=== PATIENT | female | born 1970 | race Caucasian/White ===

== ENCOUNTER 2018-04-20 03:39 | Inpatient (IN) | payer SELFPAY ==
[2018-04-20] VITALS (17 sets, daily range): BP systolic 119–168; BP diastolic 55–113; PULSE 92–114; RESP 24; TEMP 93–96.6; O2SAT 74–100
[~2018-04-20] VITALS: Ht 165.1 cm; Wt 86.0 kg
[2018-04-20] MEDS ORDERED: NITROGLYCERIN-D5W 50 MG/250 ML 250 ML IV PRN ×3 (03:45→11:30)
[2018-04-20] MEDS ORDERED: ASPIRIN 300 MG SUPP RECTAL ONE (03:45)
[2018-04-20] MEDS ORDERED: HEPARIN SODIUM - IV 10,000 UNITS/10 ML VIAL IV PUSH STA (03:45)
[2018-04-20] MEDS ORDERED: SODIUM CHLORIDE 0.9% FLUSH 10 ML FLUSH IVF PRN ×2 (03:45)
[2018-04-20] MEDS ORDERED: LORazepam 2 MG/ML VIAL IV PUSH ONE (03:45)
[2018-04-20] MEDS ORDERED: NITROGLYCERIN 0.4 MG SL 25 TABS/BTL SL STA (03:45)
[2018-04-20] MEDS ORDERED: SODIUM CHLOR 0.9% 1000 ML INJ 1,000 ML IV ONE (03:45)
[2018-04-20] MEDS ORDERED: PROPOFOL 500 MG/50 ML INJ 50 ML ONE ×2 (03:54→05:43)
[2018-04-20] MEDS ORDERED: LORazepam 2 MG/ML VIAL ONE (03:54)
--- NOTE | 2018-04-20 04:09 | PD ---
HPI Chief Complaint: STEMI Alert Time Seen by Provider: 03:45 Travel History International Travel<30 days: No Contact w/Intl Traveler<30days: No History of Present Illness HPI The patient is a 46 year old female who presents to the [facility] emergency department with a history of arriving post cardiac arrest with return of spontaneous circulation by ambulance services. According to them, they were called by the family out to the patient's house related to shortness of breath. The patient had a witnessed arrest. The patient was noted to be in ventricular fibrillation upon their arrival. ACLS protocol was started and the patient was defibrillated twice, and also received 2 separate doses of epinephrine. The patient had return of spontaneous circulation, however she then coded again. Her rhythm was ventricular fibrillation. The patient received 4 separate defibrillatory shocks and an additional 4 mg of epinephrine. The patient received amiodarone 300 mg IV, 1 amp of bicarb, and again had return of spontaneous circulation. As the patient began to block the tube and seemed to be coming more responsive the patient was given 20 mg of etomidate IV. Initially during the resuscitative effort the patient was also given Narcan and 1 amp of bicarb. The patient's blood sugar was reportedly 296. The patient during the resuscitative effort was intubated with a 7-1/2 endotracheal tube that is 23 cm deep at the teeth. The patient had an OG tube placed prior to arrival. The patient had an intraosseous access placed in the right robbins. The patient also had a left 18-gauge Angiocath placed prior to arrival. The patient had an EKG done when she had return of spontaneous circulation that revealed ST segment elevation in 1, aVL, V4, V5, V6. The patient's daughter arrived at the bedside and reports a recent history of the patient being evaluated in the emergency department on April 15. The record was reviewed. The patient had been experiencing chest pain and vomiting patient had a workup done including CBC, CMP, cardiac enzymes. The patient had a EKG done that showed no acute abnormality according to the ER physician. The patient was given Pepcid IV, along with a GI cocktail and reportedly had relief of symptoms. The patient had a chest x-ray that showed perihilar infiltrates. The patient was discharged home with a prescription for omeprazole, Pepcid, ipratropium inhaler, azithromycin, and ciprofloxacin. The patient's only prior history from discussion with the patient's daughter is a history of depression, reportedly on citalopram. The patient's name is Florina Castillo. The patient' s daughter reports that she has had persistent chest pain since being discharged. The patient was apparently up in the night with chest pain when the patient's daughter went to check on her. She reported having shortness of breath associated with the pain. She then reported that she felt like she was going to pass out and then collapsed to the ground. She slowly fell to the ground. According to her daughter she did not appear to injure herself or hit her head. [facility] Past Medical History Narrative Medical The patient's past medical history is significant for depression. Past Surgical History Narrative Surgical The patient's past surgical history is significant for according to the electronic medical record a history of hysterectomy, excision of a mass of the left foot. Social History Alcohol Use: Yes Tobacco Use: Yes (1-1/2-2 packs per day) Substance Use: Yes (THC) Allergies-Medications (Allergen,Severity, Reaction): Coded Allergies: No Allergy Information Available (Unverified , 04/20/18) Reported Meds & Prescriptions Reported Meds & Active Scripts Active Reported Azithromycin 250 Mg Tab 250 Mg PO DIRECTED Take 2 tabs (500 mg) on day 1 then 1 tab daily x 4 days. Citalopram (Citalopram Hydrobromide) 20 Mg Tab 20 Mg PO DAILY Ciprofloxacin (Ciprofloxacin HCl) 500 Mg Tab 500 Mg PO BID Omeprazole 40 Mg Cap 40 Mg DAILY Review of Systems ROS Limitations: Intubated Cardiovascular: Positive: Chest Pain or Discomfort, Diaphoresis, Dyspnea on exertion Respiratory: Positive: Shortness of Breath Physical Exam Narrative General: The patient is a well-developed well-nourished female, diaphoretic on arrival, intubated, noted to be blinking. Head and Neck exam: Head is normocephalic atraumatic. Eyes: Patient is uncooperative with extraocular motion testing. The patient is noted to be blinking on arrival. The patient has pupils that are equal round and reactive to light at 4 mm Nose: Midline septum with pink mucous membranes Mouth: Dentition unremarkable. Moist mucus membranes. Posterior oropharynx is unable to be fully visualized as the patient has a 7-1/[address] Neck: No palpable lymphadenopathy. No nuchal rigidity. No thyromegaly. Cardiovascular: Regular rate and rhythm without murmurs, gallops, or rubs. No pulse deficit to the extremities on simultaneous auscultation and palpation of her radial artery. Lungs: Clear to auscultation bilaterally. No wheezes, rhonchi, or rales. Abdomen: Soft, nondistended, no apparent tenderness on palpation of all 4 quadrants of the abdomen. No guarding, rebound, or rigidity. Normal bowel sounds are audible. No erythema or ecchymosis. Extremities: No clubbing, cyanosis, or edema. 2+ pulses in all 4 extremities. No calf tenderness on palpation. Back: No spinous process tenderness to palpation. No costovertebral angle tenderness to palpation. Neurologic Exam: The patient is post cardiac arrest, with pupils that are equal round and reactive to light. The patient is blinking on examination. The patient has no evidence of facial asymmetry. The patient is breathing above the vent at a rate of 22. The patient is moving her right upper extremity with purposeful movements. The patient is blinking in a regular fashion. The patient when asked to squeeze my hand purposefully flexes her right arm. The patient is responsive to painful stimulation in all extremities. Skin Exam: No rash noted. Intact skin that is cool and diaphoretic. Data Data Last Documented VS Vital Signs Date Time Temp Pulse Resp B/P (MAP) Pulse Ox O2 Delivery O2 Flow Rate FiO2 04/20/18 04:14 99 Ventilator 100 04/20/18 03:40 15.00 Orders Orders Propofol 500 Mg/50 Ml Inj (Diprivan 500 (04/20/18 03:54) Lorazepam Inj (Ativan Inj) (04/20/18 03:54) Troponin I (04/20/18 03:45) Ckmb (Isoenzyme) Profile (04/20/18 03:45) Complete Blood Count With Diff (04/20/18 03:45) I-Stat Profile (04/20/18 03:45) I-Stat Creatinine (04/20/18 03:45) Calcium (04/20/18 03:45) Magnesium (Mg) (04/20/18 03:45) Prothrombin Time / Inr (Pt) (04/20/18 03:45) Act Partial Throm Time (Ptt) (04/20/18 03:45) B-Type Natriuretic Peptide (04/20/18 03:45) Chest, Single Ap (04/20/18 03:45) Electrocardiogram (04/20/18 03:45) Oxygen Administration (04/20/18 03:45) Iv Access Insert/Monitor (04/20/18 03:45) Oximetry (04/20/18 03:45) Sodium Chlor 0.9% 1000 Ml Inj (Ns 1000 M (04/20/18 03:45) Sodium Chloride 0.9% Flush (Ns Flush) (04/20/18 03:45) Nitroglycerin Sl (Nitrostat Sl) (04/20/18 03:45) Nitroglycerin-D5w 50 Mg/250 Ml (Nitrogly (04/20/18 03:45) Heparin Inj (Heparin Inj) (04/20/18 03:45) Aspirin Supp (Aspirin Supp) (04/20/18 03:45) Rose-Gastric Tube Insert/Mon (04/20/18 03:45) Urinary Catheter Insert/Apply (04/20/18 03:45) Sodium Chloride 0.9% Flush (Ns Flush) (04/20/18 03:45) Lorazepam Inj (Ativan Inj) (04/20/18 03:45) Misc Information (Misc Information) (04/20/18 05:00) Propofol 1000 Mg/100 Ml Inj (Diprivan 10 (04/20/18 04:15) ^ Infusion (04/20/18 04:12) Admit Order (Ed Use Only) (04/20/18 04:16) Restraints Non-Violent SABA.Q3H (04/20/18 04:16) CKMB (04/20/18 03:45) CKMB% (04/20/18 03:45) Labs Laboratory Tests Test 04/20/18 03:45 04/20/18 04:11 White Blood Count 17.9 TH/MM3 Red Blood Count 4.78 MIL/MM3 Hemoglobin 14.1 GM/DL Bedside Hemoglobin 14.3 G/DL Hematocrit 43.1 % Bedside Hematocrit 42.0 % Mean Corpuscular Volume 90.1 FL Mean Corpuscular Hemoglobin 29.6 PG Mean Corpuscular Hemoglobin Concent 32.8 % Red Cell Distribution Width 13.8 % Platelet Count 270 TH/MM3 Mean Platelet Volume 8.5 FL Neutrophils (%) (Auto) 61.4 % Lymphocytes (%) (Auto) 33.4 % Monocytes (%) (Auto) 4.2 % Eosinophils (%) (Auto) 0.6 % Basophils (%) (Auto) 0.4 % Neutrophils # (Auto) 11.0 TH/MM3 Lymphocytes # (Auto) 6.0 TH/MM3 Monocytes # (Auto) 0.7 TH/MM3 Eosinophils # (Auto) 0.1 TH/MM3 Basophils # (Auto) 0.1 TH/MM3 CBC Comment AUTO DIFF Differential Total Cells Counted 100 Neutrophils % (Manual) 52 % Band Neutrophils % 6 % Lymphocytes % 30 % Monocytes % 8 % Neutrophils # (Manual) 11.1 TH/MM3 Metamyelocytes 3 % Myelocytes 1 % Differential Comment FINAL DIFF MANUAL Atypical Lymphocytes % Platelet Estimate NORMAL Platelet Morphology Comment NORMAL Red Cell Morphology Comment NORMAL Prothrombin Time 11.5 SEC Prothromb Time International Ratio 1.1 RATIO Activated Partial Thromboplast Time 28.7 SEC Bedside Sodium 141 MMOL/L Bedside Potassium 3.0 MMOL/L Bedside Chloride 105 MMOL/L Bedside Blood Urea Nitrogen 13 MG/DL Bedside Creatinine 0.8 MG/DL Bedside Glucose 336 MG/DL Calcium Level 7.7 MG/DL Phosphorus Level 8.8 MG/DL Magnesium Level 2.1 MG/DL Total Bilirubin 0.3 MG/DL Direct Bilirubin 0.1 MG/DL Indirect Bilirubin 0.2 MG/DL Aspartate Amino Transf (AST/SGOT) 113 U/L Alanine Aminotransferase (ALT/SGPT) 69 U/L Alkaline Phosphatase 99 U/L Total Creatine Kinase 155 U/L Creatine Kinase MB 2.9 NG/ML Troponin I 0.08 NG/ML B-Type Natriuretic Peptide 37 PG/ML Total Protein 6.7 GM/DL Albumin 3.3 GM/DL Lipase 188 U/L Ethyl Alcohol Level LESS THAN 3 MG/DL Blood Gas Puncture Site RT RADIAL Blood Gas Patient Temperature 98.6 Blood Gas HCO3 17 mmol/L Blood Gas Base Excess -9.3 mmol/L Blood Gas Oxygen Saturation 96 % Arterial Blood pH 7.23 Arterial Blood Partial Pressure CO2 42 mmHg Arterial Blood Partial Pressure O2 313 mmHG Arterial Blood Oxygen Content 19.0 Vol % Arterial Blood Carboxyhemoglobin 2.6 % Arterial Blood Methemoglobin 0.8 % Blood Gas Hemoglobin 13.6 G/DL Oxygen Delivery Device VENTILATOR Blood Gas Ventilator Setting PRVC / AC / Blood Gas Inspired Oxygen 100 % MDM Medical Decision Making Medical Screen Exam Complete: Yes Emergency Medical Condition: Yes Medical Record Reviewed: Yes Differential Diagnosis Cardiac arrhythmia leading to cardiac arrest, versus acute coronary syndrome, versus STEMI, versus respiratory failure and hypoxia leading to cardiac arrest, versus pulmonary embolism Narrative Course During the course of the patient's emergency department visit, the patient was placed on a desk monitor with oximetry and frequent blood pressure monitoring. The patient had IV access obtained and blood work sent for analysis. A STEMI alert was called upon the patient's arrival at 3:41 AM. I spoke to Dr. Lynn, the electronic warfare operator on-call, at 3:50 AM. A lengthy discussion ensued regarding the patient's recent history, examination findings, laboratory studies that are currently available for review, and EKG findings. He explained that as the patient's ST segment elevation has resolved on repeat EKG done on initial arrival in the emergency department, he did not think that a cardiac catheterization emergently was necessary. He recommended further stabilization in the intensive care unit and cardiac catheterization later today. The patient was initially provided aspirin 300 mg SC 1, heparin per STEMI protocol was administered IV. The patient was continued on amiodarone and started on an amiodarone drip. A Ordonez catheter was placed to gravity. An OG tube had been placed by the fire rescue team. A G-tube was placed to low intermittent gravity. A chest x-ray was ordered. An i-STAT with creatinine was ordered. The patient's laboratory studies were reviewed and remarkable for a white count of 17.9, hemoglobin 14.3, platelets 270 with 52 neutrophils, 6 bands, 30 lymphocytes, 8 monocytes, i-STAT with creatinine reveals a potassium of 3.0, glucose 336, calcium 7.7, CPK 155, troponin I 0.08, BNP 37, PT PTT within normal limits. ABG reveals a pH of 7.23, PCO2 42, PO2 312, bicarb 17. The patient's respiratory rate was increased to 20. Patient's LFTs revealed a AST of 113, ALT 69, magnesium 2.1, albumin 3.3, lipase 188. Urine drug screen is positive for cannabinoids, alcohol level is less than 3. Radiology studies were reviewed and remarkable for a chest x-ray that shows no acute cardiopulmonary disease. A call was placed out to the intensive care physician, Dr. Caldwell. He came urgently to the emergency department and evaluated the patient and assess the patient for consideration for cooling given her V. fib arrest. Prior to him arriving the patient had what appeared to be generalized tonic- clonic seizure activity. The patient was given Ativan 1 mg IV which aborted the activity. Propofol will be given for sedation on the ventilator, however this was held until initial assessment by the azure developer. The patient was admitted to the hospital in critical condition and sent to a bed under the care of the azure developer. Critical Care Narrative Aggregate critical care time was 37 minutes. Time to perform other separately billable procedures was not included in the critical care time. My time did not include minutes spent treating any other patients simultaneously or on activities that did not directly contribute to the patient's treatment. The services I provided to this patient were to treat and/or prevent clinically significant deterioration that could result in: Cardiovascular collapse from cardiac arrhythmia, versus respiratory failure I provided critical care services requiring my management, as noted below: Chart data review, documentation time, medication orders and management, vital sign assessments/reviewing monitor data, ordering and reviewing lab tests, ordering and interpreting/reviewing x-rays and diagnostic studies, care of the patient and discussion of the patient with the admitting physicians. Physician Communication Physician Communication The patient's case including history, pertinent physical examination findings, and laboratory studies were discussed with Dr. Lynn, the electronic warfare operator, Dr. Caldwell, the azure developer. It was agreed that the patient would be admitted to the azure developer service. Diagnosis Primary Impression: Cardiopulmonary arrest with successful resuscitation Admitting Information Admitting Physician Requests: Admit Jill Bello MD April 20, 2018 04:09
[2018-04-20] MEDS ORDERED: PROPOFOL 1000 MG/100 ML INJ 100 ML IV PRN ×2 (04:15→04:30)
[2018-04-20] MEDS ORDERED: CIPR500T2 PO (04:18)
[2018-04-20] MEDS ORDERED: OMEP40CA2 (04:18)
[2018-04-20] MEDS ORDERED: CITA20TA4 PO (04:18)
[2018-04-20] MEDS ORDERED: AZIT250T3 PO (04:18)
--- NOTE | 2018-04-20 04:19 | RADRPT ---
EXAM DATE: 04/20/2018 4:13 AM EDT AGE/SEX: 89 years / Female INDICATIONS: Stemi alert. CLINICAL DATA: This is the patient's initial encounter. Patient reports that signs and symptoms have been present for 1 day and indicates a pain score of Nonresponsive. MEDICAL/SURGICAL HISTORY: Non-responsive. Non-responsive. COMPARISON: No prior exams available for comparison. FINDINGS: The lungs are clear without infiltrate, nodule, or mass. There is no appreciable pleural effusion for technique. Heart and mediastinum are unremarkable. NG tube is present with tip in the stomach. ET tube is present with tip approximately 2 to 3 cm abov e the fela. CONCLUSION: No acute cardiopulmonary disease. Electronically signed by: Shahriar Lang MD 04/20/2018 4:17 AM EDT
[2018-04-20 04:23] LABS: BASOPHIL # 0.1 TH/MM3 (0-0.2); BASOPHIL % 0.4 % (0.0-2.0); EOSINOPHIL # 0.1 TH/MM3 (0-0.4); EOSINOPHIL % 0.6 % (0.0-4.0); HEMATOCRIT 43.1 % (35.0-46.0); HEMOGLOBIN 14.1 GM/DL (11.6-15.3); LYMPH % 33.4 % (9.0-44.0); MEAN CELL VOLUME 90.1 FL (80.0-100.0); MEAN CORPUSCULAR HEMOGLOBIN 29.6 PG (27.0-34.0); MEAN CORPUSCULAR HGB CONC 32.8 % (32.0-36.0); MEAN PLATELET VOLUME 8.5 FL (7.0-11.0); MONO % 4.2 % (0.0-8.0); MONOCYTE # 0.7 TH/MM3 (0-0.9); NEUT % 61.4 % (16.0-70.0); PLATELET COUNT 270 TH/MM3 (150-450); RED BLOOD COUNT 4.78 MIL/MM3 (4.00-5.30); RED CELL DISTRIBUTION WIDTH 13.8 % (11.6-17.2); WHITE BLOOD COUNT 17.9 TH/MM3 (4.0-11.0)
[2018-04-20 04:24] LABS: TROPONIN I 0.08 NG/ML (0.02-0.05)
[2018-04-20 04:25] LABS: CALCIUM 7.7 MG/DL (8.5-10.1); MAGNESIUM 2.2 MG/DL (1.5-2.5)
[2018-04-20] MEDS ORDERED: MEPERIDINE HCL 25 MG/ML VIAL IV PUSH PRN (04:30)
[2018-04-20] MEDS ORDERED: POTASSIUM PHOSPHATE MONOBASIC 500 MG TAB PO/TUBE PRN ×2 (04:30→07:00)
[2018-04-20] MEDS ORDERED: ARTIFICIAL TEARS OPTH OINT 3.5 APPLIC/3.5 GM TUBO EACH EYE PRN ×2 (04:30→07:00)
[2018-04-20] MEDS ORDERED: MAGNESIUM SULFATE INJ 4 GM in SODIUM CHLOR 0.9% 250 ML INJ 242 ML IV PRN (04:30)
[2018-04-20] MEDS ORDERED: CHLORHEXIDINE GLUCONATE 2 % 1 PACK (2 CLOTHS) TOP PRN ×2 (04:30→07:00)
[2018-04-20] MEDS ORDERED: POTASSIUM CHLOR 40 MEQ PREMIX 100 ML IV PRN ×4 (04:30→07:00)
[2018-04-20] MEDS ORDERED: NURSING INFORMATION XX SCH ×2 (04:30→07:00)
[2018-04-20] MEDS ORDERED: NOREPINEPHRINE INJ 4 MG in SODIUM CHLOR 0.9% 250 ML INJ 246 ML IV PRN ×3 (04:30→07:00)
[2018-04-20] MEDS ORDERED: POTASSIUM CHLOR 20 MEQ PREMIX 100 ML IV PRN ×4 (04:30→07:00)
[2018-04-20] MEDS ORDERED: MAGNESIUM SULFATE INJ 2 GM in SODIUM CHLORIDE 0.9% INJ 96 ML IV PRN ×2 (04:30→07:00)
[2018-04-20] MEDS ORDERED: CISATRACURIUM BESYLATE 20 MG/10 ML VIAL IV PUSH ONE (04:30)
[2018-04-20] MEDS ORDERED: SODIUM CHLORIDE 0.9% FLUSH 10 ML FLUSH IV FLUSH PRN (04:30)
[2018-04-20] MEDS ORDERED: SODIUM PHOSPHATE INJ 30 MMOL in SODIUM CHLOR 0.9% 250 ML INJ 240 ML IV PRN ×2 (04:30→07:00)
[2018-04-20] MEDS ORDERED: MAGNESIUM SULFATE INJ 4 GM in SODIUM CHLORIDE 0.9% INJ 92 ML IV PRN ×2 (04:30→07:00)
[2018-04-20] MEDS ORDERED: POTASSIUM PHOSPHATE MONOBASIC 500 MG TAB PO PRN ×2 (04:30→07:00)
[2018-04-20] MEDS ORDERED: RESP: ALBUTEROL 2.5 MG/IPRATROPIUM 0.5 MG NEB (PRN) INH (04:30)
[2018-04-20] MEDS ORDERED: POTASSIUM PHOSPHATE INJ 30 MMOL in SODIUM CHLOR 0.9% 250 ML INJ 250 ML IV PRN ×2 (04:30→07:00)
[2018-04-20] MEDS ORDERED: LORazepam 2 MG/ML VIAL IV PUSH PRN ×2 (04:30→07:00)
[2018-04-20] MEDS ORDERED: MAGNESIUM OXIDE 400 MG TAB PO PRN ×2 (04:30→07:00)
[2018-04-20 04:35] LABS: INTERNATIONAL NORMALIZED RATIO 1.1 RATIO; PROTHROMBIN TIME - PATIENT 11.5 SEC (9.8-11.6)
[2018-04-20] MEDS ORDERED: CISATRACURIUM INJ 100 MG in SODIUM CHLOR 0.9% 250 ML INJ 240 ML IV PRN (05:00)
--- NOTE | 2018-04-20 05:06 | HHI.HP ---
[facility] Service Critical Care Medicine Primary Care Physician No Primary Care Physician Admission Diagnosis Post code Diagnosis: Chief Complaint: [id number] v. fib arrest Travel History International Travel<30 Days: No Contact w/Intl Traveler <30 Da: No Traveled to Known Affected Are: No History of Present Illness NOTE: Patient name is ANA LOPES. [id number]. 1970 This is a 47yF with history of 2ppd tobacco use who presented on 04/18 with complaints of chest pain radiating to the back. she was diagnosed at that time with atypical chest pain and GERD and sent home with azithromycin, ciprofloxacin , famotidine, and omeprazole. Tonight, she again complained to her daughter of crushing substernal chest pain. EMS was called, but the patient collapsed. presenting rhythm was V. Fib. patient was defibrillated initially x 1 with ROSC but decompensated into v. fib again requiring multiple rounds of epi and defibrillation before ROSC was obtained. Per ER physician, she was ? following commands post arrest, but then had seizure-like activity and was given iv ativan. On my arrival to the ER, she has briskly reactive pupils, + cough, + gag. RUE is ?purposeful and questionably crossing midline. LUE appears to be extensor posturing. EKG post ROSC by EMS shows ST elevations in the precordial leads, but EKG on arrival to ED does not demonstrate ST elevations. bedside critical care echo demonstrates what appears to be anteroseptal hypokinesis which is regional. labs remarkable for trop 0.08. no additional information available from patient due to her clinical condition. ROS unobtainable. I discussed the case with Dr. Bello as well as Dr. Lynn. Dr. Lynn would like to stabilize the patient and take her urgently for [facility]. We both agree she is a good post-arrest induced hypothermia candidate, but until intervention is performed, will anticipate targeted temperature therapy targeting 36 degrees Celsius to mitigate any bleeding concerns. Review of Systems ROS Limitations: Clinical Condition, Intubated, Altered Mental Status, Unresponsive Past Family Social History Allergies: Coded Allergies: No Allergy Information Available (Unverified , 04/20/18) Past Medical History History obtained from ER visit on 04/18 under other medical record: Asthma Depression Cervical Cancer Past Surgical History Hysterectomy Excision Mass left foot Reported Medications Citalopram 10mg daily Active Ordered Medications See MAR Family History Per her daughter, no family history of coronary artery disease Social History smokes 2ppd. drinks occasionally. +Marijuana use. Physical Exam Vital Signs Vital Signs Date Time Temp Pulse Resp B/P (MAP) Pulse Ox O2 Delivery O2 Flow Rate FiO2 04/20/18 04:28 100 45 04/20/18 04:14 99 Ventilator 100 04/20/18 04:14 99 Ventilator 100 04/20/18 03:42 100 100 04/20/18 03:40 100 15.00 100 Physical Exam GENERAL: Middle-aged appearing female, lying in bed, intubated obtunded HEENT: Normocephalic. Atraumatic. Pupils 4 mm, equal, round, briskly reactive , conjugate. Intact oculocephalic reflex. Mucous membranes are moist NECK: Trachea is midline. There is no JVD. CHEST: Equal chest rise. ACV, respiratory rate 20, tidal volume 550, PEEP of 10 , FiO2 100% CARDIOVASCULAR: Tachycardic rate, regular rhythm. Sinus. ABDOMEN: Soft, nontender, nondistended. No guarding. MUSCULOSKELETAL: Pulses 2+. No peripheral edema. NEUROLOGICAL: RASS -4. Right upper extremity withdraws to pain. Left upper extremity extensor postures. Bilateral lower extremities extensor postures. Intact gag. Intact cough. Pupils as above. Laboratory Laboratory Tests Test 04/20/18 03:45 04/20/18 04:11 White Blood Count 17.9 Red Blood Count 4.78 Hemoglobin 14.1 Bedside Hemoglobin 14.3 Hematocrit 43.1 Bedside Hematocrit 42.0 Mean Corpuscular Volume 90.1 Mean Corpuscular Hemoglobin 29.6 Mean Corpuscular Hemoglobin Concent 32.8 Red Cell Distribution Width 13.8 Platelet Count 270 Mean Platelet Volume 8.5 Neutrophils (%) (Auto) 61.4 Lymphocytes (%) (Auto) 33.4 Monocytes (%) (Auto) 4.2 Eosinophils (%) (Auto) 0.6 Basophils (%) (Auto) 0.4 Neutrophils # (Auto) 11.0 Lymphocytes # (Auto) 6.0 Monocytes # (Auto) 0.7 Eosinophils # (Auto) 0.1 Basophils # (Auto) 0.1 CBC Comment AUTO DIFF Prothrombin Time 11.5 Prothromb Time International Ratio 1.1 Activated Partial Thromboplast Time 28.7 Bedside Sodium 141 Bedside Potassium 3.0 Bedside Chloride 105 Bedside Blood Urea Nitrogen 13 Bedside Creatinine 0.8 Bedside Glucose 336 Calcium Level 7.7 Magnesium Level 2.2 Total Creatine Kinase 155 Creatine Kinase MB 2.9 Troponin I 0.08 Blood Gas Puncture Site RT RADIAL Blood Gas Patient Temperature 98.6 Blood Gas HCO3 17 Blood Gas Base Excess -9.3 Blood Gas Oxygen Saturation 96 Arterial Blood pH 7.23 Arterial Blood Partial Pressure CO2 42 Arterial Blood Partial Pressure O2 313 Arterial Blood Oxygen Content 19.0 Arterial Blood Carboxyhemoglobin 2.6 Arterial Blood Methemoglobin 0.8 Blood Gas Hemoglobin 13.6 Oxygen Delivery Device VENTILATOR Blood Gas Ventilator Setting PRVC / AC / Blood Gas Inspired Oxygen 100 Result Diagram: 04/20/18344 Imaging Last Impressions Head CT 04/20/18429 Signed Impressions: CONCLUSION: Unremarkable study. Chest X-Ray 04/20/18344 Signed Impressions: CONCLUSION: No acute cardiopulmonary disease. Septic Shock Reassessment Septic shock perfusion: reassessment completed Caprini VTE Risk Assessment Caprini VTE Risk Assessment: Mod/High Risk (score >= 2) Caprini Risk Assessment Model Point Value = 1 Point Value = 2 Point Value = 3 Point Value = 5 Age 41-60 Minor surgery BMI > 25 kg/m2 Swollen legs Varicose veins or History of unexplained or recurrent spontaneous Oral contraceptives or hormone replacement Sepsis (< 1 month) Serious lung disease, including pneumonia (< 1 month) Abnormal pulmonary function Acute myocardial infarction Congestive heart failure (< 1 month) History of inflammatory bowel disease Medical patient at bed rest Age 61-74 Arthroscopic surgery Major open surgery (> 45 min) Laparoscopic surgery (> 45 min) Malignancy Confined to bed (> 72 hours) Immobilizing plaster cast Central venous access Age >= 75 History of VTE Family history of VTE Factor V Leiden Prothrombin [id number] Lupus anticoagulant Anticardiolipin antibodies Elevated serum homocysteine Heparin-induced thrombocytopenia Other congenital or acquired thrombophilia Stroke (< 1 month) Elective arthroplasty Hip, pelvis, or leg fracture Acute spinal cord injury (< 1 month) Prophylaxis Regimen Total Risk Factor Score Risk Level Prophylaxis Regimen 0-1 Low Early ambulation 2 Moderate Order ONE of the following: *Sequential Compression Device (SCD) *Heparin 5000 units SQ BID 3-4 Higher Order ONE of the following medications: *Heparin 5000 units SQ TID *Enoxaparin/Lovenox 40 mg SQ daily (WT < 150 kg, CrCl > 30 mL/min) *Enoxaparin/Lovenox 30 mg SQ daily (WT < 150 kg, CrCl > 10-29 mL/min) *Enoxaparin/Lovenox 30 mg SQ BID (WT < 150 kg, CrCl > 30 mL/min) AND/OR *Sequential Compression Device (SCD) 5 or more Highest Order ONE of the following medications: *Heparin 5000 units SQ TID (Preferred with Epidurals) *Enoxaparin/Lovenox 40 mg SQ daily (WT < 150 kg, CrCl > 30 mL/min) *Enoxaparin/Lovenox 30 mg SQ daily (WT < 150 kg, CrCl > 10-29 mL/min) *Enoxaparin/Lovenox 30 mg SQ BID (WT < 150 kg, CrCl > 30 mL/min) AND *Sequential Compression Device (SCD) Assessment and Plan Assessment and Plan Assessment: 47-year-old female whose risk factor includes strong smoking history who presents with out of hospital V-fib arrest likely secondary to acute NC. Will proceed with targeted temperature therapy targeting 35.5C. I discussed extensively with cardiology who will plan to take her to left heart catheterization this morning. Remains very critically ill. Plan by systems: Neurologic: Hypoxic ischemic encephalopathy Frequent neurochecks Nimbex drip for shivering Questionable seizure activity in the emergency department. Will order EEG. Propofol for goal RASS -5 while paralyzed Avoid long-acting sedatives Targeted temperature therapy targeting 35.5C. Post left heart catheterization can decide whether or not we keep her at 35.[address] all the way down to 33C. Respiratory: Acute hypoxic and hypercarbic respiratory failure Likely component of pulmonary edema from left ventricular failure Vent bundle Head of bed elevated Nebs Wean FiO2 for goal SPO2 greater than 94% No SBT today Cardiovascular: Acute non-ST elevation myocardial infarction Out of hospital ventricular fibrillation cardiac arrest Heparin drip Lopressor for goal heart rate less than 100 Nitroglycerin drip targeting systolic blood pressure less than 120 Norepinephrine if needed to maintain coronary perfusion pressure Trend troponins Aspirin daily Cardiology consult Amiodarone load and drip at the request cardiology Renal: Acute kidney injury Likely secondary to poor perfusion from cardiac injury Daily BMP Temp sensing Ordonez -- Strict I/Os FEN/GI: Lactic acidosis ICU electrolyte protocol N.p.o. while in shock Place orogastric tube to suction Normal saline at 84 cc now Heme/ID: No infectious etiology suspected this time Type and screen Daily CBC Endocrine: Hyperglycemia of critical illness --Cardiovascular ICU insulin infusion Prophylaxis: GI Prophylaxis Pepcid DVT Prophylaxis -- SCDs Heparin drip Lines: 04/20 left femoral cooling catheter 04/20 right radial arterial line 04/20 Ordonez Dispo: Admit ICU. Very critically ill. This patient remains critically ill with one or more organ systems which are or may become a threat to life. I have spent in excess of 80 minutes discontinuously in the care and management of this patient. This time is exclusive of procedures, and includes, but is not limited to, evaluation of the patient, review of the medical record, discussions with family, consultants, nursing staff, or respiratory therapy, and documentation in the medical record. Fernando Caldwell MD April 20, 2018 05:06
[2018-04-20 05:08] LABS: BANDS 6 % (0-6); LYMPHOCYTES 30 % (9-44); METAMYELOCYTES 3 % (0-1); MONOCYTES 8 % (0-8); MYELOCYTES 1 % (0-0); NEUTROPHIL # MANUAL DIFF 11.1 TH/MM3 (1.8-7.7); POLYS (SEG NEUTROPHILS) 52 % (16-70)
[2018-04-20] MEDS ORDERED: ROCURONIUM INJ 50 MG/5 ML VIAL ONE (05:20)
[2018-04-20 05:30] LABS: ALKALINE PHOSPHATASE 99 U/L (45-117); TOTAL BILIRUBIN ADULT 0.3 MG/DL (0.2-1.0); TOTAL PROTEIN 6.7 GM/DL (6.4-8.2)
--- NOTE | 2018-04-20 05:36 | RADRPT ---
EXAM DATE: 04/20/2018 5:31 AM EDT AGE/SEX: 89 years / Female INDICATIONS: Syncope, status post code. CLINICAL DATA: This is the patient's initial encounter. Patient reports that signs and symptoms have been present for 1 day and indicates a pain score of Nonresponsive. MEDICAL/SURGICAL HISTORY: Non-responsive. Non-responsive. RADIATION DOSE: 56.35 CTDI (mGy) COMPARISON: No prior exams available for comparison. TECHNIQUE: CT of the head without contrast. Using automated exposure control and adjustment of the mA and/or kV according to patient size, radiation dose was kept as low as reasonably achievable to ob tain optimal diagnostic quality images. FINDINGS: There is no evidence for intracranial hemorrhage, mass effect, mass lesions, edema, or extra-axial fl uid collections. The visualized bony structures appear intact. The ventricles are normal size for t he patient's age. There are no signs of acute infarction for technique. CONCLUSION: Unremarkable study. Electronically signed by: Shahriar Lang MD 04/20/2018 5:35 AM EDT
[2018-04-20] MEDS ORDERED: METOPROLOL TARTRATE 5 MG/5 ML VIAL ONE ×4 (05:52→06:29)
[2018-04-20 05:53] LABS: ALBUMIN 3.3 GM/DL (3.4-5.0); ALT (GPT) 69 U/L (10-53); AST (GOT) 113 U/L (15-37); DIRECT BILIRUBIN ADULT 0.1 MG/DL (0.0-0.2); INDIRECT BILIRUBIN 0.2 MG/DL (0.0-0.8); MAGNESIUM 2.1 MG/DL (1.5-2.5); PHOSPHORUS 8.8 MG/DL (2.5-4.9)
[2018-04-20] MEDS ORDERED: NITROGLYCERIN-D5W 50 MG/250 ML 250 ML ONE (06:16)
[2018-04-20] MEDS ORDERED: SODIUM BICARBONATE 8.4% INJ 50 MEQ/50 ML SYR ONE ×3 (06:25→23:30)
[2018-04-20] MEDS ORDERED: AMIODARONE INJ 150 MG in DEXTROSE 5% IN WATER 100ML INJ 97 ML IV ONE ×2 (06:30)
[2018-04-20] MEDS ORDERED: AMIODARONE INJ 450 MG in DEXTROSE 5% IN WATE(EXCEL) INJ 241 ML IV PRN ×2 (06:40)
[2018-04-20] MEDS: CISATRACURIUM INJ 100 MG in SODIUM CHLOR 0.9% 250 ML INJ 240 ML IV PRN ×3 (06:43→19:00)
[2018-04-20] MEDS: PROPOFOL 1000 MG/100 ML INJ 100 ML IV PRN ×3 (06:43→19:00)
[2018-04-20] MEDS ORDERED: HEPARIN SODIUM - SQ 10,000 UNITS/ML VIAL ONE (06:48)
[2018-04-20] MEDS ORDERED: SODIUM CHLORIDE 0.9% IV ONE (07:00)
[2018-04-20] MEDS ORDERED: AMIODARONE IV ONE (07:00)
[2018-04-20] MEDS ORDERED: busPIRone HCL 5 MG TAB NG PRN (07:00)
[2018-04-20] MEDS ORDERED: NITROGLYCERIN IV PRN ×4 (07:00)
[2018-04-20] MEDS: HEPARIN INJ 25,000 UNITS in SODIUM CHLOR 0.9% 250 ML INJ 247.5 ML IV PRN (07:00)
[2018-04-20] MEDS ORDERED: SODIUM CHLOR 0.9% IV PRN ×5 (07:00→22:45)
[2018-04-20] MEDS ORDERED: HEPARIN SODIUM - IV 10,000 UNITS/10 ML VIAL IV PUSH ONE (07:00)
[2018-04-20] MEDS ORDERED: POTASSIUM CHLOR 40 MEQ PREMIX 100 ML IV ONE (07:00)
--- NOTE | 2018-04-20 07:13 | PD.PROCEDR ---
Procedure Note Procedure Procedure: Arterial Line Placement Right radial arterial line Diagnosis: Acute non-ST elevation myocardial infarction Indications: Need for beat to beat hemodynamic monitoring Consent: Emergent Description of the Procedure: The right wrist was prepped and draped sterilely. 1% lidocaine was used for local anesthesia. The pulse was located and a needle was advanced into the artery. A 20 gauge, 12 cm catheter was advanced into the artery using a modified Seldinger technique. The catheter was sutured to the skin and a sterile dressing was applied. The catheter was connected to a pressure transducer and an arterial waveform was noted. There were no immediate complications noted. There was minimal EBL. I personally performed the procedure. Fernando Caldwell MD April 20, 2018 07:13
--- NOTE | 2018-04-20 07:15 | PD.PROCEDR ---
Procedure Note Procedure Central Line Procedure Note Left femoral therapeutic hypothermia cooling catheter Diagnosis: Out of hospital ventricular fibrillation cardiac arrest Indications: Out of hospital V. fib arrest with persistent neurologic deficits Consent: Emergent Anesthesia: None Description of the Procedure: The patient was placed in the supine position. The area was prepped and draped sterilely. A 19g needle was inserted under negative pressure aspiration and dark venous blood was obtained. A guidewire was inserted easily without resistance. A small incision was made using a #11 blade. Using a modified Seldinger technique, the dilator and cooling catheter were advanced over the guidewire without resistance. All ports were aspirated and flushed, and had brisk blood return. The line was secured at the skin using 2-0 silk interrupted sutures because a StatLock device would not fit the configuration of the catheter. A Biopatch and Transparent sterile dressing were applied. There were no immediate complications noted. There was minimal EBL. The patient tolerated the procedure well. Ultrasound guidance was not used for this procedure. I personally performed the procedure. Fernando Caldwell MD April 20, 2018 07:15
[2018-04-20] MEDS ORDERED: SODIUM BICARBONATE 8.4% INJ 50 MEQ/50 ML SYR IV ONE ×3 (07:30→23:30)
[2018-04-20] MEDS ORDERED: METOPROLOL TARTRATE 5 MG/5 ML VIAL IV PUSH ONE ×2 (07:30→11:30)
--- NOTE | 2018-04-20 07:59 | MB ---
cc: Serafin Bello MD DATE: 04/20/2018 REASON FOR CONSULTATION: Evaluation for emergency cardiac catheterization. HISTORY OF PRESENT ILLNESS: This is a 47-year-old female admitted to the hospital after cardiac arrest. She has a history of smoking 2 packs per day. Apparently had an ER evaluation 04/18/2018 for atypical chest pain. Tonight, the patient complained to her daughter of a substernal chest pain. EMS was called. Presenting rhythm was ventricular fibrillation, was shocked once with return of spontaneous circulation, but then had recurrent VF and then a somewhat prolonged resuscitative effort. From talking to Dr. Caldwell, there is definitely evidence for neurological injury, but at this point I was somewhat hopeful that there could be recovery. Her EKG in the field showed sinus rhythm with an anterior injury pattern. EKG here does not show that, but we have decided based on her clinical presentation that a cardiac catheterization could be helpful to treat any critical lesions that could cause her to rearrest. PAST MEDICAL HISTORY: Obtained from the chart includes asthma, depression, cervical cancer. PAST SURGICAL HISTORY: Hysterectomy, excision of a mass on her left foot. MEDICATIONS: The only reported medication is Citalopram. FAMILY HISTORY: Negative for heart disease. SOCIAL HISTORY: Notable for smoking. PHYSICAL EXAMINATION: GENERAL: This is a mildly obese female who appears her stated age. VITAL SIGNS: Charted. HEENT: Atraumatic. NECK: No JVD. CHEST: Clear anteriorly. CARDIAC: Normal S1, S2. Regular rate and rhythm. I do not hear any gallops. ABDOMEN: Obese. EXTREMITIES: Reveal somewhat weakened pulses diffusely. EKG here did not show an injury pattern. LABORATORY DATA: Her AST and ALT are elevated. Troponin was 0.08 at 3:45. Potassium was 3.0, creatinine 0.8. Tox screen positive for cannabinoids. Head CT was unremarkable. Her chest x-ray showed no acute disease. PLAN: We will need to give her 1 aspirin prior to initiation of the catheterization. Plan is for a diagnostic catheterization. There is a significant chance she may require revascularization on her LAD based on the EKG pattern. Dr. Caldwell is handling hypothermia. Prognosis is very guarded at this point. MD UBALDO Dowling/VANCE , 07:40 AM , 07:57 AM
[2018-04-20] MEDS: CHLORHEXIDINE 0.12% (ORAL KIT) 15 ML CUP MT SCH ×2 (08:00→20:00)
[2018-04-20] MEDS ORDERED: HEPARIN-NS/PF INJ 1,500 ML ONE (08:07)
[2018-04-20] MEDS ORDERED: ASPIRIN 325 MG TAB ONE (08:11)
[2018-04-20] MEDS: SODIUM CHLORIDE 0.9% FLUSH 10 ML FLUSH IV FLUSH SCH ×2 (09:00→21:00)
[2018-04-20] MEDS ORDERED: TICAGRELOR 90 MG TAB PO ONE (09:48)
[2018-04-20] MEDS ORDERED: SODIUM CHLOR 0.9% 1000 ML INJ 1,000 ML IV SCH (10:14)
[2018-04-20] MEDS ORDERED: PILL SPLITTER OTHER PRN (10:30)
[2018-04-20] MEDS: RESP: ALBUTEROL 2.5 MG/IPRATROPIUM 0.5 MG NEB (SCH) INH ×3 (10:36→20:40)
--- NOTE | 2018-04-20 10:40 | CATHPROC ---
[email or web address] HIS Report Study Information Study Number Admission Scheduled Start Study Start [id number] Apr 20 2018 4:19AM 04/20/2018 Apr 20 2018 6:55AM [place] [facility] Cardiac Catheterization Admit Source Facility Department Other [facility] - [employer] Supervisor Physician and Clinical Staff Initial Serafin Lloyd Nailhead Operatorjuanito Quintana RN, Julian Nailhead OperatorJoseph Lawrence,VANESA Other cathlab, cathlab Recorder Edvin Molina RCIS(BS) Scrub Kaci JulianRT(R) Procedures Performed Procedure Location (Site) Vessel Name Coronary Angiograms LCA Left Coronary Coronary Angiograms RCA Right Coronary Drug Eluting Inflatio LAD Mid Left Coronary IABP Fem Art (right) Femoral Art L Heart Cath PTCA DIAG Prox Left Coronary PTCA LAD Mid Left Coronary Wire insertion Fem Art (right) Femoral Art Equipment Time Cleaning Technician Description Size Mfg Part Number Used/Scraped WIRE, BALANCE MIDDLEWEIGHT [id number] 08:55 [employer] 190CM Used 190CM *[id number] TRANSDUCER, TRUWAVE [id number] 06:57 SILVERIO FONTANA * Used W/STOCKCOCK *[id number] [id number] *[id number] [id number] *[id number] PIGTAIL ANG. 145 INFINITI 534-652S CATHETER *[id number] *[id number] BALLOON, FR7.5 40CC [id number] 09:52 MAQUET FR 7.5 40CC Used SENSATION PLUS 01U *[id number] 06:57 MED[employer] PACK, CCL CUSTOM * Used *[id number] 06:57 MEDLINE PACER PEN, SKIN DUAL W/ RULER * Used *[id number] 09:22 [employer] BALLOON, 1.5 X 15MM EUPHORA 15MM Used *[id number] 09:19 [employer] BALLOON, 2.0 X 15MM EUPHORA 15MM Used *[id number] 08:58 [employer] BALLOON, 2.5 X 15MM EUPHORA 15MM Used *[id number] BALLOON, 2.5 X 15MM NC [id number] 09:27 [employer] 15MM Used EUPHORA *[id number] BALLOON, 3.5 X 15MM NC [id number] 09:31 MEDTR[employer]IC 15MM Used EUPHORA *[id number] BALLOON, 3.5 X 20MM NC [id number] 09:11 [employer]TR[employer]IC 20MM Used EUPHORA *[id number] 09:06 [employer]IC STENT, 3.0 38MM WILLIAM 3.0 38MM [id number] Used [id number] 08:42 [employer] 30 SACHI INDEFLATOR Used *[id number] [id number] 09:19 [employer] 30 SACHI INDEFLATOR Used *[id number] [id number]-6F- 06:57 [employer] MEDICAL SHEATH, FR6.5 PRELUDE 11CM FR 6.5 038ACT Used *[id number] [id number]-7F- 08:43 [employer] MEDICAL SHEATH, FR7.5 PRELUDE 11CM FR 7.5 11CM Used [id number] 06:57 [employer] MEDICAL WIRE, 3MMJ .035 180CM 180CM Used *[id number] 06:57 [employer]AM[employer] MANIFOLD, 4 PORT * Used *[id number] 06:57 [employer] OMNIPAQUE, 350 MG, 150ML 150ML [id number] Used [id number] 06:57 [employer],WARM AIR CCL * Used *[id number] WIRE, RUNTHROUGH NS FLOPPY 25-1011 08:42 [employer] 180CM Used .014 180CM *[id number] WIRE, RUNTHROUGH NS FLOPPY 25-1011 09:14 [employer] 180CM Used .014 180CM *[id number] Equipment Model, Serial, Lot Number and Expiration Data Description Model Number Serial Number Lot Number Expiration Date STENT, 3.0 38MM WILLIAM [id number] 01-13-2020 History: Allergies Allergy Reaction No Allergy Information Available History: Risk Factors Family History of Hypertension Dyslipidemia Previous [place] Previous Heart Failure Premature CAD No No No No No Prior Valve Prior PCI Prior CABG Surgery No No No Cerebrovascular Peripheral Artery Chronic Lung On Dialysis Diabetes Disease Disease Disease No No No No No History: Symptoms/Diagnosis Selection Items Chest pain History: Stress Tests Stress or Imaging Studies Performed No History: Other Current Smoker Method Packs a Day Years Used Pack Years Yes Cigarettes 2 30 60 Labs Hgb (g/dl) Hct (%) WBC (l/cumm) Platelets (thousands) 11.60-17.00 35.00-51.00 4.00-11.00 150.00-450.00 14.1 42 17.9 270 Glucose (mg/dl) BUN (mg/dl) Creatinine (mg/dl) BUN:Creatinine (1:x) 74.00-106.00 7.00-18.00 0.50-1.30 10.00-20.00 336 13 0.8 16.3 Na (meq/l) K (meq/l) Cl (meq/l) 136.00-145.00 3.50-5.10 98.00-107.00 141 3 105 INR (PTT:PT) 0.90-1.10 1.1 Troponin I (ng/ml) CPK (u/l) CPK-MB (ng/ML) 0.02-0.05 26.00-308.00 0.50-3.60 0.08 155 2.9 Medication Medication Total Dose (Bolus/Oral) Medication Total Dosage/Unit 1% XYLOCAINE 20 mL ASPIRIN 325 mg BRILLINTA 180 mg NTG (IC) 100 mcg PROPOFOL 15 mL/hr Medications (Bolus/Oral) Medication Time Given Dosage/Unit Administered By Reason PROPOFOL 04/20/2018 7:51:54 AM 15 mL/hr Patient arrived on 15 mL/hr PROPOFOL via Peripheral IV. Pump/Drip Flow = 0 ml/hr using [Solution Name ]. ASPIRIN 04/20/2018 8:15:29 AM 325 mg Julian Quintana RN 325 mg ASPIRIN given in lab by Julian Quintana RN via Oral. Ordered by Serafin Bello. 1% XYLOCAINE 04/20/2018 8:25:23 AM 20 mL Serafin Bello 20 mL 1% XYLOCAINE given in lab by Serafin Bello in Right Groin via Subcutaneous. NTG (IC) 04/20/2018 9:09:55 AM 100 mcg Serafin Bello 100 mcg NTG (IC) given in lab by Serafin Bello via Intra-coronary. BRILLINTA 04/20/2018 9:58:18 AM 180 mg Julian Quintana RN 180 mg BRILLINTA given in lab by Julian Quintana RN in Per mouth via Oral. Ordered by Serafin Bello. Medication (Drip) Medication Time Given Dosage/Unit Concentration/Unit Diluent (ml) Solution HEPARIN DRIP 04/20/2018 7:51:55 AM 1000 units/hr 11510 units 250 D5W Patient arrived on 1000 units/hr HEPARIN DRIP via Peripheral IV. Pump/Drip Flow = 10 ml/hr using D5W [place] [address] units in 250 ml. NITROGLYCERIN DRIP 04/20/2018 7:51:55 AM 50 mcg/min 50 mg 250 D5W Patient arrived on 50 mcg/min NITROGLYCERIN DRIP via Peripheral IV. Pump/Drip Flow = 15 ml/hr using D 5W with a concentration of 50 mg in 250 ml. Initial Case Assessment Cardiovascular HR Rhythm NIBP 117 stachy 131/99 Edema Present Skin color Skin Mild Pale Cool Neurological State Unresponsive Respiration - General SpO2 (%) 96 Final Case Assessment Cardiovascular HR Rhythm NIBP 106 stachy 127/83 Edema Present Skin color Skin Mild Pale Cool Neurological State Unresponsive Respiration - General SpO2 (%) 95 Chronological Log Time Study Chronological Log 7:50:15 Patient arrived via Bed intubated, quattro cool catheter sutured in left femoral vein. 7:50:16 Patient Name, D.O.B, / Armband Verified By R.N. 7:50:30 Consent signed by the physician and the patient and verified by the [employer] Finishing Supervisor staff. 7:50:46 Pre-op and post- op instructions given; patient acknowledges understanding of instructions. 7:50:47 Verbal Stimulation=2 Physical Stimulation=2 Airway=2 Respiration=2 TOTAL=8. (0=absent, 1=portillo ited, 2=present) 7:50:54 Patient has been NPO for More than 6Hrs. 7:50:54 Skin Breakdown- none visible 7:50:55 Patient Warmer Placed on the Table. 7:51:51 Lakhwinder Prominences Protected 7:51:51 A # 20 IV was noted in the Antecubital (right). Grade = 0 7:51:52 A # 20 IV was noted in the Hand (right). Grade = 0 7:51:54 Patient arrived on 15 mL/hr PROPOFOL via Peripheral IV. Pump/Drip Flow = 0 ml/hr using [Solu tion Name]. Patient arrived on 1000 units/hr HEPARIN DRIP via Peripheral IV. Pump/Drip Flow = 10 ml/hr usin g D5W with a 7:51:[place] [address] units in 250 ml. Patient arrived on 50 mcg/min NITROGLYCERIN DRIP via Peripheral IV. Pump/Drip Flow = 15 ml/hr u sing D5W with a 7:51:55 concentration of 50 mg in 250 ml. 7:51:56 History and physical on the chart or being dictated. 8:00:17 MD arrived. Vitals capture started with the following parameters, Patient=Adult, Interval=5 min, Initial Pre sdhtx=993 mmHg, 8:02:16 Deflation Rate=5 mmHg, Cuff placed on Left Arm Vitals capture started with the following parameters, Patient=Adult, Interval=5 min, Initial Pre vxbei=018 mmHg, 8:05:45 Deflation Rate=5 mmHg, Cuff placed on Left Arm Assessment: Initial Case, TN=970 BPM, Rhythm=stachy, VSQY=452/99 mmhg, Edema=Mild, Color=Pale, S kin = Cool 8:05:46 Neurological: State=Unresponsive Respiration: SpO2=96 % 8:06:46 Reference ECG taken 8:06:51 Bilateral groins prepped with 2% chlorhexidine, and draped after a 3 minute waiting time. 8:07:02 CB=845 bpm, NNWG=872/99 mmhg, SpO2=95.0 %, Resp=14 B/min, Kaylie=4, Pfeiffer=5 8:07:58 Contrast Scanned 8:11:20 YV=672 bpm, MDSZ=698/129 mmhg, SpO2=96.0 %, Resp=15 B/min, Kaylie=4, Pfeiffer=5 8:15:29 325 mg ASPIRIN given in lab by Julian Quintana RN via Oral. Ordered by Serafin Bello. 8:16:30 PY=555 bpm, YNOP=373/77 mmhg, SpO2=90.0 %, Resp=20 B/min, Kaylie=4, Pfeiffer=5 8:19:01 Pressure channel 1 zeroed. 8:21:21 MS=289 bpm, AQOM=204/95 mmhg, SpO2=93.0 %, Resp=15 B/min, Kaylie=4, Pfeiffer=5 8:21:24 Pressure channel 1 zeroed. 8:21:42 Pressure channel 2 zeroed. Time Out. Correct patient, correct procedure, correct physician, labs, allergies, and equipment verified with laboratory administrative director 8:22:38 team present. Fire risk assesment completed (see hard stop sheet for coding). Time Out Concu rred by MD and individual staff in procedure. 8:23:20 Case Start 8:25:23 20 mL 1% XYLOCAINE given in lab by Serafin Bello in Right Groin via Subcutaneous. 8:27:12 Access site was Right Femoral Artery. 8:27:16 A SHEATH, FR6.5 PRELUDE 11CM FR 6.5 was advanced into the Fem Art (right) using the Percutan eous technique. Vitals capture started with the following parameters, Patient=Adult, Interval=5 min, Initial Pre hvhcy=474 mmHg, 8:28:03 Deflation Rate=5 mmHg, Cuff placed on Left Arm 8:28:39 YR=331 bpm, OOCA=284/92 mmhg, SpO2=94.0 %, Resp=16 B/min, Kaylie=4, Pfeiffer=5 A PIGTAIL ANG. 145 INFINITI CATHETER FR 6 was advanced over a wire. OMNIPAQUE, 350 MG, 150ML 150 ML was 8:30:30 used for injections. Recorded Pressure: LV, RU=947, Condition=Condition 1 8:31:19 (Left Ventricle) LV 129/13/15 Recorded Pressure: LV, Ao, MJ=257, Condition=Condition 1 8:33:20 (Left Ventricle) LV 128/15/19, (Aorta) Ao 123/99/110 8:33:41 Catheter was removed A JL 4.0 INFINITI CATHETER FR 6 was advanced over a wire. OMNIPAQUE, 350 MG, 150ML 150ML was use d for 8:33:42 injections. 8:35:16 XJ=402 bpm, ZQSR=019/107 mmhg, SpO2=93.0 %, Resp=15 B/min, Kaylie=4, Pfeiffer=5 8:36:13 The LCA was injected and visualized at various angles. OMNIPAQUE, 350 MG, 150ML 150ML used. Recorded Pressure: Ao, TR=866, Condition=Condition 1 8:36:29 (Aorta) Ao 109/99/103 8:38:17 Catheter was removed A 3DRC INFINITI CATHETER FR 6 was advanced over a wire. OMNIPAQUE, 350 MG, 150ML 150ML was used for 8:38:17 injections. 8:38:37 AE=665 bpm, JIJH=911/100 mmhg, SpO2=93.0 %, Resp=15 B/min, Kaylie=4, Pfeiffer=5 8:39:59 The RCA was injected and visualized at various angles. OMNIPAQUE, 350 MG, 150ML 150ML used. 8:40:29 Catheter was removed 8:40:38 Activated Clotting Time Drawn A SHEATH, FR7.5 PRELUDE 11CM FR 7.5 11CM was exchanged in the Fem Art (right). This was necessar y in order to 8:43:02 accomodate a larger catheter. Vitals capture started with the following parameters, Patient=Adult, Interval=5 min, Initial Pre wjkkr=576 mmHg, 8:45:32 Deflation Rate=5 mmHg, Cuff placed on Left Arm A XB 4.0 GUIDE CATHETER FR 7 was advanced over a wire. OMNIPAQUE, 350 MG, 150ML 150ML was used f or 8:45:37 injections. 8:46:00 ACT (Normal Range 90-180) = 306 8:46:20 A WIRE, RUNTHROUGH NS FLOPPY .014 180CM 180CM was inserted via Fem Art (right). Vitals capture started with the following parameters, Patient=Adult, Interval=5 min, Initial Pre ldqrj=696 mmHg, 8:47:50 Deflation Rate=5 mmHg, Cuff placed on Left Arm 8:48:23 IA=192 bpm, OPVO=276/102 mmhg, SpO2=95.0 %, Resp=15 B/min, Kaylie=4, Pfeiffer=5 8:54:19 Wire removed 8:55:02 JQ=236 bpm, ODRA=656/95 mmhg, SpO2=95.0 %, Resp=15 B/min, Kaylie=3, Pfeiffer=5 8:58:37 Pressure channel 1 zeroed. 8:59:47 A WIRE, BALANCE MIDDLEWEIGHT 190CM 190CM was inserted via Fem Art (right). 9:00:25 Interventional wire has crossed the lesion A BALLOON, 2.5 X 15MM EUPHORA 15MM was inserted over WIRE, BALANCE MIDDLEWEIGHT 190CM 190CM via the 9:00:27 LAD Mid. A BALLOON, 2.5 X 15MM EUPHORA 15MM over a WIRE, BALANCE MIDDLEWEIGHT 190CM 190CM in the LAD Mid was 9:00:39 inflated using a 30 SACHI INDEFLATOR at 6 sachi for 11 sec. A BALLOON, 2.5 X 15MM EUPHORA 15MM over a WIRE, BALANCE MIDDLEWEIGHT 190CM 190CM in the LAD Mid was 9:00:57 inflated using a 30 SACHI INDEFLATOR at 8 sachi for 30 sec. 9:03:13 Balloon Removed. 9:03:48 Activated Clotting Time Drawn Vitals capture started with the following parameters, Patient=Adult, Interval=5 min, Initial Pre tfbnp=596 mmHg, 9:04:09 Deflation Rate=5 mmHg, Cuff placed on Left Arm 9:04:54 DO=234 bpm, ONLP=924/106 mmhg, SpO2=94.0 %, Resp=15 B/min, Kaylie=3, Pfeiffer=5 A STENT, 3.0 38MM WILLIAM 3.0 38MM was advanced through a XB 4.0 GUIDE CATHETER FR 7 over a WIRE, B ALANCE 9:05:30 MIDDLEWEIGHT 190CM 190CM. A STENT, 3.0 38MM WILLIAM 3.0 38MM was advanced through a XB 4.0 GUIDE CATHETER FR 7 over a WIRE, B ALANCE 9:07:21 MIDDLEWEIGHT 190CM 190CM. A STENT, 3.0 38MM WILLIAM 3.0 38MM was deployed using a 30 SACHI INDEFLATOR at 12 atmospheres for 30 seconds in 9:07:52 the LAD Mid. 9:09:09 ACT (Normal Range 90-180) = 288 9:09:55 100 mcg NTG (IC) given in lab by Serafin Bello via Intra-coronary. 9:10:49 Delivery device removed 9:11:13 EC=985 bpm, BKGI=728/91 mmhg, SpO2=93.0 %, Resp=15 B/min, Kaylie=4, Pfeiffer=5 A BALLOON, 3.5 X 20MM NC EUPHORA 20MM was inserted over WIRE, BALANCE MIDDLEWEIGHT 190CM 190CM v ia 9:11:37 the Fem Art (right). A BALLOON, 3.5 X 20MM NC EUPHORA 20MM over a WIRE, BALANCE MIDDLEWEIGHT 190CM 190CM in the LAD M id 9:12:25 was inflated using a 30 SACHI INDEFLATOR at 20 sachi for 15 sec. 9:14:13 Balloon Removed. 9:14:21 A WIRE, RUNTHROUGH NS FLOPPY .014 180CM 180CM was inserted via Fem Art (right). 9:14:42 HX=205 bpm, YCTN=527/91 mmhg, Resp=15 B/min, Kaylie=4, Pfeiffer=5 9:17:50 Interventional wire has crossed the lesion A BALLOON, 2.0 X 15MM EUPHORA 15MM was inserted over WIRE, RUNTHROUGH NS FLOPPY .014 180CM 180CM via 9:18:56 the Fem Art (right). 9:19:43 LY=608 bpm, UYTH=999/103 mmhg, SpO2=90.0 %, Resp=15 B/min, Kaylie=4, Pfeiffer=5 9:21:55 Balloon Removed. A BALLOON, 1.5 X 15MM EUPHORA 15MM was inserted over WIRE, RUNTHROUGH NS FLOPPY .014 180CM 180CM via 9::56 the Fem Art (right). A BALLOON, 1.5 X 15MM EUPHORA 15MM over a WIRE, RUNTHROUGH NS FLOPPY .014 180CM 180CM in the SAMI G 9:24:08 Prox was inflated using a 30 SACHI INDEFLATOR at 14 sachi for 22 sec. A BALLOON, 1.5 X 15MM EUPHORA 15MM over a WIRE, RUNTHROUGH NS FLOPPY .014 180CM 180CM in the SAMI G 9:24:40 Prox was inflated using a 30 SACHI INDEFLATOR at 18 sachi for 23 sec. 9:24:46 YK=539 bpm, JAYU=392/98 mmhg, Resp=15 B/min, Kaylie=4, Pfeiffer=5 9:25:49 Balloon Removed. A BALLOON, 3.5 X 20MM NC EUPHORA 20MM was inserted over WIRE, BALANCE MIDDLEWEIGHT 190CM 190CM v ia 9:27:07 the Fem Art (right). A BALLOON, 2.5 X 15MM NC EUPHORA 15MM was inserted over WIRE, RUNTHROUGH NS FLOPPY .014 180CM 18 0CM 9:27:21 via the Fem Art (right). 9:29:47 KD=891 bpm, OUTH=870/95 mmhg, SpO2=91 %, Resp=15 B/min, Kaylie=3, Pfeiffer=5 9:30:42 Balloon Removed. A BALLOON, 3.5 X 15MM NC EUPHORA 15MM was inserted over WIRE, BALANCE MIDDLEWEIGHT 190CM 190CM v ia 9::43 the Fem Art (right). 9:34:46 JJ=853 bpm, VNAT=589/93 mmhg, SpO2=92.0 %, Resp=15 B/min, Kaylie=4, Pfeiffer=5 A BALLOON, 3.5 X 15MM NC EUPHORA 15MM over a WIRE, BALANCE MIDDLEWEIGHT 190CM 190CM in the LAD M id 9:35:12 was inflated using a 30 SACHI INDEFLATOR at 14 sachi for 40 sec. A BALLOON, 2.5 X 15MM NC EUPHORA 15MM over a WIRE, RUNTHROUGH NS FLOPPY .014 180CM 180CM in the LAD 9:35:24 Mid was inflated using a 30 SACHI INDEFLATOR at 18 sachi for 40 sec. 9:37:23 Balloon Removed. 9:37:24 Balloon Removed. 9:37:29 Wire removed 9:37:30 Wire removed 9:38:42 Catheter was removed 9:39:45 XY=862 bpm, CAGL=105/95 mmhg, SpO2=93.0 %, Resp=15 B/min, Kaylie=4, Pfeiffer=5 9:39:56 An injection in the Fem Art (right) was made through the SHEATH, FR7.5 PRELUDE 11CM FR 7.5 1 1CM. 9:46:37 Vitals capture stopped. Vitals capture started with the following parameters, Patient=Adult, Interval=5 min, Initial Pre gyjmm=869 mmHg, 9:46:44 Deflation Rate=5 mmHg, Cuff placed on Left Arm 9:47:05 Prepping for IABP insertion via RFA Vitals capture started with the following parameters, Patient=Adult, Interval=5 min, Initial Pre kvgqd=246 mmHg, 9:49:26 Deflation Rate=5 mmHg, Cuff placed on Left Arm 9:50:11 Sheath exchanged for intra-aortic balloon insertion. 9:51:40 Vitals capture stopped. An BALLOON, FR7.5 40CC SENSATION PLUS FR 7.5 40CC was advanced to the descending aorta. Proper p lacement 9:51:48 was confired under fluoroscopy and the balloon was sutured in place. Ratio = 1. Augmented BP 111 /88 Vitals capture started with the following parameters, Patient=Adult, Interval=5 min, Initial Pre egbjg=157 mmHg, 9:54:34 Deflation Rate=5 mmHg, Cuff placed on Left Arm 9:55:05 In the Fem Art (right) the 8.5FR IABP sheath was sutured in place by Serafin Bello. 9:55:07 MR=236 bpm, YAEB=503/83 mmhg, SpO2=93.0 %, Resp=15 B/min, Kaylie=4, Pfeiffer=5 9:58:18 180 mg BRILLINTA given in lab by Julian Quintana RN in Per mouth via Oral. Ordered by Ueyn Bello. 9:59:28 Case End Assessment: Final Case, CP=596 BPM, Rhythm=stachy, SRWC=813/83 mmhg, Edema=Mild, Color=Pale, Ski n = Cool 9:59:34 Neurological: State=Unresponsive Respiration: SpO2=95 % 10:00:00 Catheter(s) removed without difficulty 10:00:02 Sterile dressing applied to site 10:00:03 No case complications noted. 10:00:03 Cine recording checked. 10:00:10 KQ=473 bpm, SNYL=601/85 mmhg, SpO2=94.0 %, Resp=16 B/min, Kaylie=4, Pfeiffer=5 10:04:18 Bedside Report will be given. 10:04:25 A Left Heart Cath was performed. 10:05:11 XG=138 bpm, BKYR=255/82 mmhg, SpO2=95.0 %, Resp=15 B/min, Kaylie=4, Pfeiffer=5 10:10:14 UZZJ=300/79 mmhg, SpO2=95.0 %, Kaylie=4, Pfeiffer=5 10:15:11 FOZZ=162/88 mmhg, SpO2=97.0 %, Kyalie=4, Pfeiffer=5 10:16:19 Vitals capture stopped. 10:16:20 Patient moved to [facility] End Study - Contrast Media Used In Study Contrast Total Opened (mL) Total Used (mL) Total Wasted (mL) Omnipaque 250 250 0 End Study - Maximum Contrast Load Max Contrast Load (mL) 587.5 End Study - Radiation Exposure Fluoro Time (minutes) 19.8 End Study - Patient Disposition Complications Transferred To Interventional Outcome Not selected Critical Care Bed successful
--- NOTE | 2018-04-20 10:53 | MA ---
cc: Serafin Bello MD DATE: 04/20/2018 PROCEDURES PERFORMED: Left heart catheterization, left ventriculography, coronary angiography, complex balloon angioplasty and stenting of the left anterior descending artery with balloon angioplasty of the major diagonal branch through the side of the stent in the LAD, right femoral angiography, and intraaortic balloon pump insertion. DESCRIPTION OF PROCEDURE: The patient was brought to the cardiac catheterization emergency conditions. The right groin was prepped and draped in sterile fashion. Using 1% lidocaine for local anesthesia, a 6.5-Prydeinig sheath was inserted in the right femoral artery ,requiring only single stick. Left ventricular pressure was then recorded using a pigtail catheter, followed by left ventriculography and then a pullback. Coronary angiography was completed using a left 4 Maricarmen for the left coronary artery and a 3DRC for the right coronary artery. LAD was found to be occluded. We sized the sheath up to a 7-Prydeinig. I used a 7-Prydeinig XTB 4 LAD guiding catheter to engage the left main. LAD came off at a considerable angle and with mild difficulty, I was able to wire the LAD occlusion. The patient's ACT was therapeutic of note. The LAD was then dilated, which restored flow. There was a long lesion that extended just proximal to the septal and diagonal extending out into the mid LAD. I chose a 3.08, 38 mm Benjie stent to cover the entire lesion and deployed this at 12 atmospheres. The stent result looked good. I postdilated the proximal portion of the stent with a 3.5 x 20 mm NC balloon. At this point, the LAD stent looked good, but the diagonal had somewhat diminished flow with a 99% ostial stenosis. I wired the diagonal through the side of the stent with a Runthrough wire. I could not pass a 2.0 balloon, but was able to pass a 1.5 balloon. I then finished with a kissing balloon inflation. I used a 3.5 x 15 mm NC balloon in the LAD at 14 atmospheres and a 2.5 x 15 mm NC balloon in the diagonal at 18 atmospheres. After the balloons were inflated, angiography demonstrated an outstanding result. The balloons and wires were removed before final angiograms were performed and showed an outstanding hemodynamic result. I then obtained angiography of the right femoral artery via the sheath with consideration of doing Angio-Seal closure. It was noted that there was extremely sluggish flow in her peripheral circulation and with her cardiac output being only 10%, I then took a pause to consider a balloon pump. After careful consideration, I made a decision to put a balloon pump in to support her hemodynamically since her ejection fraction is so slow and I had clear evidence of very poor cardiac output. The sheath was exchanged over wire to an 8-Prydeinig balloon pump system with one-to-one counterpulsation initiated. She is on IV nitro and IV heparin. She is being moved back to ICU in stable, but critical condition. FINDINGS: 1. Hemodynamics: Left ventricular pressure is 128/15 with an end diastolic pressure of 19. Aortic pressure is 109/99 with a mean of 103. There was no gradient during pullback of the left ventricle to the aorta. Note that I think the LVEDP is actually higher than 19. It looked to be closer to 30 on direct inspection of the tracings. 2. Left ventriculography: Left ventriculography shows global akinesis of the left ventricle, sparing the anterobasal and posterobasal segments. Ejection fraction is only 10%. There is 2+ mitral regurgitation seen. 3. Coronary angiography: Left main coronary artery is large and normal-appearing. It trifurcates into an LAD, a ramus intermediate branch and a dominant circumflex. The LAD is totally occluded just past the first diagonal and first septal. There is a long zone of disease that extends up to the proximal LAD and into the mid LAD. The diagonal branch has about 20% stenosis at its origin. The circumflex artery is dominant and appears normal. The right coronary artery is nondominant with a 90% proximal tubular stenosis. 4. Results of stenting: Results of stenting of the LAD, now shows a 0% residual stenosis in the LAD with MARIA ANTONIA 3 flow and with balloon angioplasty of the diagonal branch, there is a 30% residual stenosis with normal MARIA ANTONIA 3 flow. CONCLUSIONS: 1. Elevated left ventricular end-diastolic pressure. 2. Severe left ventricular dysfunction, ejection fraction only 10%. 3. The pattern of the left ventricular wall motion is peculiar. It looks more suggestive of a Takotsubo syndrome. The area of akinesis extends outside of the left anterior descending infarct zone. 4. 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 5. Successful stenting of the left anterior descending with balloon angioplasty of the diagonal through the side of the stent with excellent angiographic results. 6. Evidence for very poor cardiac output, now with additional hemodynamic support from a balloon pump. PLAN: The patient is receiving Brilinta. We will continue aspirin, Brilinta, balloon pump support, nitroglycerin and heparin. Hypothermia protocol was initiated. PROGNOSIS: Guarded. MD UBALDO Dowling/DANIEL , 10:13 AM , 10:53 AM
[2018-04-20 11:18] LABS: HEMATOCRIT 44.7 % (35.0-46.0); HEMOGLOBIN 14.9 GM/DL (11.6-15.3); MEAN CELL VOLUME 87.6 FL (80.0-100.0); MEAN CORPUSCULAR HEMOGLOBIN 29.2 PG (27.0-34.0); MEAN CORPUSCULAR HGB CONC 33.4 % (32.0-36.0); PLATELET COUNT 284 TH/MM3 (150-450); RED CELL DISTRIBUTION WIDTH 13.8 % (11.6-17.2); WHITE BLOOD COUNT 19.4 TH/MM3 (4.0-11.0)
[2018-04-20 11:41] LABS: BICARBONATE 20.3 MEQ/L (21.0-32.0); CALCIUM 7.1 MG/DL (8.5-10.1); CREATININE 0.81 MG/DL (0.50-1.00); MAGNESIUM 1.9 MG/DL (1.5-2.5)
[2018-04-20 11:59] LABS: CALCIUM-PROTEIN CORRECTED 7.7 MG/DL (8.5-10.1)
[2018-04-20] MEDS: INSULIN REGULAR (IV INFUSION) 100 UNITS in SODIUM CHLORIDE 0.9% INJ 99 ML IV PRN ×3 (12:00→23:00)
[2018-04-20] MEDS: NOREPINEPHRINE INJ 4 MG in SODIUM CHLOR 0.9% 250 ML INJ 246 ML IV PRN ×2 (12:25→19:00)
[2018-04-20] MEDS ORDERED: EPINEPHrine HCL (1:10,000) 1 MG/10 ML SYRINGE ONE (12:41)
[2018-04-20] MEDS ORDERED: HEPARIN SODIUM - IV 10,000 UNITS/10 ML VIAL IV PUSH PRN ×2 (13:00)
[2018-04-20 13:28] LABS: HEMATOCRIT 43.4 % (35.0-46.0); HEMOGLOBIN 14.4 GM/DL (11.6-15.3); MEAN CELL VOLUME 88.9 FL (80.0-100.0); MEAN CORPUSCULAR HEMOGLOBIN 29.4 PG (27.0-34.0); MEAN CORPUSCULAR HGB CONC 33.1 % (32.0-36.0); MEAN PLATELET VOLUME 8.1 FL (7.0-11.0); PLATELET COUNT 247 TH/MM3 (150-450); RED BLOOD COUNT 4.89 MIL/MM3 (4.00-5.30); WHITE BLOOD COUNT 22.5 TH/MM3 (4.0-11.0)
[2018-04-20] MEDS ORDERED: FUROSEMIDE 40 MG/4 ML VIAL ONE (13:39)
[2018-04-20 13:43] LABS: ALBUMIN 2.2 GM/DL (3.4-5.0); ALKALINE PHOSPHATASE 76 U/L (45-117); ALT (GPT) 64 U/L (10-53); AST (GOT) 132 U/L (15-37); BICARBONATE 30.4 MEQ/L (21.0-32.0); BLOOD UREA NITROGEN 14 MG/DL (7-18); CALCIUM 9.6 MG/DL (8.5-10.1); CHLORIDE 113 MEQ/L (98-107); CREATININE 1.01 MG/DL (0.50-1.00); GLOMERULAR FILTRATION RATE 59 ML/MIN (>89); GLUCOSE,RANDOM 257 MG/DL (74-106); MAGNESIUM 4.3 MG/DL (1.5-2.5); PHOSPHORUS 2.1 MG/DL (2.5-4.9); SODIUM (NA) 155 MEQ/L (136-145); TOTAL BILIRUBIN ADULT 0.4 MG/DL (0.2-1.0); TOTAL PROTEIN 4.7 GM/DL (6.4-8.2)
--- NOTE | 2018-04-20 13:51 | PD.PROCEDR ---
Procedure Note Procedure Procedure: CPR Preop diagnosis: Cardiac arrest Postop diagnosis: Same Description: Responded to CODE BLUE cardiac arrest code activation. Patient went into asystole. CPR/ACLS protocol initiated. During ACLS patient was noted to be in V. fib and was defibrillated 4. CPR/ACLS protocol continued. Patient subsequently had return of spontaneous circulation following about 16 minutes of CPR/ACLS. Please see ACLS code sheet for details. Discussed with Dr. Serafin Bello regarding above events. Lxe Crisostomo MD April 20, 2018 13:51
--- NOTE | 2018-04-20 13:51 | RADRPT ---
EXAM DATE: 04/20/2018 1:48 PM EDT AGE/SEX: 47 years / Female INDICATIONS: Post cardiac arrest. CLINICAL DATA: This is the patient's subsequent encounter. Patient reports that signs and symptoms h ave been present for 1 day and indicates a pain score of Nonresponsive. MEDICAL/SURGICAL HISTORY: Non-responsive. Non-responsive. COMPARISON: [facility], CHEST SINGLE AP, 04/20/2018. . FINDINGS: CT and nasogastric tube in good position. Normal heart size with diffuse pulmonary edema. There is no pneumothorax. There is no pleural effusion. CONCLUSION: Moderate interstitial edema with normal heart size consistent with cardiac arrest. No pneumothorax. Electronically signed by: Alexsander Powers MD 04/20/2018 1:50 PM EDT
--- NOTE | 2018-04-20 13:53 | PD.PROCEDR ---
Procedure Note Procedure Procedure: Defibrillation Preop diagnosis: V. fib Postop diagnosis: Same Description: Responded to CODE BLUE cardiac arrest code activation. Initial rhythm asystole. ACLS protocol initiated. Patient subsequently noted to be in V. fib. Defibrillation 4 with 200 J following which patient had ROSC. Please see ACLS code sheet for details. Lex Crisostomo MD April 20, 2018 13:53
[2018-04-20] MEDS: EPINEPHrine 2 MG/D5W 250 ML IV PRN ×6 (14:00→21:00)
[2018-04-20] MEDS: fentaNYL DRIP 250 ML IV PRN (14:01)
--- NOTE | 2018-04-20 14:03 | EKG ---
Date Performed: 04/20/2018 Time Performed: 04:43:30 PTAGE: 89 years EKG: SINUS TACHYCARDIA LOW QRS VOLTAGE IN PRECORDIAL LEADS MODERATE ST DEPRESSION ABNORMAL ECG PREVIOUS TRACING : 04/20/2018 03.47 DOCTOR: Jevon Reyez Interpretating Date/Time 04/20/2018 14:01:56
--- NOTE | 2018-04-20 14:04 | EKG ---
Date Performed: 04/20/2018 Time Performed: 03:47:32 PTAGE: 89 years EKG: SINUS TACHYCARDIA MODERATE ST DEPRESSION ABNORMAL ECG INTERPRETATION BASED ON A DEFAULT AGE OF 39 YEARS NO PREVIOUS TRACING DOCTOR: Jevon Reyez Interpretating Date/Time 04/20/2018 14:02:43
[2018-04-20] MEDS ORDERED: IOHEXOL 350 MG/ML 100 ML BTL (for Cath Lab) OTHER ONE (14:32)
[2018-04-20] MEDS ORDERED: IOHEXOL 350 MG/ML 50 ML BTL (for Cath Lab) OTHER ONE (14:32)
[2018-04-20] MEDS ORDERED: FUROSEMIDE 40 MG/4 ML VIAL IV PUSH ONE (17:00)
--- NOTE | 2018-04-20 17:07 | MG ---
cc: Tata Downs MD, Dalia MD EEG NUMBER [id number] REFERRING PHYSICIAN: Dr. Vann CLINICAL HISTORY: Intubated. Diprivan started at 40, Nimbex at 3.3 mcg. Hyperventilation not done, only photic to code cool. The Diprivan was slowly lowered down during the study to 15 mcg. The patient apparently went into burst suppression pattern 14 minutes into the study. History of cardiac arrest with return to spontaneous circulation. Blood sugar 296, cardiac disease, stent, EF 10% when the patient came out of the [address] [place] on 04/20. History of alcohol, substance, tobacco use, on heparin, Diprivan and Nimbex DESCRIPTION OF RECORD: There is overall attenuation of the background, predominantly 1-2 Hz low-amplitude. Artifact noticed from the nurse touching the patient. Again about 2 x 2-3 Hz variable background. Diprivan at 30 mcg by epoch 72. There is some pattern at Epic 81, which looks like a burst suppressed pattern. Some activity then the background attenuates even more so it may very well be a burst suppressed Diprivan and then at Epic 98 this suppression decreased to 15. Pattern still has not changed. Photic stimulation does not show any driving response. IMPRESSION: Abnormal electroencephalogram due to suppressed background with occasional burst suppression. No epileptiform features. Clinical correlation advised. MD BRENT Kendall/ , 04:52 PM , 05:06 PM
[2018-04-20] MEDS ORDERED: EPINEPHrine HCL (1:10,000) 1 MG/10 ML SYRINGE IV ONE (17:30)
[2018-04-20] MEDS ORDERED: MIDAZOLAM HCL 2 MG/2 ML VIAL IV PRN (17:30)
[2018-04-20] MEDS ORDERED: VASOPRESSIN INJ 40 UNITS in DEXTROSE 5% IN WATER 100ML INJ 98 ML IV PRN ×2 (18:57)
[2018-04-20] MEDS: AMIODARONE INJ 450 MG in SODIUM CHLOR 0.9% (EXCEL) INJ 250 ML IV PRN ×2 (19:00→23:00)
[2018-04-20 19:15] LABS: BICARBONATE 17.7 MEQ/L (21.0-32.0); CALCIUM 7.7 MG/DL (8.5-10.1); CREATININE 1.3 MG/DL (0.50-1.00); MAGNESIUM 2.5 MG/DL (1.5-2.5)
[2018-04-20] MEDS ORDERED: ISOPROTERENOL INJ 2 MG in DEXTROSE 5% IN WATER INJ 250 ML IV PRN ×2 (19:15)
[2018-04-20] MEDS ORDERED: VASOPRESSIN INJ 40 UNITS in SODIUM CHLORIDE 0.9% INJ 98 ML IV PRN (19:15)
[2018-04-20] MEDS ORDERED: CALCIUM CHLORIDE INJ 2 GM in SODIUM CHLORIDE 0.9% INJ 100 ML IV ONE (19:30)
[2018-04-20] MEDS ORDERED: INSULIN HUMAN REGULAR 1,000 UNITS/10 ML VIAL IV PUSH ONE ×4 (20:00→23:00)
--- NOTE | 2018-04-20 20:40 | PD.PROCEDR ---
Procedure Note Procedure Central Line Procedure Note right IJ 8.5 Fr 10 cm introducer Sheath Diagnosis: Cardiogenic Shock Indications: cardiogenic shock with need for thermodilution cardiac output Consent: written consent was obtained from the family Anesthesia: propofol iv Description of the Procedure: The patient was placed in the supine, mild- Trendelenburg position. The area was prepped and draped sterilely. A 19g needle was inserted under negative pressure aspiration and dark venous blood was obtained. A guidewire was inserted easily without resistance. A small incision was made using a #11 blade. Using a modified Seldinger technique, the dilator and 8.5 Fr, 10 cm catheter were advanced over the guidewire without resistance. All ports were aspirated and flushed, and had brisk blood return. The line was secured at the skin using 2-0 silk interrupted sutures. A non- suture stat lock was not used due to the configuration of the introducer sheath. A Biopatch and Transparent sterile dressing were applied. There were no immediate complications noted. There was minimal EBL. The patient tolerated the procedure well. Ultrasound Guidance: Ultrasound guidance was used to identify the right internal jugular vein. The vascular anatomy of the right anterior neck was normal. The vessel was cannulated under direct, real-time ultrasound visualization. After placement of the guidewire, confirmation of the guidewire in the lumen of the vessel was made using ultrasound visualization, before dilation of the tract. A Chest x-ray has been ordered. I personally performed the procedure. Fernando Caldwell MD April 20, 2018 20:40
--- NOTE | 2018-04-20 20:45 | PD.PROCEDR ---
Procedure Note Procedure Pulmonary Artery Catheter Procedure Note Diagnosis: Cardiogenic shock Indications: Need for accurate thermodilution cardiac output Consent: Obtained from the family Anesthesia: Propofol IV Description of the Procedure: The patient was placed in the supine, mild-Reverse -Trendelenburg position. The area was prepped and draped sterilely. A 6 Fr pulmonary artery catheter was flushed, and all ports were checked, including PA , CVP, infusion port. The balloon was tested and inflated and deflated easily. Through an existing introducer sheath, the catheter was inserted to a depth of 20 cm and the balloon was inflated without resistance. The PA catheter was advanced under continuous waveform hemodynamic monitoring and appropriate RA, RV , PA, and PCWP waveforms were achieved. The balloon was deflated. The line was secured to the introducer sheath using a sterile cover. There were no immediate complications noted. There was minimal EBL. The patient tolerated the procedure well. PA catheter secured at: 47 cm. Hemodynamic Data: HR: 93 Art: 125/58 (94) mmHg RAP: 13 mmHg RV: 38/9 mmHg PAP: 33/20 (26) mmHg PCWP: 19 mmHg achieved at 48 cm Mixed Venous SvO2: 58 % Cardiac Output: 2.5 L/min Cardiac Index: 1.2 A Chest x-ray has been ordered. I personally performed the procedure. Fernando Caldwell MD April 20, 2018 20:45
[2018-04-20] MEDS ORDERED: METOPROLOL TARTRATE 25 MG TAB PO SCH (21:00)
[2018-04-20] MEDS: METOPROLOL TARTRATE 25 MG TAB PO SCH (21:00)
[2018-04-20] MEDS: TICAGRELOR 90 MG TAB PO SCH (21:00)
--- NOTE | 2018-04-20 21:18 | RADRPT ---
EXAM DATE: 04/20/2018 9:14 PM EDT AGE/SEX: 47 years / Female INDICATIONS: Central line placement. CLINICAL DATA: This is the patient's initial encounter. Patient reports that signs and symptoms have been present for 4 - 6 days and indicates a pain score of Nonresponsive. MEDICAL/SURGICAL HISTORY: None. None. None. COMPARISON: [facility] [place]ST [place]ING[place], 04/[place]. . FINDINGS: Stable ETT and NGT. Interval placement of right IJ pulmonary artery catheter with catheter tip in the proximal right pulmonary artery. No significant pneumothorax. Significantly improved diffuse interst itial and patchy airspace opacities. Cardiomegaly. Contours are stable. Remainder of exam is unchange d. CONCLUSION: 1. Stable ETT and NGT. 2. Right IJ pulmonary artery catheter with tip in the proximal right main pulmonary artery. No pneum othorax. 3. Significantly improved pulmonary edema pattern. Electronically signed by: Robbie Jules MD 04/20/2018 9:17 PM EDT
[2018-04-20] MEDS ORDERED: CISATRACURIUM IV PRN (22:45)
[2018-04-20] MEDS ORDERED: EPINEPHrine (1:1000) INJ 8 MG in SODIUM CHLOR 0.9% 250 ML INJ 242 ML IV PRN (23:00)
[2018-04-20] MEDS ORDERED: EPINEPHrine (1:1000) INJ 8 MG in DEXTROSE 5% IN WATER INJ 242 ML IV PRN ×2 (23:00)
[2018-04-20] MEDS ORDERED: NOREPINEPHRINE INJ 16 MG in SODIUM CHLOR 0.9% 250 ML INJ 234 ML IV PRN (23:00)
[2018-04-20] MEDS: SODIUM CHLOR 0.9% IV PRN ×2 (23:00)
[2018-04-20] MEDS: CISATRACURIUM IV PRN (23:00)
[2018-04-20] MEDS: ISOPROTERENOL IV PRN (23:00)
[2018-04-20 23:31] LABS: CHOLESTEROL/ HDL RATIO 2.32 RATIO; HDL CHOLESTEROL 48.7 MG/DL (40.0-60.0)
[2018-04-20 23:52] LABS: TROPONIN I 13.9 NG/ML (0.02-0.05)
[2018-04-21] VITALS (15 sets, daily range): BP systolic 97–126; BP diastolic 45–76; PULSE 20–121; RESP 20; TEMP 93.5–98.6; O2SAT 91–99
[2018-04-21] MEDS ORDERED: FUROSEMIDE 40 MG/4 ML VIAL ONE ×2 (02:40→08:57)
[2018-04-21] MEDS: INSULIN REGULAR (IV INFUSION) 100 UNITS in SODIUM CHLORIDE 0.9% INJ 99 ML IV PRN ×2 (03:00→18:26)
[2018-04-21] MEDS: RESP: ALBUTEROL 2.5 MG/IPRATROPIUM 0.5 MG NEB (SCH) INH ×4 (03:54→22:30)
[2018-04-21] MEDS ORDERED: CHLORHEXIDINE GLUCONATE 2 % 1 PACK (2 CLOTHS) TOP SCH (04:00)
[2018-04-21] MEDS ORDERED: POTASSIUM CHLOR 40 MEQ PREMIX 100 ML IV ONE (04:00)
[2018-04-21] MEDS: CHLORHEXIDINE GLUCONATE 2 % 1 PACK (2 CLOTHS) TOP SCH (04:00)
[2018-04-21] MEDS: EPOPROSTENOL NEB SOLUTION 50 NG/KG/MIN 100 ML NEB SCH ×6 (04:00→20:36)
[2018-04-21] MEDS ORDERED: CALCIUM CHLORIDE INJ 1 GM in SODIUM CHLORIDE 0.9% INJ 100 ML IV ONE ×2 (04:00→11:45)
[2018-04-21] MEDS ORDERED: POTASSIUM CHLOR 20 MEQ PREMIX 100 ML IV ONE (04:00)
--- NOTE | 2018-04-21 04:36 | HHI.CCPN ---
Subjective Remarks/Hospital Course Hospital Course: This is a 47yF with history of 2ppd tobacco use who presented on 04/18 with complaints of chest pain radiating to the back. she was diagnosed at that time with atypical chest pain and GERD and sent home with azithromycin, ciprofloxacin , famotidine, and omeprazole. Tonight, she again complained to her daughter of crushing substernal chest pain. EMS was called, but the patient collapsed. presenting rhythm was V. Fib. patient was defibrillated initially x 1 with ROSC but decompensated into v. fib again requiring multiple rounds of epi and defibrillation before ROSC was obtained. Per ER physician, she was ? following commands post arrest, but then had seizure-like activity and was given iv ativan. On my arrival to the ER, she has briskly reactive pupils, + cough, + gag. RUE is ?purposeful and questionably crossing midline. LUE appears to be extensor posturing. EKG post ROSC by EMS shows ST elevations in the precordial leads, but EKG on arrival to ED does not demonstrate ST elevations. bedside critical care echo demonstrates what appears to be anteroseptal hypokinesis which is regional. labs remarkable for trop 0.08. no additional information available from patient due to her clinical condition. ROS unobtainable. I discussed the case with Dr. Bello as well as Dr. Lynn. Dr. Lynn would like to stabilize the patient and take her urgently for [facility]. We both agree she is a good post-arrest induced hypothermia candidate, but until intervention is performed, will anticipate targeted temperature therapy targeting 36 degrees Celsius to mitigate any bleeding concerns. Patient taken to left heart cath today with large LAD thrombus which was successfully stented with good angiographic result. Patient is left coronary dominant. Post left heart cath, patient's EF by ventriculogram was 10% and patient was in cardiogenic shock. Intra-arterial balloon pump was placed. Patient was taken back to the CVICU. Patient had 2 more episodes of V. fib cardiac arrest which were successfully different related back into sinus rhythm. Despite maximal efforts, patient remains in florid cardiogenic shock with a lactate greater than 8 and significant multiorgan failure. I evaluated the patient at around 1830. She is mottled and poorly perfused. ScVo2 via central line is 30% despite IABP at 1-1. I had a long discussion with Dr. Bello who consulted with Dr. Lynn: They both feel that the patient's vascular anatomy is not amenable to placement of percutaneous left ventricular assist device, and mechanically we have nothing additional to offer the patient except for intra-arterial balloon pump. I long conversation with the family where I conveyed how critically ill she was and her poor prognosis if her ventricular function did not improve. I placed right IJ introducer sheath and PA catheter to monitor continuous cardiac output and filling pressures (see separate procedure note for details and hemodynamic data). By [place] she has a mixed venous sat of 58% and a cardiac index of 1.2. I started isoproterenol at 5 mcg/min and added vasopressin 0.04 U/min. She is already on Levophed at 30 mcg/min and epinephrine at 10 mcg/min. Lactate continues to up trend. She is severely hypokalemic with a potassium of 1.9 and acidotic with a pH of 7.19. Subjective: 04/21: remains critically ill in shock. lactate clearing to 3.3 from peak of 8. uop adequate. remains on IABP 1:1, isuprel at 8 mcg/min, epi at 5 mcg/min. intermittent cleviprex to keep sbp 110 - 130. remains hypothermic. PCWP 20 this AM. CI 1.5 despite high-dose inotropes. Objective Vital Signs Date Time Temp Pulse Resp B/P (MAP) Pulse Ox O2 Delivery O2 Flow Rate FiO2 04/21/18 04:00 98 60 04/21/18 03:00 Mechanical Ventilator 04/21/18 03:00 04/20/18 23:00 109 04/20/18 19:15 93.5 24 04/20/18 03:40 15.00 Result Diagram: 04/20/18 1317 04/20/18 1822 Other Results Laboratory Tests Test 04/20/18 06:08 04/20/18 08:08 04/20/18 12:45 04/20/18 14:25 Blood Gas Puncture Site ART LINE ART LINE ART LINE ART LINE Blood Gas Patient Temperature 98.6 98.6 98.6 98.6 Blood Gas HCO3 19 mmol/L (22-26) 20 mmol/L (22-26) 31 mmol/L (22-26) 19 mmol/L (22-26) Blood Gas Base Excess -6.3 mmol/L (-2-2) -4.1 mmol/L (-2-2) 7.0 mmol/L (-2-2) -6.6 mmol/L (-2-2) Blood Gas Oxygen Saturation 91 % (90-100) 87 % (90-100) 93 % (90-100) 86 % ( 90-100) Arterial Blood pH 7.29 (7.380-7.420) 7.39 (7.380-7.420) 7.44 (7.380-7.420) 7.30 (7.380-7.420) Arterial Blood Partial Pressure CO2 41 mmHg (38-42) 34 mmHg (38-42) 47 mmHg (38-42) 39 mmHg (38-42) Arterial Blood Partial Pressure O2 78 mmHg (61-120) 60 mmHg (61-120) 79 mmHg (61-120) 65 mmHg (61-120) Arterial Blood Oxygen Content 19.4 Vol % (12.0-20.0) 17.8 Vol % (12.0-20.0) 19.6 Vol % (12.0-20.0) 18.4 Vol % (12.0-20.0) Arterial Blood Carboxyhemoglobin 1.0 % (0-4) 0.7 % (0-4) 0.6 % (0-4) 0.3 % (0-4) Arterial Blood Methemoglobin 1.4 % (0-2) 1.3 % (0-2) 1.3 % (0-2) 1.3 % (0-2) Blood Gas Hemoglobin 15.2 G/DL (12.0-16.0) 14.6 G/DL (12.0-16.0) 15.0 G/DL (12.0-16.0) 15.2 G/DL (12.0-16.0) Oxygen Delivery Device VENTILATOR VENTILATOR AMBU VENTILATOR Blood Gas Ventilator Setting AC20/550/10PEEP 24/570/PEEP10 PC/AC Blood Gas Inspired Oxygen 100 % 100 % 100 % 100 % Blood Gas Liter Flow 15 L/M Imaging Last Impressions Head CT 04/20/18 2130 Signed Impressions: CONCLUSION: Unremarkable study. Chest X-Ray 04/20/18 3286 Signed Impressions: CONCLUSION: No acute cardiopulmonary disease. Objective Remarks GENERAL: Middle-aged appearing female, lying in bed, intubated, paralyzed HEENT: Normocephalic. Atraumatic. Pupils 4 mm, equal, round, briskly reactive , conjugate. Intact oculocephalic reflex. Mucous membranes are moist NECK: Trachea is midline. There is no JVD. right IJ introducer sheath and pa catheter in place, sites clean/dry/intact. CHEST: Equal chest rise. PC/AC 20/12, rate 20. fio2 60%. CARDIOVASCULAR: Tachycardic rate, regular rhythm. Sinus. ABDOMEN: Soft, nontender, nondistended. No guarding. MUSCULOSKELETAL: Pulses 2+. No peripheral edema. right groin IABP site c/d/i. left femoral cooling catheter site c/d/i. NEUROLOGICAL: RASS -5. deeply sedated and paralyzed. A/P Assessment and Plan Assessment: 47-year-old female with acute myocardial infarction s/p C with PCI to the LAD with persistent cardiogenic shock and associated multiorgan failure. continue hypothermic protocol. will plan to keep hypothermic until 24h after the last ROSC (~1500 today) and then begin rewarming at 0.25 degrees/hr. Continue inotropes and IABP at 1:1. very high risk for further decompensation and . guarded prognosis. remains very critically ill. Plan by systems: Neurologic: Hypoxic ischemic encephalopathy Frequent neurochecks Nimbex drip for shivering EEG 04/20: generalized slowing, burst suppression, no ictal activity Propofol, fentanyl for goal RASS -5 while paralyzed Avoid long-acting sedatives therapeutic hypothermia, target 34 degrees Celsius. start rewarming 1500 today at 0.25 degrees/hr. Respiratory: Acute hypoxic and hypercarbic respiratory failure Acute cardiogenic pulmonary edema Vent bundle Head of bed elevated Nebs Wean FiO2 for goal SPO2 greater than 90% No SBT today while in shock PEEP at 12. Cardiovascular: Acute non-ST elevation myocardial infarction Out of hospital ventricular fibrillation cardiac arrest Cardiogenic Shock Ischemic Cardiomyopathy, acute EF < 20% Acute pulmonary hypertension Heparin drip IABP, keep 1:1 today continue isuprel continue epinephrine levophed and vasopressin for goal map > 65 mmHg, augmented mean > 90 continue cleviprex for goal sbp 110 - 130 to minimize afterload. continue inhaled flolan for RV dysfunction and pulmonary hypertension (3.2 [place] units on RHC) may need milrinone at some point, but will hold off for now. Aspirin daily Cardiology consult: Dr. Bello continue Amiodarone drip trend lactates trend uop trend mixed venous sat q2h thermodilution cardiac output trend abg keep PA catheter today Renal: Acute kidney injury Likely secondary to poor perfusion from cardiac injury Daily BMP Temp sensing Ordonez -- Strict I/Os FEN/GI: Lactic acidosis ICU electrolyte protocol N.p.o. while in shock Place orogastric tube to suction saline lock ivf. Heme/ID: No infectious etiology suspected this time Type and screen Daily CBC Endocrine: Hyperglycemia of critical illness --Cardiovascular ICU insulin infusion Prophylaxis: GI Prophylaxis Pepcid DVT Prophylaxis -- SCDs Heparin drip Lines: 04/20 left femoral cooling catheter 04/20 right radial arterial line 04/20 [place] 04/20 right IJ introducer sheath 04/20 right IJ PA catheter 04/20 right femoral IABP Dispo: remain in ICU. Very critically ill. This patient remains critically ill with one or more organ systems which are or may become a threat to life. I have spent in excess of 77 minutes discontinuously in the care and management of this patient. This time is exclusive of procedures, and includes, but is not limited to, evaluation of the patient, review of the medical record, discussions with family, consultants, nursing staff, or respiratory therapy, and documentation in the medical record. Fernando Caldwell MD April 21, 2018 04:36
[2018-04-21 04:52] LABS: AUTOMATED NEUTROPHIL # 20.9 TH/MM3 (1.8-7.7); BASOPHIL # 0.1 TH/MM3 (0-0.2); BASOPHIL % 0.4 % (0.0-2.0); HEMATOCRIT 46.7 % (35.0-46.0); HEMOGLOBIN 15.8 GM/DL (11.6-15.3); LYMPH % 7.8 % (9.0-44.0); LYMPHOCYTE # 1.9 TH/MM3 (1.0-4.8); MEAN CELL VOLUME 86.9 FL (80.0-100.0); MEAN CORPUSCULAR HEMOGLOBIN 29.4 PG (27.0-34.0); MEAN CORPUSCULAR HGB CONC 33.8 % (32.0-36.0); MEAN PLATELET VOLUME 8.1 FL (7.0-11.0); MONO % 6.3 % (0.0-8.0); MONOCYTE # 1.5 TH/MM3 (0-0.9); NEUT % 85.5 % (16.0-70.0); PLATELET COUNT 240 TH/MM3 (150-450); RED BLOOD COUNT 5.37 MIL/MM3 (4.00-5.30); RED CELL DISTRIBUTION WIDTH 14.1 % (11.6-17.2); WHITE BLOOD COUNT 24.5 TH/MM3 (4.0-11.0)
[2018-04-21] MEDS: PROPOFOL 1000 MG/100 ML INJ 100 ML IV PRN (05:31)
[2018-04-21 05:35] LABS: BICARBONATE 23.6 MEQ/L (21.0-32.0); CALCIUM 7.9 MG/DL (8.5-10.1); CREATININE 0.79 MG/DL (0.50-1.00); MAGNESIUM 1.6 MG/DL (1.5-2.5)
[2018-04-21] MEDS: SODIUM CHLORIDE 0.9% FLUSH 10 ML FLUSH IV FLUSH SCH ×2 (07:38→20:29)
[2018-04-21] MEDS: CHLORHEXIDINE 0.12% (ORAL KIT) 15 ML CUP MT SCH ×2 (07:59→20:29)
[2018-04-21] MEDS: TICAGRELOR 90 MG TAB PO SCH ×2 (08:38→20:28)
[2018-04-21] MEDS: ASPIRIN 81 MG CHEW TAB PO SCH (08:38)
[2018-04-21] MEDS: ATORVASTATIN 40 MG TAB PO SCH (08:38)
[2018-04-21] MEDS ORDERED: LISINOPRIL 5 MG TAB PO SCH ×2 (09:00)
[2018-04-21] MEDS: METOPROLOL TARTRATE 25 MG TAB PO SCH ×2 (09:00→19:56)
[2018-04-21] MEDS ORDERED: ISOPROTERENOL IV PRN ×2 (09:15→10:00)
[2018-04-21] MEDS ORDERED: SODIUM CHLOR 0.9% IV PRN ×2 (09:15→10:00)
[2018-04-21] MEDS ORDERED: MILRINONE INJ 20 MG in SODIUM CHLORIDE 0.9% INJ 80 ML IV SCH (09:45)
[2018-04-21] MEDS ORDERED: FUROSEMIDE 100 MG/10 ML VIAL IV PUSH ONE (09:45)
[2018-04-21] MEDS: MILRINONE INJ 20 MG in SODIUM CHLORIDE 0.9% INJ 80 ML IV SCH ×2 (09:46→16:39)
[2018-04-21] MEDS ORDERED: EPINEPHrine (1:1000) INJ 8 MG in SODIUM CHLOR 0.9% 250 ML INJ 242 ML IV PRN (10:00)
--- NOTE | 2018-04-21 10:09 | PD.CARD.PN ---
Subjective Subjective Remarks Intubated Objective Medications Current Medications Medications (Trade) Dose Ordered Sig/Chente Route Start Time Stop Time Status Last Admin ([facility] Information) NEED PATIENT WEIGHT IN ORDER... Q3H .XX 04/20/18 05:00 (Ativan Inj) 1 mg Q1H PRN IV PUSH 04/20/18 04:30 (Demerol Inj) 25 mg Q2H PRN IV PUSH 04/20/18 04:30 Magnesium Sulfate 4 gm/Sodium Chloride 250 ml @ 62.5 mls/hr Q4H PRN IV 04/20/18 04:30 (Lacrilube Opht Oint) 1 applic Q4H PRN EACH EYE 04/20/18 04:30 (NS Flush) 2 ml BID IV FLUSH 04/20/18 09:00 04/20/18 09:00 (NS Flush) 2 ml UNSCH PRN IV FLUSH 04/20/18 04:30 Miscellaneous Information 0 ml @ 0 mls/hr UNSCH IV 04/20/18 04:30 ([facility] Nursing Information) 1 Q361D XX 04/20/18 04:30 (Chlorhexidine 2% Cloth) 3 pack Taper DAILY@04 TOP 04/21/18 04:00 04/17/19 03:59 (Chlorhexidine 2% Cloth) 3 pack UNSCH PRN TOP 04/20/18 04:30 Potassium Chloride 100 ml @ 50 mls/hr Q2H PRN IV 04/20/18 04:30 04/20/18 19:00 Potassium Chloride 100 ml @ 50 mls/hr Q2H PRN IV 04/20/18 04:30 (K-Lyte Cl Eff) 50 meq UNSCH PRN PO 04/20/18 04:30 Potassium Chloride 100 ml @ 25 mls/hr UNSCH PRN IV 04/20/18 04:30 Potassium Chloride 100 ml @ 50 mls/hr Q2H PRN IV 04/20/18 04:30 Magnesium Sulfate 4 gm/Sodium Chloride 100 ml @ 50 mls/hr UNSCH PRN IV 04/20/18 04:30 (Mag-Ox) 800 mg UNSCH PRN PO 04/20/18 04:30 Magnesium Sulfate 2 gm/Sodium Chloride 100 ml @ 50 mls/hr UNSCH PRN IV 04/20/18 04:30 04/21/18 07:29 (K-Phos) 2,000 mg Q4H PRN PO 04/20/18 04:30 Sodium Phosphate 30 mmol/Sodium Chloride 250 ml @ 42 mls/hr UNSCH PRN IV 04/20/18 04:30 (K-Phos) 2,000 mg UNSCH PRN PO/TUBE 04/20/18 04:30 Potassium Phosphate 30 mmol/ Sodium Chloride 260 ml @ 42 mls/hr UNSCH PRN IV 04/20/18 04:30 (Peridex 0.12% Liq) 15 ml BID@08,20 MT 04/20/18 08:00 04/21/18 07:59 (Duoneb Neb) 1 ampule Q6HR NEB INH 04/20/18 10:00 04/21/18 08:27 (Duoneb Neb) 1 ampule Q2HR NEB PRN INH 04/20/18 04:30 Propofol 100 ml @ 2.82 mls/hr TITRATE PRN IV 04/20/18 06:45 04/21/18 05:31 Amiodarone HCl 450 mg/Sodium Chloride 259 ml @ 33.33 mls/ hr Q7H47M PRN IV 04/20/18 06:45 04/20/18 23:00 (Heparin Inj) 5,000 units UNSCH PRN IV PUSH 04/20/18 13:00 (Heparin Inj) 2,500 units UNSCH PRN IV PUSH 04/20/18 13:00 Heparin Sodium (Porcine) 63295 units/Sodium Chloride 250 ml @ 10 mls/hr TITRATE PRN IV 04/20/18 07:00 04/20/18 07:00 Fentanyl Citrate 250 ml @ 5 mls/hr TITRATE PRN IV 04/20/18 07:00 04/20/18 14:01 (Ativan Inj) 1 mg Q1H PRN IV PUSH 04/20/18 07:00 (Buspar) 15 mg BID PRN NG 04/20/18 07:00 (Aspirin Chew) 81 mg DAILY PO 04/21/18 09:00 04/21/18 08:38 (Brilinta) 90 mg BID PO 04/20/18 21:00 04/21/18 08:38 (Lipitor) 40 mg DAILY PO 04/21/18 09:00 04/21/18 08:38 (Pill Splitter) 1 ea UNSCH PRN OTHER 04/20/18 10:30 (Lopressor) 25 mg BID PO 04/20/18 21:00 Nitroglycerin/ Dextrose 250 ml @ 3 mls/hr TITRATE PRN IV 04/20/18 11:30 04/20/18 07:00 (Prinivil) 5 mg DAILY PO 04/21/18 09:00 (Versed Inj) 2 mg Q1H PRN IV 04/20/18 17:30 Cisatracurium Besylate 400 mg/ Sodium Chloride 250 ml @ 11.63 mls/ hr TITRATE PRN IV 04/20/18 23:00 04/20/18 23:00 Norepinephrine Bitartrate 16 mg/ Sodium Chloride 250 ml @ 1.87 mls/hr TITRATE PRN IV 04/20/18 23:00 Vasopressin 160 units/Sodium Chloride 100 ml @ 0.37 mls/hr Q24H PRN IV 04/20/18 23:00 Insulin Human Regular 100 units/ Sodium Chloride 100 ml @ 3 mls/hr TITRATE PRN IV 04/21/18 01:15 04/21/18 03:00 Epoprostenol Sodium 75 ml/ Sodium Chloride 100 ml @ 5 mls/hr Q8H NEB 04/21/18 04:00 04/21/18 04:00 Milrinone Lactate 20 mg/Sodium Chloride 100 ml @ 9.94 mls/hr Q10H4M IV 04/21/18 09:45 04/21/18 09:58 Milrinone Lactate 20 mg/Sodium Chloride 100 ml @ 11.47 mls/ hr Q8H44M IV 04/21/18 09:46 UNV Epinephrine HCl 8 mg/Sodium Chloride 250 ml @ 9.37 mls/hr TITRATE PRN IV 04/21/18 10:00 UNV Isoproterenol HCl 4 mg/Sodium Chloride 250 ml @ 18.75 mls/ hr TITRATE PRN IV 04/21/18 10:00 UNV Vital Signs / I&O Vital Signs Date Time Temp Pulse Resp B/P (MAP) Pulse Ox O2 Delivery O2 Flow Rate FiO2 04/21/18 09:58 113 118/57 04/21/18 09:00 94/61 (82) 04/21/18 09:00 98.6 04/21/18 08:27 99 60 04/21/18 08:00 80/60 (82) 04/21/18 07:00 98.6 04/21/18 07:00 94.0 114 20 120/76 (91) 99 125/54 (77) 04/21/18 07:00 60 04/21/18 07:00 110 04/21/18 07:00 99 Mechanical Ventilator 60 04/21/18 07:00 87/58 (81) 04/21/18 06:00 111 118/50 (72) 114/50 (71) 04/21/18 06:00 04/21/18 05:00 04/21/18 04:00 98 60 04/21/18 04:00 04/21/18 03:00 92 Mechanical Ventilator 60 04/21/18 03:00 119 04/21/18 03:00 04/21/18 03:00 93.5 119 20 122/56 (78) 94 04/21/18 03:00 60 04/21/18 02:00 04/21/18 01:00 04/21/18 00:50 98 80 04/21/18 00:00 80 04/21/18 00:00 04/20/18 23:00 109 04/20/18 23:00 93.5 110 24 130/55 (80) 96 04/20/18 23:00 99 Mechanical Ventilator 80 04/20/18 23:00 04/20/18 23:00 110 130/55 04/20/18 23:00 110 130/55 04/20/18 23:00 110 130/55 04/20/18 23:00 100 04/20/18 22:28 96 80 04/20/18 22:00 04/20/18 21:00 04/20/18 21:00 98 Mechanical Ventilator 80 04/20/18 21:00 111 133/58 04/20/18 20:35 96 100 04/20/18 20:00 04/20/18 20:00 94 98/72 04/20/18 20:00 110 128/55 04/20/18 19:15 92 04/20/18 19:15 93.5 94 24 130/58 (82) 98 04/20/18 19:15 98 Mechanical Ventilator 100 04/20/18 19:15 04/20/18 19:00 100 5/30/18 19:00 111 130/56 04/20/18 19:00 98 78/72 04/20/18 18:25 87/64 (88) 04/20/18 17:40 84/60 (84) 04/20/18 16:40 96 100 04/20/18 16:38 98 94/42 04/20/18 16:00 83/60 (82) 04/20/18 15:00 102/71 (99) 04/20/18 15:00 96 Mechanical Ventilator 100 04/20/18 15:00 93.0 112 24 126/86 (99) 96 145/60 (88) 04/20/18 15:00 100 04/20/18 15:00 114 04/20/18 14:00 83/66 (82) 04/20/18 14:00 105 110/48 04/20/18 13:00 74 100 04/20/18 13:00 80/65 (81) 04/20/18 12:53 96 100 04/20/18 12:25 69 86/36 04/20/18 12:00 85/59 (57) 04/20/18 12:00 73 105/48 04/20/18 11:00 100 04/20/18 11:00 99 Mechanical Ventilator 100 04/20/18 11:00 101 04/20/18 11:00 120/90 (123) 04/20/18 11:00 95.7 114 24 123/113 (116) 99 168/90 (116) 04/20/18 10:31 98 100 I/O 04/20/18 04/20/18 04/20/18 04/21/18 04/21/18 04/21/18 07:00 15:00 23:00 07:00 15:00 23:00 Intake Total 300 ml 500 ml 2382 ml Output Total 670 ml 2900 ml Balance 300 ml -170 ml -518 ml Intake Oral 0 ml IV Total 300 ml 500 ml 2382 ml Output Urine Total 670 ml 2750 ml Gastric Drainage Total 0 ml 150 ml # Bowel Movements 3 1 Physical Exam Sedated, on hypothermia Long discussion with Dr. Javi Wilson numbers noted Chest clear anteriorly (mild congestion on CXR) CV [id number] RRR, no MR Abd soft Ext: right groin OK, perfusion OK Laboratory Laboratory Tests Test 04/20/18 11:00 04/20/18 12:45 04/20/18 12:54 04/20/18 13:17 White Blood Count 19.4 TH/MM3 22.5 TH/MM3 Red Blood Count 5.10 MIL/MM3 4.89 MIL/MM3 Hemoglobin 14.9 GM/DL 14.4 GM/DL Hematocrit 44.7 % 43.4 % Mean Corpuscular Volume 87.6 FL 88.9 FL Mean Corpuscular Hemoglobin 29.2 PG 29.4 PG Mean Corpuscular Hemoglobin Concent 33.4 % 33.1 % Red Cell Distribution Width 13.8 % 14.0 % Platelet Count 284 TH/MM3 247 TH/MM3 Mean Platelet Volume 8.0 FL 8.1 FL Activated Partial Thromboplast Time 80.9 SEC 65.5 SEC Blood Urea Nitrogen 13 MG/DL 14 MG/DL Creatinine 0.81 MG/DL 1.01 MG/DL Random Glucose 216 MG/DL 257 MG/DL Total Protein 6.0 GM/DL 4.7 GM/DL Calcium Level 7.1 MG/DL 9.6 MG/DL Magnesium Level 1.9 MG/DL 4.3 MG/DL Sodium Level 145 MEQ/L 155 MEQ/L Potassium Level 4.0 MEQ/L 3.9 MEQ/L Chloride Level 111 MEQ/L 113 MEQ/L Carbon Dioxide Level 20.3 MEQ/L 30.4 MEQ/L Anion Gap 14 MEQ/L 12 MEQ/L Estimat Glomerular Filtration Rate 61 ML/MIN 59 ML/MIN Protein Corrected Calcium 7.7 MG/DL Total Creatine Kinase 1073 U/L Creatine Kinase MB 81.4 NG/ML Creatine Kinase MB % 7.6 % Blood Gas Puncture Site ART LINE Blood Gas Patient Temperature 98.6 Blood Gas HCO3 31 mmol/L Blood Gas Base Excess 7.0 mmol/L Blood Gas Oxygen Saturation 93 % Arterial Blood pH 7.44 Arterial Blood Partial Pressure CO2 47 mmHg Arterial Blood Partial Pressure O2 79 mmHg Arterial Blood Oxygen Content 19.6 Vol % Arterial Blood Carboxyhemoglobin 0.6 % Arterial Blood Methemoglobin 1.3 % Blood Gas Hemoglobin 15.0 G/DL Oxygen Delivery Device AMBU Blood Gas Liter Flow 15 L/M Blood Gas Inspired Oxygen 100 % Albumin 2.2 GM/DL Phosphorus Level 2.1 MG/DL Alkaline Phosphatase 76 U/L Aspartate Amino Transf (AST/SGOT) 132 U/L Alanine Aminotransferase (ALT/SGPT) 64 U/L Total Bilirubin 0.4 MG/DL Lactic Acid Level 7.4 mmol/L Troponin I 9.85 NG/ML Test 04/20/18 14:25 04/20/18 18:20 04/20/18 18:22 04/21/18 04:25 Blood Gas Puncture Site ART LINE Blood Gas Patient Temperature 98.6 Blood Gas HCO3 19 mmol/L Blood Gas Base Excess -6.6 mmol/L Blood Gas Oxygen Saturation 86 % Arterial Blood pH 7.30 Arterial Blood Partial Pressure CO2 39 mmHg Arterial Blood Partial Pressure O2 65 mmHg Arterial Blood Oxygen Content 18.4 Vol % Arterial Blood Carboxyhemoglobin 0.3 % Arterial Blood Methemoglobin 1.3 % Blood Gas Hemoglobin 15.2 G/DL Oxygen Delivery Device VENTILATOR Blood Gas Ventilator Setting PC/AC Blood Gas Inspired Oxygen 100 % Lactic Acid Level 8.4 mmol/L 4.2 mmol/L Blood Urea Nitrogen 17 MG/DL 12 MG/DL Creatinine 1.30 MG/DL 0.79 MG/DL Random Glucose 328 MG/DL 99 MG/DL Calcium Level 7.7 MG/DL 7.9 MG/DL Magnesium Level 2.5 MG/DL 1.6 MG/DL Sodium Level 147 MEQ/L 149 MEQ/L Potassium Level 2.9 MEQ/L 2.7 MEQ/L Chloride Level 113 MEQ/L 113 MEQ/L Carbon Dioxide Level 17.7 MEQ/L 23.6 MEQ/L Anion Gap 16 MEQ/L 12 MEQ/L Estimat Glomerular Filtration Rate 44 ML/MIN 78 ML/MIN Troponin I 13.90 NG/ML 15.00 NG/ML Triglycerides Level 97 MG/DL Cholesterol Level 113 MG/DL LDL Cholesterol 45 MG/DL HDL Cholesterol 48.7 MG/DL Cholesterol/HDL Ratio 2.32 RATIO White Blood Count 24.5 TH/MM3 Red Blood Count 5.37 MIL/MM3 Hemoglobin 15.8 GM/DL Hematocrit 46.7 % Mean Corpuscular Volume 86.9 FL Mean Corpuscular Hemoglobin 29.4 PG Mean Corpuscular Hemoglobin Concent 33.8 % Red Cell Distribution Width 14.1 % Platelet Count 240 TH/MM3 Mean Platelet Volume 8.1 FL Neutrophils (%) (Auto) 85.5 % Lymphocytes (%) (Auto) 7.8 % Monocytes (%) (Auto) 6.3 % Eosinophils (%) (Auto) 0.0 % Basophils (%) (Auto) 0.4 % Neutrophils # (Auto) 20.9 TH/MM3 Lymphocytes # (Auto) 1.9 TH/MM3 Monocytes # (Auto) 1.5 TH/MM3 Eosinophils # (Auto) 0.0 TH/MM3 Basophils # (Auto) 0.1 TH/MM3 CBC Comment AUTO DIFF Differential Comment AUTO DIFF CONFIRMED Activated Partial Thromboplast Time 134.7 SEC Total Creatine Kinase 2098 U/L Creatine Kinase MB 279.9 NG/ML Creatine Kinase MB % 13.3 % Test 04/21/18 07:25 Activated Partial Thromboplast Time 60.9 SEC Imaging Last [address] 04/20/18 0430 Signed Impressions: CONCLUSION: Unremarkable study. Chest X-Ray 04/20/18 0345 Signed Impressions: CONCLUSION: No acute cardiopulmonary disease. Chest X-Ray 04/20/18 0000 Signed Impressions: CONCLUSION: 1. Stable ETT and NGT. 2. Right IJ pulmonary artery catheter with tip in the proximal right main pulm onary artery. No pneumothorax. 3. Significantly improved pulmonary edema pattern. Chest X-Ray 04/20/18 0000 Signed Impressions: CONCLUSION: Moderate interstitial edema with normal heart size consistent with cardiac arre st. No pneumothorax. Assessment and Plan Problem List: (1) Hypokalemia ICD Codes: E87.6 - Hypokalemia (2) Hypoxic encephalopathy ICD Codes: G93.1 - Anoxic brain damage, not elsewhere classified (3) Cardiogenic shock ICD Codes: R57.0 - Cardiogenic shock Plan: Continued inotropic/pressor support. Still critical. Milrinone trial. IABP at 1:1 (4) Anterior wall myocardial infarction ICD Codes: I21.09 - ST elevation (STEMI) myocardial infarction involving other coronary artery of anterior wall (5) Stented coronary artery ICD Codes: Z95.5 - Presence of coronary angioplasty implant and graft Plan: cont ASA/ Serafin An MD April 21, 2018 10:09
[2018-04-21] MEDS: HEPARIN INJ 25,000 UNITS in SODIUM CHLOR 0.9% 250 ML INJ 247.5 ML IV PRN (11:47)
[2018-04-21] MEDS: AMIODARONE INJ 450 MG in SODIUM CHLOR 0.9% (EXCEL) INJ 250 ML IV PRN (11:49)
[2018-04-21] MEDS: POTASSIUM CHLOR 20 MEQ PREMIX 100 ML IV SCH ×3 (11:51→15:19)
[2018-04-21] MEDS ORDERED: FUROSEMIDE 20 MG/2 ML VIAL IV PUSH ONE ×2 (19:30)
[2018-04-21] MEDS: SODIUM CHLOR 0.9% IV PRN (20:34)
[2018-04-21] MEDS: CISATRACURIUM IV PRN (20:34)
[2018-04-22] VITALS (18 sets, daily range): BP systolic 90–119; BP diastolic 48–79; PULSE 81–139; RESP 18–20; TEMP 98.2–98.8; O2SAT 93–99
[2018-04-22] MEDS: PROPOFOL 1000 MG/100 ML INJ 100 ML IV PRN ×4 (03:00→23:46)
[2018-04-22] MEDS: MILRINONE INJ 20 MG in SODIUM CHLORIDE 0.9% INJ 80 ML IV SCH ×3 (03:14→20:45)
[2018-04-22 03:50] LABS: HEMATOCRIT 38.9 % (35.0-46.0); HEMOGLOBIN 13.3 GM/DL (11.6-15.3); MEAN CORPUSCULAR HEMOGLOBIN 29.7 PG (27.0-34.0); MEAN CORPUSCULAR HGB CONC 34.1 % (32.0-36.0); MEAN PLATELET VOLUME 8.7 FL (7.0-11.0); PLATELET COUNT 173 TH/MM3 (150-450); RED BLOOD COUNT 4.47 MIL/MM3 (4.00-5.30); RED CELL DISTRIBUTION WIDTH 14.5 % (11.6-17.2); WHITE BLOOD COUNT 33.1 TH/MM3 (4.0-11.0)
[2018-04-22 03:57] LABS: INTERNATIONAL NORMALIZED RATIO 1.3 RATIO; PROTHROMBIN TIME - PATIENT 13.3 SEC (9.8-11.6)
[2018-04-22] MEDS: CHLORHEXIDINE GLUCONATE 2 % 1 PACK (2 CLOTHS) TOP SCH (04:00)
[2018-04-22] MEDS: RESP: ALBUTEROL 2.5 MG/IPRATROPIUM 0.5 MG NEB (SCH) INH ×4 (04:11→20:53)
[2018-04-22 04:15] LABS: BICARBONATE 26.1 MEQ/L (21.0-32.0); CALCIUM 8.3 MG/DL (8.5-10.1); CREATININE 0.69 MG/DL (0.50-1.00)
[2018-04-22] MEDS ORDERED: ALBUMIN 5% INJ 500 ML IV ONE (04:45)
[2018-04-22 05:00] LABS: TROPONIN I 13.2 NG/ML (0.02-0.05)
[2018-04-22] MEDS: ISOPROTERENOL IV PRN (05:13)
[2018-04-22] MEDS: SODIUM CHLOR 0.9% IV PRN (05:13)
[2018-04-22] MEDS ORDERED: DOBUTamine PREMIX DRIP 250 ML IV PRN (07:00)
[2018-04-22] MEDS: fentaNYL DRIP 250 ML IV PRN ×2 (07:02→23:45)
[2018-04-22] MEDS ORDERED: DEXMEDETOMIDINE INJ 200 MCG in SODIUM CHLORIDE 0.9% INJ 50 ML IV PRN (07:15)
[2018-04-22] MEDS ORDERED: SODIUM CHLOR 0.9% IV PRN (07:30)
[2018-04-22] MEDS ORDERED: DOBUTAMINE IV PRN (07:30)
[2018-04-22] MEDS: CHLORHEXIDINE 0.12% (ORAL KIT) 15 ML CUP MT SCH ×2 (08:00→20:40)
--- NOTE | 2018-04-22 08:26 | HHI.CCPN ---
Subjective Remarks/Hospital Course Hospital Course: This is a 47yF with history of 2ppd tobacco use who presented on 04/18 with complaints of chest pain radiating to the back. she was diagnosed at that time with atypical chest pain and GERD and sent home with azithromycin, ciprofloxacin , famotidine, and omeprazole. Tonight, she again complained to her daughter of crushing substernal chest pain. EMS was called, but the patient collapsed. presenting rhythm was V. Fib. patient was defibrillated initially x 1 with ROSC but decompensated into v. fib again requiring multiple rounds of epi and defibrillation before ROSC was obtained. Per ER physician, she was ? following commands post arrest, but then had seizure-like activity and was given iv ativan. On my arrival to the ER, she has briskly reactive pupils, + cough, + gag. RUE is ?purposeful and questionably crossing midline. LUE appears to be extensor posturing. EKG post ROSC by EMS shows ST elevations in the precordial leads, but EKG on arrival to ED does not demonstrate ST elevations. bedside critical care echo demonstrates what appears to be anteroseptal hypokinesis which is regional. labs remarkable for trop 0.08. no additional information available from patient due to her clinical condition. ROS unobtainable. I discussed the case with Dr. Bello as well as Dr. Lynn. Dr. Lynn would like to stabilize the patient and take her urgently for [facility]. We both agree she is a good post-arrest induced hypothermia candidate, but until intervention is performed, will anticipate targeted temperature therapy targeting 36 degrees Celsius to mitigate any bleeding concerns. Patient taken to left heart cath today with large LAD thrombus which was successfully stented with good angiographic result. Patient is left coronary dominant. Post left heart cath, patient's EF by ventriculogram was 10% and patient was in cardiogenic shock. Intra-arterial balloon pump was placed. Patient was taken back to the CVICU. Patient had 2 more episodes of V. fib cardiac arrest which were successfully different related back into sinus rhythm. Despite maximal efforts, patient remains in florid cardiogenic shock with a lactate greater than 8 and significant multiorgan failure. I evaluated the patient at around 1830. She is mottled and poorly perfused. ScVo2 via central line is 30% despite IABP at 1-1. I had a long discussion with Dr. Bello who consulted with Dr. Lynn: They both feel that the patient's vascular anatomy is not amenable to placement of percutaneous left ventricular assist device, and mechanically we have nothing additional to offer the patient except for intra-arterial balloon pump. I long conversation with the family where I conveyed how critically ill she was and her poor prognosis if her ventricular function did not improve. I placed right IJ introducer sheath and PA catheter to monitor continuous cardiac output and filling pressures (see separate procedure note for details and hemodynamic data). By [place] she has a mixed venous sat of 58% and a cardiac index of 1.2. I started isoproterenol at 5 mcg/min and added vasopressin 0.04 U/min. She is already on Levophed at 30 mcg/min and epinephrine at 10 mcg/min. Lactate continues to up trend. She is severely hypokalemic with a potassium of 1.9 and acidotic with a pH of 7.19. Subjective: 04/21: remains critically ill in shock. lactate clearing to 3.3 from peak of 8. uop adequate. remains on IABP 1:1, isuprel at 8 mcg/min, epi at 5 mcg/min. intermittent cleviprex to keep sbp 110 - 130. remains hypothermic. PCWP 20 this AM. CI 1.5 despite high-dose inotropes. 04/22: awakens and follows commands. neuro intact. remains in shock. on epi at 3 mcg/min, off isuprel. milrinone at 0.375 mcg/kg/min. cardiac index has improved to 3.7. filling pressures remain stable. warm at 3am. somewhat agitated despite fentanyl, propofol. Objective Vital Signs Date Time Temp Pulse Resp B/P (MAP) Pulse Ox O2 Delivery O2 Flow Rate FiO2 04/22/18 07:34 95 40 04/22/18 06:00 91/55 (78) 04/22/18 06:00 128 04/22/18 03:00 Mechanical Ventilator 04/22/18 03:00 98.2 20 04/20/18 03:40 15.00 Intake and Output 04/22/18 04/22/18 04/23/18 08:00 16:00 00:00 Intake Total 1749.5 ml Output Total 950 ml Balance 799.5 ml Result Diagram: 04/22/1831404/22/18314 Imaging Last Impressions Head CT 04/20/18 043 Signed Impressions: CONCLUSION: Unremarkable study. Chest X-Ray 04/20/18344 Signed Impressions: CONCLUSION: No acute cardiopulmonary disease. Objective Remarks GENERAL: Middle-aged appearing female, lying in bed, intubated HEENT: Normocephalic. Atraumatic. Pupils 4 mm, equal, round, briskly reactive , conjugate. Mucous membranes are moist NECK: Trachea is midline. There is no JVD. right IJ introducer sheath and pa catheter in place, sites clean/dry/intact. CHEST: Equal chest rise. PC/AC 20/10, rate 18. fio2 50%. CARDIOVASCULAR: Tachycardic rate, regular rhythm. Sinus. ABDOMEN: Soft, nontender, nondistended. No guarding. MUSCULOSKELETAL: Pulses 2+. No peripheral edema. right groin IABP site c/d/i. left femoral cooling catheter site c/d/i. NEUROLOGICAL: RASS -2. awakens and follows commands x 4. moves all extremities spontaneously. no focal deficits. A/P Assessment and Plan Assessment: 47-year-old female with acute myocardial infarction s/p [facility] with PCI to the LAD with persistent cardiogenic shock and associated multiorgan failure. neurologic improvement is a very good sign overall. rewarmed as of 0300 on 04/22. unclear if she will continue to have ventricular recovery or not given large size of infarct. she would be a good mechanical support candidate if she did not have return of ventricular function. Will repeat 2d echo today to better evaluate function. will keep IABP today, likely wean to 1:2 if tolerated. continue to wean epi as tolerated. remains very critically ill in shock. Plan by systems: Neurologic: Hypoxic ischemic encephalopathy- resolving. Frequent neurochecks EEG 04/20: generalized slowing, burst suppression, no ictal activity Propofol, fentanyl for goal RASS -2 will add precedex for agitation. Avoid long-acting sedatives s/p therapeutic hypothermia, target 34 degrees Celsius, rewarmed 0300 on 04/22 Respiratory: Acute hypoxic and hypercarbic respiratory failure Acute cardiogenic pulmonary edema Vent bundle Head of bed elevated Nebs Wean FiO2 for goal SPO2 greater than 90% No SBT today while in shock PEEP at 10 Cardiovascular: Acute non-ST elevation myocardial infarction Out of hospital ventricular fibrillation cardiac arrest s/p [facility] with PCI to LAD 04/20 Cardiogenic Shock- persistent Ischemic Cardiomyopathy, acute EF < 20% Acute pulmonary hypertension Heparin drip IABP, decrease to 1:2 today d/c isuprel start dobutamine at 5 mcg/kg/min wean epinephrine to off if tolerated continue milrinone at 0.375 mcg/kg/min vasopressin for goal map > 65 mmHg, augmented mean > 90 continue inhaled flolan for RV dysfunction and pulmonary hypertension (3.2 [place] units on RHC) Aspirin daily Cardiology consult: Dr. Bello continue Amiodarone drip at 0.5 mg/min. trend lactates, uop, svo2 keep PA catheter today Renal: Acute kidney injury- resolving. Likely secondary to poor perfusion from cardiac injury Daily BMP Temp sensing Ordonez -- Strict I/Os FEN/GI: Lactic acidosis- resolving. ICU electrolyte protocol N.p.o. while in shock Place orogastric tube to suction saline lock ivf. Heme/ID: Leukocytosis send sputum, blood, urine cultures. start unasyn for presumed aspiration pneumonia, community acquired. check CXR daily CBC. Endocrine: Hyperglycemia of critical illness --transition to SSI q6h. Prophylaxis: GI Prophylaxis Pepcid DVT Prophylaxis -- SCDs Heparin drip Lines: 04/20 left femoral cooling catheter: will keep for an additional 24h to prevent rebound hyperthermia. 04/20 right radial arterial line 04/20 [place] 04/20 right IJ introducer sheath 04/20 right IJ PA catheter 04/20 right femoral IABP Dispo: remain in ICU. remains critically ill. This patient remains critically ill with one or more organ systems which are or may become a threat to life. I have spent in excess of 41 minutes discontinuously in the care and management of this patient. This time is exclusive of procedures, and includes, but is not limited to, evaluation of the patient, review of the medical record, discussions with family, consultants, nursing staff, or respiratory therapy, and documentation in the medical record. Fernando Caldwell MD Apr 22, 2018 08:26
[2018-04-22] MEDS ORDERED: DEXTROSE 50% IN WATER 50 ML VIAL(D50) IV PUSH PRN (08:30)
[2018-04-22] MEDS: AMIODARONE INJ 450 MG in SODIUM CHLOR 0.9% (EXCEL) INJ 250 ML IV PRN (08:31)
[2018-04-22] MEDS: SODIUM CHLORIDE 0.9% IV PRN (08:34)
[2018-04-22] MEDS: EPOPROSTENOL NEB SOLUTION 50 NG/KG/MIN 100 ML NEB SCH ×4 (08:34→13:49)
[2018-04-22] MEDS: VASOPRESSIN IV PRN (08:34)
--- NOTE | 2018-04-22 08:41 | EKG ---
Date Performed: 04/20/2018 Time Performed: 13:00:28 PTAGE: 47 years EKG: Atrial fibrillation. Possible faulty V2 - omitted from analysis Leftward axis IV conduction defect Consider Inferior infarct - age undetermined Anterolateral ST-T changes may be due to myocard ial ischemia Generalized low QRS voltages Abnormal ECG PREVIOUS TRACING : 04/20/2018 04.43 DOCTOR: Sylvester Palacios Interpretating Date/Time 04/22/2018 08:39:07
[2018-04-22 09:00] LABS: BACTERIA, URINE FEW /hpf; BILIRUBIN, URINE NEG (NEG); BLOOD, URINE LARGE (NEG); GLUCOSE,URINE NEG (NEG); HYALINE CAST, URINE 5 /lpf (RARE); KETONE, URINE 10 mg/dL (NEG); NITRITE,URINE NEG (NEG); RENAL EPITHELIAL CELLS <1 /hpf; SQUAMOUS EPITHELIAL CELL URINE 15 /hpf (0-5); TRANSITIONAL EPI CELLS, URINE 1 /hpf; URINE COLOR YELLOW (YELLW/STRAW); URINE LEUKOCYTE ESTERASE MOD (NEG)
[2018-04-22] MEDS: SODIUM CHLORIDE 0.9% FLUSH 10 ML FLUSH IV FLUSH SCH ×2 (09:00→20:41)
[2018-04-22] MEDS: ASPIRIN 81 MG CHEW TAB PO SCH (09:26)
[2018-04-22] MEDS: TICAGRELOR 90 MG TAB PO SCH ×2 (09:26→20:40)
[2018-04-22] MEDS: ATORVASTATIN 40 MG TAB PO SCH (09:26)
[2018-04-22] MEDS: AMPICILLIN-SULBACTAM INJ 3 GM in SODIUM CHLORIDE 0.9% INJ 100 ML IV SCH ×3 (09:28→20:42)
[2018-04-22] MEDS ORDERED: FUROSEMIDE 40 MG/4 ML VIAL ONE (09:36)
[2018-04-22] MEDS ORDERED: HYDROmorphone HCL PF 0.5 MG/0.5 ML SYRINGE IV PUSH PRN (09:45)
[2018-04-22] MEDS ORDERED: FUROSEMIDE 20 MG/2 ML VIAL IV PUSH ONE ×2 (09:45→13:45)
[2018-04-22] MEDS: OLANZapine ODT 5 MG TAB PO SCH ×3 (10:03→20:40)
--- NOTE | 2018-04-22 10:03 | PD.CARD.PN ---
Subjective Subjective Remarks Intubated Objective Medications Current Medications Medications (Trade) Dose Ordered Sig/Chente Route Start Time Stop Time Status Last Admin ([facility] [place]) NEED PATIENT WEIGHT IN ORDER... Q3H .XX 04/20/18 05:00 (Demerol Inj) 25 mg Q2H PRN IV PUSH 04/20/18 04:30 Magnesium Sulfate 4 gm/Sodium Chloride 250 ml @ 62.5 mls/hr Q4H PRN IV 04/20/18 04:30 (Lacrilube Opht Oint) 1 applic Q4H PRN EACH EYE 04/20/18 04:30 (NS Flush) 2 ml BID IV FLUSH 04/20/18 09:00 04/21/18 20:29 (NS Flush) 2 ml UNSCH PRN IV FLUSH 04/20/18 04:30 Miscellaneous Information 0 ml @ 0 mls/hr UNSCH IV 04/20/18 04:30 ([facility] [place] [facility] Information) 1 Q361D XX 04/20/18 04:30 (Chlorhexidine 2% Cloth) 3 pack Taper DAILY@04 TOP 04/21/18 04:00 04/17/19 03:59 (Chlorhexidine 2% Cloth) 3 pack UNSCH PRN TOP 04/20/18 04:30 Potassium Chloride 100 ml @ 50 mls/hr Q2H PRN IV 04/20/18 04:30 04/20/18 19:00 Potassium Chloride 100 ml @ 50 mls/hr Q2H PRN IV 04/20/18 04:30 (K-Lyte Cl Eff) 50 meq UNSCH PRN PO 04/20/18 04:30 Potassium Chloride 100 ml @ 25 mls/hr UNSCH PRN IV 04/20/18 04:30 Potassium Chloride 100 ml @ 50 mls/hr Q2H PRN IV 04/20/18 04:30 Magnesium Sulfate 4 gm/Sodium Chloride 100 ml @ 50 mls/hr UNSCH PRN IV 04/20/18 04:30 (Mag-Ox) 800 mg UNSCH PRN PO 04/20/18 04:30 Magnesium Sulfate 2 gm/Sodium Chloride 100 ml @ 50 mls/hr UNSCH PRN IV 04/20/18 04:30 04/21/18 07:29 (K-Phos) 2,000 mg Q4H PRN PO 04/20/18 04:30 Sodium Phosphate 30 mmol/Sodium Chloride 250 ml @ 42 mls/hr UNSCH PRN IV 04/20/18 04:30 (K-Phos) 2,000 mg UNSCH PRN PO/TUBE 04/20/18 04:30 Potassium Phosphate 30 mmol/ Sodium Chloride 260 ml @ 42 mls/hr UNSCH PRN IV 04/20/18 04:30 (Peridex 0.12% Liq) 15 ml BID@08,20 MT 04/20/18 08:00 04/21/18 20:29 (Duoneb Neb) 1 ampule Q6HR NEB INH 04/20/18 10:00 04/22/18 04:11 (Duoneb Neb) 1 ampule Q2HR NEB PRN INH 04/20/18 04:30 Propofol 100 ml @ 2.82 mls/hr TITRATE PRN IV 04/20/18 06:45 04/22/18 03:00 Amiodarone HCl 450 mg/Sodium Chloride 259 ml @ 33.33 mls/ hr Q7H47M PRN IV 04/20/18 06:45 04/22/18 08:31 (Heparin Inj) 5,000 units UNSCH PRN IV PUSH 04/20/18 13:00 (Heparin Inj) 2,500 units UNSCH PRN IV PUSH 04/20/18 13:00 Heparin Sodium (Porcine) 88100 units/Sodium Chloride 250 ml @ 10 mls/hr TITRATE PRN IV 04/20/18 07:00 04/21/18 11:47 Fentanyl Citrate 250 ml @ 5 mls/hr TITRATE PRN IV 04/20/18 07:00 04/22/18 07:02 (Aspirin Chew) 81 mg DAILY PO 04/21/18 09:00 04/22/18 09:26 (Brilinta) 90 mg BID PO 04/20/18 21:00 04/22/18 09:26 (Lipitor) 40 mg DAILY PO 04/21/18 09:00 04/22/18 09:26 (Pill Splitter) 1 ea UNSCH PRN OTHER 04/20/18 10:30 Norepinephrine Bitartrate 16 mg/ Sodium Chloride 250 ml @ 1.87 mls/hr TITRATE PRN IV 04/20/18 23:00 Vasopressin 160 units/Sodium Chloride 100 ml @ 0.37 mls/hr Q24H PRN IV 04/20/18 23:00 04/22/18 08:34 Epoprostenol Sodium 75 ml/ Sodium Chloride 100 ml @ 5 mls/hr Q8H NEB 04/21/18 04:00 04/22/18 08:34 Milrinone Lactate 20 mg/Sodium Chloride 100 ml @ 11.47 mls/ hr Q8H44M IV 04/21/18 09:46 04/22/18 03:14 Epinephrine HCl 8 mg/Sodium Chloride 250 ml @ 9.37 mls/hr TITRATE PRN IV 04/21/18 10:00 Ampicillin Sodium/ Sulbactam Sodium 3 gm/Sodium Chloride 100 ml @ 200 mls/hr Q6H IV 04/22/18 09:00 04/22/18 09:28 (D50w (Vial) Inj) 25 ml UNSCH PRN IV PUSH 04/22/18 08:30 (NovoLIN R SUPPLEMENTAL SCALE) 1 Q6HR SQ 04/22/18 12:00 (ZyPREXA ZYDIS ODT) 5 mg Q8HR PO 04/22/18 09:45 (Roxicodone Intensol Liq) 10 mg Q4H PO 04/22/18 09:45 (Dilaudid Pf Inj) 0.5 mg Q1H PRN IV PUSH 04/22/18 09:45 Dobutamine HCl 250 mg/Sodium Chloride 270 ml @ 32.07 mls/ hr Q8H26M PRN IV 04/23/18 07:30 UNV Vital Signs / I&O Vital Signs Date Time Temp Pulse Resp B/P (MAP) Pulse Ox O2 Delivery O2 Flow Rate FiO2 04/22/18 08:34 122 100/50 04/22/18 08:31 122 107/53 04/22/18 07:34 95 40 04/22/18 06:00 91/55 (78) 04/22/18 06:00 128 106/60 (75) 111/54 (73) 04/22/18 05:13 129/61 04/22/18 04:11 97 60 04/22/18 04:00 110/69 (96) 04/22/18 03:14 119/60 04/22/18 03:00 60 04/22/18 03:00 80/50 (96) 04/22/18 03:00 95 Mechanical Ventilator 60 04/22/18 03:00 139 04/22/18 03:00 98.2 137 20 100/53 (69) 96 90/48 (62) 04/22/18 02:01 97 60 04/22/18 02:00 90/58 (76) 04/22/18 01:00 88/55 (80) 04/22/18 00:00 83/52 (75) 04/22/18 00:00 99 60 04/21/18 23:00 60 04/21/18 23:00 96.4 109 20 98/60 (73) 91 112/50 (70) 04/21/18 23:00 111 04/21/18 23:00 96 Mechanical Ventilator 60 04/21/18 23:00 88/57 (82) 04/21/18 22:00 84/54 (79) 04/21/18 21:00 92/62 (86) 04/21/18 20:00 60 04/21/18 20:00 89/60 (84) 04/21/18 20:00 96 Mechanical Ventilator 60 04/21/18 19:56 96 60 04/21/18 19:00 95.2 111 20 100/70 (80) 95 126/55 (78) 04/21/18 19:00 103 04/21/18 19:00 90/60 (85) 04/21/18 18:15 77/61 (82) 04/21/18 16:39 111 137/58 04/21/18 16:00 91/57 (83) 04/21/18 15:56 95 50 04/21/18 15:15 92 Mechanical Ventilator 50 04/21/18 15:00 85/ (88) 04/21/18 15:00 50 04/21/18 15:00 94.0 20 20 111/54 (73) 92 121/55 (77) 04/21/18 15:00 108 04/21/18 14:00 75/57 (78) 04/21/18 13:11 95 50 04/21/18 13:00 73/55 (72) 04/21/18 12:00 66/51 (65) 04/21/18 11:49 117 97/46 04/21/18 11:00 94.0 119 20 100/64 (76) 95 97/45 (62) 04/21/18 11:00 121 04/21/18 11:00 60 04/21/18 11:00 Mechanical Ventilator 50 04/21/18 11:00 68/50 (66) 04/21/18 10:49 96 50 I/O 04/21/18 04/21/18 04/21/18 04/22/18 04/22/18 04/22/18 07:00 15:00 23:00 07:00 15:00 23:00 Intake Total 2382 ml 154 ml 2019 ml 1749.5 ml Output Total 2900 ml 2800 ml 950 ml Balance -518 ml 154 ml -781 ml 799.5 ml IV Total 2382 ml 154 ml 2019 ml 1589.5 ml Tube Irrigant 160 ml Output Urine Total 2750 ml 2750 ml 700 ml Gastric Drainage Total 150 ml 50 ml 250 ml # Bowel Movements 1 Physical Exam responding to commands, squirming Discussion with Dr. Caldwell Cardiac index 3.5 - off epi drip (on dubutamine and milrinone Chest clear anteriorly CV S1S2S3 RRR, no MR Abd soft Ext: right groin OK, perfusion OK Laboratory Laboratory Tests Test 04/21/18 13:45 04/21/18 20:15 04/21/18 20:30 04/22/18 03:15 Activated Partial Thromboplast Time 48.8 SEC 44.3 SEC 35.2 SEC Lactic Acid Level 1.6 mmol/L 1.7 mmol/L Troponin I 12.70 NG/ML 13.20 NG/ML White Blood Count 33.1 TH/MM3 Red Blood Count 4.47 MIL/MM3 Hemoglobin 13.3 GM/DL Hematocrit 38.9 % Mean Corpuscular Volume 87.0 FL Mean Corpuscular Hemoglobin 29.7 PG Mean Corpuscular Hemoglobin Concent 34.1 % Red Cell Distribution Width 14.5 % Platelet Count 173 TH/MM3 Mean Platelet Volume 8.7 FL Prothrombin Time 13.3 SEC Prothromb Time International Ratio 1.3 RATIO Blood Urea Nitrogen 15 MG/DL Creatinine 0.69 MG/DL Random Glucose 105 MG/DL Calcium Level 8.3 MG/DL Sodium Level 149 MEQ/L Potassium Level 4.6 MEQ/L Chloride Level 111 MEQ/L Carbon Dioxide Level 26.1 MEQ/L Anion Gap 12 MEQ/L Estimat Glomerular Filtration Rate 91 ML/MIN Test 04/22/18 08:08 04/22/18 08:45 Urine Color YELLOW Urine Turbidity HAZY Urine pH 6.0 Urine Specific [place] 1.024 Urine Protein 30 mg/dL Urine Glucose (UA) NEG mg/dL Urine Ketones 10 mg/dL Urine Occult Blood LARGE Urine Nitrite NEG Urine Bilirubin NEG Urine Urobilinogen LESS THAN 2.0 MG/DL Urine Leukocyte Esterase MOD Urine RBC 21 /hpf Urine WBC 13 /hpf Urine Squamous Epithelial Cells 15 /hpf Urine Transitional Epithelial Cells 1 /hpf Urine Renal Epithelial Cells <1 /hpf Urine Bacteria FEW /hpf Urine Hyaline Casts 5 /lpf Microscopic Urinalysis Comment CATH-CULTURE IND Activated Partial Thromboplast Time 35.5 SEC Assessment and Plan Problem List: (1) Cardiogenic shock ICD Codes: R57.0 - Cardiogenic shock (2) Anterior wall myocardial infarction ICD Codes: I21.09 - ST elevation (STEMI) myocardial infarction involving other coronary artery of anterior wall (3) Stented coronary artery ICD Codes: Z95.5 - Presence of coronary angioplasty implant and graft Assessment and Plan Hemodynamicall improved. Serafin Bello MD Apr 22, 2018 10:03
[2018-04-22] MEDS: oxyCODONE HCL ORAL CONC 5 MG/0.25 ML SYRINGE PO SCH ×3 (10:51→21:09)
--- NOTE | 2018-04-22 11:33 | RADRPT ---
EXAM DATE: 04/22/2018 11:24 AM EDT AGE/SEX: 47 years / Female INDICATIONS: Respiratory failure and shortness of breath. CLINICAL DATA: This is the patient's initial encounter. Patient reports that signs and symptoms have been present for 1 day and indicates a pain score of Nonresponsive. MEDICAL/SURGICAL HISTORY: Non-responsive. Non-responsive. COMPARISON: [facility] [place], 04/20/2018. . FINDINGS: There is a catheter projected over the right side of the abdomen tip projected over the region of the inferior vena cava right atrial junction. There is been a continued mild improvement in the pulmonar y edema pattern. There is no effusion. Heart size remains within normal limits. There is no effusion. The bony thorax remains intact. CONCLUSION: 1. Continued improvement in pulmonary edema. 2. Right internal jugular central venous line remains in place. The catheter tip is not well visuali zed. 3. Second stable appearing catheter projected in the right side of the abdomen the tip projected ove r the region of the inferior vena cava right atrial junction. Electronically signed by: Sridhar Johnson MD 04/22/2018 11:32 AM EDT
--- NOTE | 2018-04-22 11:59 | ECHRPT ---
Indication: CARDIOMYOPATHY CONCLUSIONS Normal left ventricular size. Mild concentric left ventricular hypertrophy. The left ventricle is not well visualized. Mitral annular calcification is present. BP: / HR: Rhythm: MEASUREMENTS (Male / Female) Normal Values Technical Quality: 2D ECHO LV Diastolic Diameter PLAX 4.1 cm 4.2 - 5.9 / 3.9 - 5.3 cm LV Systolic Diameter PLAX 3.4 cm IVS Diastolic Thickness 0.7 cm 0.6 - 1.0 / 0.6 - 0.9 cm LVPW Diastolic Thickness 0.8 cm 0.6 - 1.0 / 0.6 - 0.9 cm LV Relative Wall Thickness 0.4 RV Internal Dim ED PLAX 1.8 cm DOPPLER Mitral E Point Velocity 87.0 cm/s Mitral A Point Velocity 79.0 cm/s Mitral E to A Ratio 1.1 TR Peak Velocity 239.0 cm/s TR Peak Gradient 22.8 mmHg Right Atrial Pressure 10.0 mmHg Pulmonary Artery Systolic Pressu 32.8 mmHg Right Ventricular Systolic Press 32.8 mmHg FINDINGS LEFT VENTRICLE Normal left ventricular size. Mild concentric left ventricular hypertrophy. The left ventricular systolic function is normal with an estimated ejection fraction in the range of 60-65%. The left ventricle is not well visualized. RIGHT VENTRICLE Normal right ventricular size and systolic function. LEFT ATRIUM The left atrial size is normal. RIGHT ATRIUM The right atrial size is normal. ATRIAL SEPTUM Normal atrial septal thickness without atrial level shunting by limited color doppler interrogation. AORTA The aortic root and proximal ascending aorta are normal in size on limited imaging. MITRAL VALVE Mitral annular calcification is present. AORTIC VALVE Trileaflet aortic valve. No aortic valve stenosis or regurgitation. TRICUSPID VALVE Structurally normal tricuspid valve. No tricuspid valve stenosis or regurgitation. PULMONARY VALVE No pulmonary valve regurgitation or stenosis. VESSELS The inferior vena cava is normal in size. PERICARDIUM No pericardial effusion. Jevon Reyez MD, FACC (Electronically Signed) Final Date:22 April 2018 11:58
[2018-04-22] MEDS: INSULIN NovoLIN REGULAR SUPPLEMENTAL SCALE SQ SCH (12:00)
[2018-04-22] MEDS ORDERED: CALCIUM CHLORIDE INJ 1 GM in SODIUM CHLORIDE 0.9% INJ 100 ML IV ONE (15:00)
--- NOTE | 2018-04-22 15:48 | EKG ---
Date Performed: 04/22/2018 Time Performed: 07:45:10 PTAGE: 47 years EKG: Sinus tachycardia Poor R wave progression - probable normal variant Lateral T wave changes are nonspecific Generalized low QRS voltages Abnormal ECG Compared to PREVIOUS TRACING , sinus tachycardia has replaced atrial fibrillation. PREVIOUS TRACIN04/20/2018 13.00 DOCTOR: Sunday Cordero Interpretating Date/Time 04/22/2018 15:47:37
[2018-04-22] MEDS ORDERED: EPOPROSTENOL NEB SOLUTION 20 NG/KG/MIN 100 ML NEB SCH ×2 (17:00)
[2018-04-22] MEDS ORDERED: FUROSEMIDE 40 MG/4 ML VIAL IV PUSH ONE (20:00)
[2018-04-23] VITALS (19 sets, daily range): BP systolic 90–128; BP diastolic 48–97; PULSE 81–120; RESP 18–20; TEMP 98.4–100.8; O2SAT 92–98
[2018-04-23] MEDS: AMIODARONE INJ 450 MG in SODIUM CHLOR 0.9% (EXCEL) INJ 250 ML IV PRN (02:18)
[2018-04-23] MEDS: oxyCODONE HCL ORAL CONC 5 MG/0.25 ML SYRINGE PO SCH ×3 (02:26→09:46)
[2018-04-23] MEDS: AMPICILLIN-SULBACTAM INJ 3 GM in SODIUM CHLORIDE 0.9% INJ 100 ML IV SCH ×4 (02:27→20:53)
[2018-04-23] MEDS: CHLORHEXIDINE GLUCONATE 2 % 1 PACK (2 CLOTHS) TOP SCH (03:29)
[2018-04-23] MEDS: RESP: ALBUTEROL 2.5 MG/IPRATROPIUM 0.5 MG NEB (SCH) INH ×4 (04:18→21:33)
[2018-04-23 04:51] LABS: HEMATOCRIT 31.4 % (35.0-46.0); HEMOGLOBIN 10.7 GM/DL (11.6-15.3); MEAN CELL VOLUME 88.1 FL (80.0-100.0); MEAN CORPUSCULAR HEMOGLOBIN 29.9 PG (27.0-34.0); MEAN PLATELET VOLUME 8.8 FL (7.0-11.0); PLATELET COUNT 106 TH/MM3 (150-450); RED BLOOD COUNT 3.56 MIL/MM3 (4.00-5.30); RED CELL DISTRIBUTION WIDTH 14.5 % (11.6-17.2); WHITE BLOOD COUNT 21.6 TH/MM3 (4.0-11.0)
[2018-04-23 05:19] LABS: BICARBONATE 27.1 MEQ/L (21.0-32.0); CALCIUM 8.3 MG/DL (8.5-10.1); CREATININE 0.81 MG/DL (0.50-1.00)
[2018-04-23] MEDS: PROPOFOL 1000 MG/100 ML INJ 100 ML IV PRN ×2 (05:36→18:01)
[2018-04-23] MEDS: VASOPRESSIN IV PRN (05:38)
[2018-04-23] MEDS: OLANZapine ODT 5 MG TAB PO SCH (05:38)
[2018-04-23] MEDS: SODIUM CHLORIDE 0.9% IV PRN (05:38)
[2018-04-23] MEDS: INSULIN NovoLIN REGULAR SUPPLEMENTAL SCALE SQ SCH ×4 (06:00→17:47)
[2018-04-23] MEDS: MILRINONE INJ 20 MG in SODIUM CHLORIDE 0.9% INJ 80 ML IV SCH ×3 (06:34→19:00)
[2018-04-23] MEDS ORDERED: SODIUM CHLOR 0.9% IV PRN (07:30)
[2018-04-23] MEDS ORDERED: DOBUTAMINE IV PRN (07:30)
[2018-04-23] MEDS: CHLORHEXIDINE 0.12% (ORAL KIT) 15 ML CUP MT SCH ×2 (07:57→20:53)
[2018-04-23] MEDS: ATORVASTATIN 40 MG TAB PO SCH (08:32)
[2018-04-23] MEDS: ASPIRIN 81 MG CHEW TAB PO SCH (08:32)
[2018-04-23] MEDS: SODIUM CHLORIDE 0.9% FLUSH 10 ML FLUSH IV FLUSH SCH ×2 (08:32→20:54)
[2018-04-23] MEDS: TICAGRELOR 90 MG TAB PO SCH ×2 (08:42→20:52)
--- NOTE | 2018-04-23 10:19 | PD.CARD.PN ---
Subjective Subjective Remarks Intubated Objective Medications Current Medications Medications (Trade) Dose Ordered Sig/Chente Route Start Time Stop Time Status Last Admin (Demerol Inj) 25 mg Q2H PRN IV PUSH 04/20/18 04:30 Magnesium Sulfate 4 gm/Sodium Chloride 250 ml @ 62.5 mls/hr Q4H PRN IV 04/20/18 04:30 (Lacrilube Opht Oint) 1 applic Q4H PRN EACH EYE 04/20/18 04:30 (NS Flush) 2 ml BID IV FLUSH 04/20/18 09:00 04/23/18 08:32 (NS Flush) 2 ml UNSCH PRN IV FLUSH 04/20/18 04:30 Miscellaneous Information 0 ml @ 0 mls/hr UNSCH IV 04/20/18 04:30 ([facility] [place] Nursing Information) 1 Q361D XX 04/20/18 04:30 (Chlorhexidine 2% Cloth) 3 pack Taper DAILY@04 TOP 04/21/18 04:00 04/17/19 03:59 04/23/18 03:29 (Chlorhexidine 2% Cloth) 3 pack UNSCH PRN TOP 04/20/18 04:30 Potassium Chloride 100 ml @ 50 mls/hr Q2H PRN IV 04/20/18 04:30 04/20/18 19:00 Potassium Chloride 100 ml @ 50 mls/hr Q2H PRN IV 04/20/18 04:30 (K-Lyte Cl Eff) 50 meq UNSCH PRN PO 04/20/18 04:30 Potassium Chloride 100 ml @ 25 mls/hr UNSCH PRN IV 04/20/18 04:30 Potassium Chloride 100 ml @ 50 mls/hr Q2H PRN IV 04/20/18 04:30 Magnesium Sulfate 4 gm/Sodium Chloride 100 ml @ 50 mls/hr UNSCH PRN IV 04/20/18 04:30 (Mag-Ox) 800 mg UNSCH PRN PO 04/20/18 04:30 Magnesium Sulfate 2 gm/Sodium Chloride 100 ml @ 50 mls/hr UNSCH PRN IV 04/20/18 04:30 04/21/18 07:29 (K-Phos) 2,000 mg Q4H PRN PO 04/20/18 04:30 Sodium Phosphate 30 mmol/Sodium Chloride 250 ml @ 42 mls/hr UNSCH PRN IV 04/20/18 04:30 (K-Phos) 2,000 mg UNSCH PRN PO/TUBE 04/20/18 04:30 Potassium Phosphate 30 mmol/ Sodium Chloride 260 ml @ 42 mls/hr UNSCH PRN IV 04/20/18 04:30 (Peridex 0.12% Liq) 15 ml BID@08,20 MT 04/20/18 08:00 04/23/18 07:57 (Duoneb Neb) 1 ampule Q6HR NEB INH 04/20/18 10:00 04/23/18 04:18 (Duoneb Neb) 1 ampule Q2HR NEB PRN INH 04/20/18 04:30 Propofol 100 ml @ 2.82 mls/hr TITRATE PRN IV 04/20/18 06:45 04/23/18 05:36 Amiodarone HCl 450 mg/Sodium Chloride 259 ml @ 33.33 mls/ hr Q7H47M PRN IV 04/20/18 06:45 04/23/18 02:18 Fentanyl Citrate 250 ml @ 5 mls/hr TITRATE PRN IV 04/20/18 07:00 04/22/18 23:45 (Aspirin Chew) 81 mg DAILY PO 04/21/18 09:00 04/23/18 08:32 (Brilinta) 90 mg BID PO 04/20/18 21:00 04/23/18 08:42 (Lipitor) 40 mg DAILY PO 04/21/18 09:00 04/23/18 08:32 (Pill Splitter) 1 ea UNSCH PRN OTHER 04/20/18 10:30 Norepinephrine Bitartrate 16 mg/ Sodium Chloride 250 ml @ 1.87 mls/hr TITRATE PRN IV 04/20/18 23:00 Vasopressin 160 units/Sodium Chloride 100 ml @ 0.37 mls/hr Q24H PRN IV 04/20/18 23:00 04/23/18 05:38 Milrinone Lactate 20 mg/Sodium Chloride 100 ml @ 11.47 mls/ hr Q8H44M IV 04/21/18 09:46 04/23/18 06:34 Ampicillin Sodium/ Sulbactam Sodium 3 gm/Sodium Chloride 100 ml @ 200 mls/hr Q6H IV 04/22/18 09:00 04/23/18 08:32 (D50w (Vial) Inj) 25 ml UNSCH PRN IV PUSH 04/22/18 08:30 (NovoLIN R SUPPLEMENTAL SCALE) 1 Q6HR SQ 04/22/18 12:00 (ZyPREXA ZYDIS ODT) 5 mg Q8HR PO 04/22/18 09:45 04/23/18 05:38 (Roxicodone Intensol Liq) 10 mg Q4H PO 04/22/18 09:45 04/23/18 09:46 (Dilaudid Pf Inj) 0.5 mg Q1H PRN IV PUSH 04/22/18 09:45 04/22/18 13:45 Vital Signs / I&O Vital Signs Date Time Temp Pulse Resp B/P (MAP) Pulse Ox O2 Delivery O2 Flow Rate FiO2 04/23/18 07:48 65 04/23/18 07:48 94 Mechanical Ventilator 65 04/23/18 07:47 108 04/23/18 07:40 98.4 108 20 91/53 (66) 95 113/55 (74) 04/23/18 07:19 108 04/23/18 06:34 98 105/54 04/23/18 06:00 94 95/55 (68) 102/51 (68) 04/23/18 05:38 93 107/52 04/23/18 05:05 94 65 04/23/18 05:00 94 Mechanical Ventilator 65 04/23/18 04:18 94 40 04/23/18 04:00 98.8 82 20 92/63 (73) 92 122/63 (82) 04/23/18 04:00 81 04/23/18 03:29 20 04/23/18 03:00 40 04/23/18 03:00 94 Mechanical Ventilator 40 04/23/18 02:18 83 101/54 04/23/18 00:13 94 40 04/23/18 00:00 94 Mechanical Ventilator 40 04/23/18 00:00 98.8 83 20 94/53 (67) 94 105/55 (72) 04/23/18 00:00 40 04/22/18 23:00 84 04/22/18 20:45 85 109/59 04/22/18 20:40 97 40 04/22/18 20:00 98.8 81 20 107/79 (88) 98 117/62 (80) 04/22/18 19:45 98 Mechanical Ventilator 40 04/22/18 19:45 40 04/22/18 19:00 82 04/22/18 18:17 85 115/67 (83) 111/56 (74) 04/22/18 16:20 97 40 04/22/18 15:35 90 04/22/18 15:00 40 04/22/18 15:00 94 Mechanical Ventilator 40 04/22/18 15:00 98.8 87 20 116/74 (88) 94 119/69 (86) 04/22/18 13:49 93 40 04/22/18 12:00 80/54 (70) 04/22/18 11:58 97 105/51 04/22/18 11:00 79/57 (73) 04/22/18 11:00 40 04/22/18 11:00 98.8 96 20 107/64 (78) 94 93/48 (63) 04/22/18 11:00 97 04/22/18 11:00 94 Mechanical Ventilator 40 I/O 04/22/18 04/22/18 04/22/18 04/23/18 04/23/18 04/23/18 07:00 15:00 23:00 07:00 15:00 23:00 Intake Total 1749.5 ml 300 ml 1065.0 ml 3617 ml 100 ml Output Total 950 ml 1865 ml 2500 ml Balance 799.5 ml 300 ml -800.0 ml 1117 ml 100 ml Intake Oral 0 ml IV Total 1589.5 ml 300 ml 1018.0 ml 3041 ml 100 ml Tube Feeding 47 ml 386 ml Tube Irrigant 160 ml Other 190 ml Output Urine Total 700 ml 1865 ml 2500 ml Gastric Drainage Total 250 ml # Voids 12 # Bowel Movements 0 Physical Exam Moving all 4 extremities non-purposefully. Intermittent UE tremors Discussion with Dr. Crisostomo On IV milronone but off all other inotropes/pressors Chest clear anteriorly CV S1S2 RRR, no murmur Abd soft Ext: right groin OK Laboratory Laboratory Tests Test 04/23/18 04:38 White Blood Count 21.6 TH/MM3 Red Blood Count 3.56 MIL/MM3 Hemoglobin 10.7 GM/DL Hematocrit 31.4 % Mean Corpuscular Volume 88.1 FL Mean Corpuscular Hemoglobin 29.9 PG Mean Corpuscular Hemoglobin Concent 34.0 % Red Cell Distribution Width 14.5 % Platelet Count 106 TH/MM3 Mean Platelet Volume 8.8 FL Blood Urea Nitrogen 22 MG/DL Creatinine 0.81 MG/DL Random Glucose 103 MG/DL Calcium Level 8.3 MG/DL Sodium Level 146 MEQ/L Potassium Level 4.5 MEQ/L Chloride Level 111 MEQ/L Carbon Dioxide Level 27.1 MEQ/L Anion Gap 8 MEQ/L Estimat Glomerular Filtration Rate 75 ML/MIN Imaging Last 48 hours Impressions Chest X-Ray 04/22/18 0000 Signed Impressions: CONCLUSION: 1. Continued improvement in pulmonary edema. 2. Right internal jugular central venous line remains in place. The catheter t ip is not well visualized. 3. Second stable appearing catheter projected in the right side of the abdomen the tip projected over the region of the inferior vena cava right atrial junct ion. Assessment and Plan Problem List: (1) Cardiogenic shock ICD Codes: R57.0 - Cardiogenic shock Plan: shock state resolved (2) Anterior wall myocardial infarction ICD Codes: I21.09 - ST elevation (STEMI) myocardial infarction involving other coronary artery of anterior wall Plan: R waves preserved on last EKG (3) Stented coronary artery ICD Codes: Z95.5 - Presence of coronary angioplasty implant and graft Plan: cont ASA 81, ticagrelor Assessment and Plan Persistent hemodynamic improvement. Increased WBC and drop in platelet count. Will discuss further with animal caregiver Serafin Bello MD Apr 23, 2018 10:19
[2018-04-23] MEDS: FUROSEMIDE 20 MG/2 ML VIAL IV PUSH SCH ×2 (11:00→17:48)
--- NOTE | 2018-04-23 11:31 | HHI.CCPN ---
Subjective Remarks/Hospital Course Hospital Course: This is a 47yF with history of 2ppd tobacco use who presented on 04/18 with complaints of chest pain radiating to the back. she was diagnosed at that time with atypical chest pain and GERD and sent home with azithromycin, ciprofloxacin , famotidine, and omeprazole. Tonight, she again complained to her daughter of crushing substernal chest pain. EMS was called, but the patient collapsed. presenting rhythm was V. Fib. patient was defibrillated initially x 1 with ROSC but decompensated into v. fib again requiring multiple rounds of epi and defibrillation before ROSC was obtained. Per ER physician, she was ? following commands post arrest, but then had seizure-like activity and was given iv ativan. On my arrival to the ER, she has briskly reactive pupils, + cough, + gag. RUE is ?purposeful and questionably crossing midline. LUE appears to be extensor posturing. EKG post ROSC by EMS shows ST elevations in the precordial leads, but EKG on arrival to ED does not demonstrate ST elevations. bedside critical care echo demonstrates what appears to be anteroseptal hypokinesis which is regional. labs remarkable for trop 0.08. no additional information available from patient due to her clinical condition. ROS unobtainable. I discussed the case with Dr. Bello as well as Dr. Lynn. Dr. Lynn would like to stabilize the patient and take her urgently for [facility]. We both agree she is a good post-arrest induced hypothermia candidate, but until intervention is performed, will anticipate targeted temperature therapy targeting 36 degrees Celsius to mitigate any bleeding concerns. Patient taken to left heart cath today with large LAD thrombus which was successfully stented with good angiographic result. Patient is left coronary dominant. Post left heart cath, patient's EF by ventriculogram was 10% and patient was in cardiogenic shock. Intra-arterial balloon pump was placed. Patient was taken back to the CVICU. Patient had 2 more episodes of V. fib cardiac arrest which were successfully different related back into sinus rhythm. Despite maximal efforts, patient remains in florid cardiogenic shock with a lactate greater than 8 and significant multiorgan failure. I evaluated the patient at around 1830. She is mottled and poorly perfused. ScVo2 via central line is 30% despite IABP at 1-1. I had a long discussion with Dr. Bello who consulted with Dr. Lynn: They both feel that the patient's vascular anatomy is not amenable to placement of percutaneous left ventricular assist device, and mechanically we have nothing additional to offer the patient except for intra-arterial balloon pump. I long conversation with the family where I conveyed how critically ill she was and her poor prognosis if her ventricular function did not improve. I placed right IJ introducer sheath and PA catheter to monitor continuous cardiac output and filling pressures (see separate procedure note for details and hemodynamic data). By [place] she has a mixed venous sat of 58% and a cardiac index of 1.2. I started isoproterenol at 5 mcg/min and added vasopressin 0.04 U/min. She is already on Levophed at 30 mcg/min and epinephrine at 10 mcg/min. Lactate continues to up trend. She is severely hypokalemic with a potassium of 1.9 and acidotic with a pH of 7.19. Subjective: 04/21: remains critically ill in shock. lactate clearing to 3.3 from peak of 8. uop adequate. remains on IABP 1:1, isuprel at 8 mcg/min, epi at 5 mcg/min. intermittent cleviprex to keep sbp 110 - 130. remains hypothermic. PCWP 20 this AM. CI 1.5 despite high-dose inotropes. 04/22: awakens and follows commands. neuro intact. remains in shock. on epi at 3 mcg/min, off isuprel. milrinone at 0.375 mcg/kg/min. cardiac index has improved to 3.7. filling pressures remain stable. warm at 3am. somewhat agitated despite fentanyl, propofol. 04/23: Sedated, arousable, orally intubated on mechanical ventilation currently. Moving spontaneously trying to reach for ET tube. Off all pressors. Milrinone stop this morning. Coming down on vent settings, PEEP decreased to +5 FiO2 50% . Being started on beta-delbert per cardiology. Will add lisinopril 2.5 mg daily later today. Continue diuresis. Low-grade temperature 100.8 noted. Objective Vital Signs Date Time Temp Pulse Resp B/P (MAP) Pulse Ox O2 Delivery O2 Flow Rate FiO2 04/23/18 11:08 45 04/23/18 11:08 120 04/23/18 11:08 96 Mechanical Ventilator 04/23/18 11:06 100.6 20 102/97 (99) 128/67 (87) 04/22/18 07:00 2.00 Intake and Output 04/23/18 04/23/18 04/24/18 08:00 16:00 00:00 Intake Total 3617 ml 160 ml Output Total 2500 ml Balance 1117 ml 160 ml Result Diagram: 04/23/18 0438 04/23/18 0438 Imaging Last Impressions Head CT 04/20/18 0430 Signed Impressions: CONCLUSION: Unremarkable study. Chest X-Ray 04/20/18 0345 Signed Impressions: CONCLUSION: No acute cardiopulmonary disease. Objective Remarks GENERAL: Middle-aged appearing female, lying in bed, intubated HEENT: Normocephalic. Atraumatic. Pupils 4 mm, equal, round, briskly reactive , conjugate. Mucous membranes are moist NECK: Trachea is midline. There is no JVD. right IJ introducer sheath and pa catheter in place, sites clean/dry/intact. CHEST: Equal chest rise. PC/AC 20/10, rate 18. fio2 50%. CARDIOVASCULAR: Tachycardic rate, regular rhythm. Sinus. ABDOMEN: Soft, nontender, nondistended. No guarding. MUSCULOSKELETAL: Pulses 2+. No peripheral edema. right groin IABP site c/d/i. left femoral cooling catheter site c/d/i. NEUROLOGICAL: RASS -2. awakens and follows commands x 4. moves all extremities spontaneously. no focal deficits. A/P Assessment and Plan Assessment: 47-year-old female with acute myocardial infarction s/p [facility] with PCI to the LAD with persistent cardiogenic shock and associated multiorgan failure. neurologic improvement is a very good sign overall. rewarmed as of 0300 on 04/22. Plan by systems: Neurologic: Hypoxic ischemic encephalopathy- resolving. Frequent neurochecks EEG 04/20: generalized slowing, burst suppression, no ictal activity Propofol, fentanyl for goal RASS -2 will add precedex for agitation. Decrease Zyprexa to 5 mg via OG-tube daily on 04/23 Avoid long-acting sedatives s/p therapeutic hypothermia, target 34 degrees Celsius, rewarmed 0300 on 04/22 Respiratory: Acute hypoxic and hypercarbic respiratory failure Acute cardiogenic pulmonary edema Vent bundle Head of bed elevated Nebs prn Off inhaled Flolan since 04/22 Wean FiO2 for goal SPO2 greater than 90% Remains on mechanical ventilation. Plan to start CPAP trials tomorrow. Decreased FiO2 to 50% and PEEP to +5. I time decreased to 1 second. Cardiovascular: Acute non-ST elevation myocardial infarction Out of hospital ventricular fibrillation cardiac arrest s/p [facility] with PCI to LAD 04/20 Cardiogenic Shock- persistent Ischemic Cardiomyopathy, acute EF < 20% Acute pulmonary hypertension Off heparin drip IABP discontinued on 04/22 Off all pressors. Being started on Lopressor 12.5 mg p.o. every 8 hourly per cardiology on 04/23. Since blood pressure running on the high side will add lisinopril 2.5 mg via G-tube daily. milrinone at 0.375 mcg/kg/min, stopped as cardiac index greater than 4 Aspirin/Brilinta daily Cardiology consult: Dr. Bello continue Amiodarone drip at 0.5 mg/min. trend lactates, uop, svo2 keep PA catheter today Renal: Acute kidney injury- resolving. Likely secondary to poor perfusion from cardiac injury Daily BMP Temp sensing Ordonez -- Strict I/Os FEN/GI: Lactic acidosis- resolving. ICU electrolyte protocol N.p.o. while in shock Place orogastric tube to suction saline lock ivf. Heme/ID: Leukocytosis/ Fever -Possible sepsis F/U sputum, blood, urine cultures. On unasyn for empiric antibiotic coverage check CXR Check procalcitonin daily CBC. Endocrine: Hyperglycemia of critical illness --SSI q6h. Prophylaxis: GI Prophylaxis Started Pepcid on 04/23 DVT Prophylaxis -- SCDs Off heparin drip since 04/22. Checking HIT screen prior to initiating subcutaneous Lovenox Lines: 04/20 left femoral cooling catheter: discontinue 0n 04/23 in v/o leukocytosis. 04/20 right radial arterial line 04/20 [place]donez 04/20 right IJ introducer sheath 04/20 right IJ PA catheter 04/20 right femoral IABP-discontinued 04/22 Dispo: remain in ICU. remains critically ill. Discussed with Dr. Bello, discussed with [facility]. This patient remains critically ill with one or more organ systems which are or may become a threat to life. I have spent in excess of 40 minutes discontinuously in the care and management of this patient. This time is exclusive of procedures, and includes, but is not limited to, evaluation of the patient, review of the medical record, discussions with family, consultants, nursing staff, or respiratory therapy, and documentation in the medical record. Lex Crisostomo MD Apr 23, 2018 11:31
[2018-04-23] MEDS: FAMOTIDINE 20 MG TAB OG-TUBE SCH ×2 (12:04→20:52)
[2018-04-23] MEDS: POTASSIUM CHLORIDE 25 MEQ EFFERVESCENT TAB PO PRN (13:45)
[2018-04-23] MEDS: METOPROLOL TARTRATE 25 MG TAB PO SCH ×2 (13:53→22:00)
[2018-04-23] MEDS ORDERED: ACETAMINOPHEN 650 MG/20.3 ML UDC OG-TUBE SCH (14:00)
[2018-04-23] MEDS: POTASSIUM CHLORIDE 20 MEQ PWD PACKET OG-TUBE SCH ×2 (14:15→20:52)
[2018-04-23] MEDS: fentaNYL DRIP 250 ML IV PRN (18:16)
[2018-04-23] MEDS: ACETAMINOPHEN 650 MG/20.3 ML UDC PO SCH (20:53)
[2018-04-24] VITALS (17 sets, daily range): BP systolic 96–170; BP diastolic 55–89; PULSE 82–112; RESP 16–20; TEMP 98.8–100.3; O2SAT 92–98
[2018-04-24] MEDS: AMPICILLIN-SULBACTAM INJ 3 GM in SODIUM CHLORIDE 0.9% INJ 100 ML IV SCH ×4 (02:08→20:27)
[2018-04-24] MEDS: ACETAMINOPHEN 650 MG/20.3 ML UDC PO SCH ×4 (02:09→20:26)
[2018-04-24] MEDS: RESP: ALBUTEROL 2.5 MG/IPRATROPIUM 0.5 MG NEB (SCH) INH ×5 (02:54→21:15)
[2018-04-24] MEDS: CHLORHEXIDINE GLUCONATE 2 % 1 PACK (2 CLOTHS) TOP SCH (04:00)
[2018-04-24 04:07] LABS: BASOPHIL % 0.2 % (0.0-2.0); EOSINOPHIL % 0.1 % (0.0-4.0); HEMOGLOBIN 9.4 GM/DL (11.6-15.3); LYMPH % 16.5 % (9.0-44.0); LYMPHOCYTE # 2.7 TH/MM3 (1.0-4.8); MEAN CELL VOLUME 88.7 FL (80.0-100.0); MEAN CORPUSCULAR HEMOGLOBIN 29.8 PG (27.0-34.0); MEAN CORPUSCULAR HGB CONC 33.5 % (32.0-36.0); MEAN PLATELET VOLUME 8.6 FL (7.0-11.0); MONO % 3.5 % (0.0-8.0); MONOCYTE # 0.6 TH/MM3 (0-0.9); NEUT % 79.7 % (16.0-70.0); PLATELET COUNT 86 TH/MM3 (150-450); RED BLOOD COUNT 3.15 MIL/MM3 (4.00-5.30); RED CELL DISTRIBUTION WIDTH 14.6 % (11.6-17.2); WHITE BLOOD COUNT 16.3 TH/MM3 (4.0-11.0)
[2018-04-24 04:35] LABS: ALBUMIN 2.5 GM/DL (3.4-5.0); ALKALINE PHOSPHATASE 61 U/L (45-117); ALT (GPT) 80 U/L (10-53); AST (GOT) 284 U/L (15-37); BICARBONATE 29.4 MEQ/L (21.0-32.0); BLOOD UREA NITROGEN 15 MG/DL (7-18); CALCIUM 7.7 MG/DL (8.5-10.1); CHLORIDE 116 MEQ/L (98-107); CREATININE 0.75 MG/DL (0.50-1.00); GLOMERULAR FILTRATION RATE 82 ML/MIN (>89); GLUCOSE,RANDOM 91 MG/DL (74-106); MAGNESIUM 2.3 MG/DL (1.5-2.5); PHOSPHORUS 2.7 MG/DL (2.5-4.9); SODIUM (NA) 152 MEQ/L (136-145); TOTAL BILIRUBIN ADULT 0.7 MG/DL (0.2-1.0); TOTAL PROTEIN 5.2 GM/DL (6.4-8.2)
[2018-04-24] MEDS: POTASSIUM CHLORIDE 25 MEQ EFFERVESCENT TAB PO PRN (04:53)
[2018-04-24] MEDS: METOPROLOL TARTRATE 25 MG TAB PO SCH (06:00)
[2018-04-24] MEDS: INSULIN NovoLIN REGULAR SUPPLEMENTAL SCALE SQ SCH ×5 (06:00→23:16)
--- NOTE | 2018-04-24 06:30 | RADRPT ---
EXAM DATE: 04/24/2018 6:16 AM EDT AGE/SEX: 47 years / Female INDICATIONS: Shortness of breath, possible pulmonary disease. CLINICAL DATA: This is the patient's subsequent encounter. Patient reports that signs and symptoms h ave been present for 4 - 6 days and indicates a pain score of Nonresponsive. MEDICAL/SURGICAL HISTORY: Non-responsive. Non-responsive. COMPARISON: [facility], CHEST SINGLE AP, 04/22/2018. . FINDINGS: The ET tube, NG tube are well placed. The right internal jugular central line tip is in the right atr ium. The heart size is normal. There is increased density at the right base with silhouetting of the right hemidiaphragm. There is increased density at the medial left base at the retrocardiac region. CONCLUSION: Right base consolidation/atelectasis and effusion. This appears worse compared to the prior exam. New mild area of suspected atelectasis or consolidation at the medial left base. Electronically signed by: Hood Best MD 04/24/2018 6:29 AM EDT
[2018-04-24] MEDS: CHLORHEXIDINE 0.12% (ORAL KIT) 15 ML CUP MT SCH ×2 (07:29→20:28)
[2018-04-24] MEDS: MILRINONE INJ 20 MG in SODIUM CHLORIDE 0.9% INJ 80 ML IV SCH ×3 (07:29→11:51)
[2018-04-24] MEDS: TICAGRELOR 90 MG TAB PO SCH ×2 (07:45→20:27)
[2018-04-24] MEDS: ATORVASTATIN 40 MG TAB PO SCH (07:45)
[2018-04-24] MEDS: FAMOTIDINE 20 MG TAB OG-TUBE SCH ×2 (07:45→20:26)
[2018-04-24] MEDS: POTASSIUM CHLORIDE 20 MEQ PWD PACKET OG-TUBE SCH ×2 (07:46→20:26)
[2018-04-24] MEDS ORDERED: LISINOPRIL 5 MG TAB NG ONE (08:15)
[2018-04-24] MEDS ORDERED: FUROSEMIDE 100 MG/10 ML VIAL IV PUSH ONE (08:30)
--- NOTE | 2018-04-24 08:44 | HHI.CCPN ---
Subjective Remarks/Hospital Course Hospital Course: This is a 47yF with history of 2ppd tobacco use who presented on 04/18 with complaints of chest pain radiating to the back. she was diagnosed at that time with atypical chest pain and GERD and sent home with azithromycin, ciprofloxacin , famotidine, and omeprazole. Tonight, she again complained to her daughter of crushing substernal chest pain. EMS was called, but the patient collapsed. presenting rhythm was V. Fib. patient was defibrillated initially x 1 with ROSC but decompensated into v. fib again requiring multiple rounds of epi and defibrillation before ROSC was obtained. Per ER physician, she was ? following commands post arrest, but then had seizure-like activity and was given iv ativan. On my arrival to the ER, she has briskly reactive pupils, + cough, + gag. RUE is ?purposeful and questionably crossing midline. LUE appears to be extensor posturing. EKG post ROSC by EMS shows ST elevations in the precordial leads, but EKG on arrival to ED does not demonstrate ST elevations. bedside critical care echo demonstrates what appears to be anteroseptal hypokinesis which is regional. labs remarkable for trop 0.08. no additional information available from patient due to her clinical condition. ROS unobtainable. I discussed the case with Dr. Bello as well as Dr. Lynn. Dr. Lynn would like to stabilize the patient and take her urgently for [facility]. We both agree she is a good post-arrest induced hypothermia candidate, but until intervention is performed, will anticipate targeted temperature therapy targeting 36 degrees Celsius to mitigate any bleeding concerns. Patient taken to left heart cath today with large LAD thrombus which was successfully stented with good angiographic result. Patient is left coronary dominant. Post left heart cath, patient's EF by ventriculogram was 10% and patient was in cardiogenic shock. Intra-arterial balloon pump was placed. Patient was taken back to the CVICU. Patient had 2 more episodes of V. fib cardiac arrest which were successfully different related back into sinus rhythm. Despite maximal efforts, patient remains in florid cardiogenic shock with a lactate greater than 8 and significant multiorgan failure. I evaluated the patient at around 1830. She is mottled and poorly perfused. ScVo2 via central line is 30% despite IABP at 1-1. I had a long discussion with Dr. Bello who consulted with Dr. Lynn: They both feel that the patient's vascular anatomy is not amenable to placement of percutaneous left ventricular assist device, and mechanically we have nothing additional to offer the patient except for intra-arterial balloon pump. I long conversation with the family where I conveyed how critically ill she was and her poor prognosis if her ventricular function did not improve. I placed right IJ introducer sheath and PA catheter to monitor continuous cardiac output and filling pressures (see separate procedure note for details and hemodynamic data). By [place] she has a mixed venous sat of 58% and a cardiac index of 1.2. I started isoproterenol at 5 mcg/min and added vasopressin 0.04 U/min. She is already on Levophed at 30 mcg/min and epinephrine at 10 mcg/min. Lactate continues to up trend. She is severely hypokalemic with a potassium of 1.9 and acidotic with a pH of 7.19. Subjective: 04/21: remains critically ill in shock. lactate clearing to 3.3 from peak of 8. uop adequate. remains on IABP 1:1, isuprel at 8 mcg/min, epi at 5 mcg/min. intermittent cleviprex to keep sbp 110 - 130. remains hypothermic. PCWP 20 this AM. CI 1.5 despite high-dose inotropes. 04/22: awakens and follows commands. neuro intact. remains in shock. on epi at 3 mcg/min, off isuprel. milrinone at 0.375 mcg/kg/min. cardiac index has improved to 3.7. filling pressures remain stable. warm at 3am. somewhat agitated despite fentanyl, propofol. 04/23: Sedated, arousable, orally intubated on mechanical ventilation currently. Moving spontaneously trying to reach for ET tube. Off all pressors. Milrinone stop this morning. Coming down on vent settings, PEEP decreased to +5 FiO2 50% . Being started on beta-delbert per cardiology. Will add lisinopril 2.5 mg daily later today. Continue diuresis. Low-grade temperature 100.8 noted. 04/24: filling pressures continue to rise despite diuretic therapy. cardiac index remains acceptable. on SBT today. wbc downtrending. fever overnight likely rebound hyperthermia. Objective Vital Signs Date Time Temp Pulse Resp B/P (MAP) Pulse Ox O2 Delivery O2 Flow Rate FiO2 04/24/18 07:29 85 04/24/18 07:20 97 Mechanical Ventilator 40 04/24/18 07:15 99.7 20 129/72 (91) 170/89 (116) 04/22/18 07:00 2.00 Intake and Output 04/24/18 04/24/18 04/25/18 08:00 16:00 00:00 Intake Total 1549 ml Output Total 1955 ml Balance -406 ml Result Diagram: 04/24/1833904/24/18 034 Imaging Last Impressions Head CT 04/20/18 043 Signed Impressions: CONCLUSION: Unremarkable study. Chest X-Ray 04/20/18344 Signed Impressions: CONCLUSION: No acute cardiopulmonary disease. Objective Remarks GENERAL: Middle-aged appearing female, lying in bed, intubated HEENT: Normocephalic. Atraumatic. Pupils 4 mm, equal, round, briskly reactive , conjugate. Mucous membranes are moist NECK: Trachea is midline. There is no JVD. right IJ introducer sheath and pa catheter in place, sites clean/dry/intact. CHEST: Equal chest rise. on PSV 08/26/40% this AM. CARDIOVASCULAR: normal rate of 96, regular rhythm. Sinus. CO 8.9 LPM, PA 42/19 , CVP 20. ABDOMEN: Soft, nontender, nondistended. No guarding. MUSCULOSKELETAL: Pulses 2+. No peripheral edema. NEUROLOGICAL: RASS -2. awakens and follows commands x 4. moves all extremities spontaneously. no focal deficits. A/P Assessment and Plan Assessment: 47-year-old female with acute myocardial infarction s/p [facility] with PCI to the LAD with persistent cardiogenic shock and associated multiorgan failure. neurologic improvement is a very good sign overall. rewarmed as of 0300 on 04/22. clinically improving. remains in gross volume overload. will work towards extubation soon. continue forced diuresis. continues to be critically ill in shock on inotropes and persistent organ dysfunction. Plan by systems: Neurologic: Hypoxic ischemic encephalopathy- resolving. Frequent neurochecks EEG 04/20: generalized slowing, burst suppression, no ictal activity Propofol, fentanyl for goal RASS -2 Zyprexa to 5 mg via OG-tube daily on 04/23 Avoid long-acting sedatives s/p therapeutic hypothermia, target 34 degrees Celsius, rewarmed 0300 on 04/22 Respiratory: Acute hypoxic and hypercarbic respiratory failure Acute cardiogenic pulmonary edema Vent bundle Head of bed elevated Nebs prn Wean FiO2 for goal SPO2 greater than 90% continue daily SBTs Cardiovascular: Acute non-ST elevation myocardial infarction Out of hospital ventricular fibrillation cardiac arrest s/p [facility] with PCI to LAD 04/20 Cardiogenic Shock- persistent Ischemic Cardiomyopathy, acute EF < 20% Acute pulmonary hypertension Off heparin drip IABP discontinued on 04/22 hold off on lopressor today start lisinopril 5mg daily will consider weaning milrinone to 0.25 mcg/kg/min. Aspirin/Brilinta daily Cardiology consult: Dr. Bello change to amiodarone 400mg po BID. if she successfully extubates, can consider removing PA catheter. Renal: Acute kidney injury- resolved Likely secondary to poor perfusion from cardiac injury Daily BMP Temp sensing [place] -- Strict I/Os FEN/GI: Lactic acidosis- resolved ICU electrolyte protocol tube feeds Heme/ID: Leukocytosis/ Fever F/U sputum, blood, urine cultures: NGTD On unasyn for empiric antibiotic coverage daily CBC. Endocrine: Hyperglycemia of critical illness --SSI q6h. Prophylaxis: GI Prophylaxis Started Pepcid on 04/23 DVT Prophylaxis -- SCDs Off heparin drip since 04/22. Checking HIT screen prior to initiating subcutaneous Lovenox Lines: 04/20 right radial arterial line 04/20 [place] 04/20 right IJ introducer sheath 04/20 right IJ PA catheter 04/20 right femoral IABP-discontinued 04/22 Dispo: remain in ICU. remains critically ill. This patient remains critically ill with one or more organ systems which are or may become a threat to life. I have spent in excess of 31 minutes discontinuously in the care and management of this patient. This time is exclusive of procedures, and includes, but is not limited to, evaluation of the patient, review of the medical record, discussions with family, consultants, nursing staff, or respiratory therapy, and documentation in the medical record. Fernando Caldwell MD Apr 24, 2018 08:44
[2018-04-24] MEDS: ASPIRIN 81 MG CHEW TAB PO SCH (08:49)
[2018-04-24] MEDS: FUROSEMIDE 20 MG/2 ML VIAL IV PUSH SCH ×2 (08:49→17:37)
[2018-04-24] MEDS: SODIUM CHLORIDE 0.9% FLUSH 10 ML FLUSH IV FLUSH SCH ×2 (08:49→20:27)
[2018-04-24] MEDS ORDERED: OLANZapine ODT 5 MG TAB PO SCH (09:00)
[2018-04-24] MEDS: AMIODARONE 200 MG TAB PO SCH ×2 (09:43→20:26)
--- NOTE | 2018-04-24 10:45 | PD.CARD.PN ---
Subjective Subjective Remarks Intubated Objective Medications Current Medications Medications (Trade) Dose Ordered Sig/Chente Route Start Time Stop Time Status Last Admin Magnesium Sulfate 4 gm/Sodium Chloride 250 ml @ 62.5 mls/hr Q4H PRN IV 04/20/18 04:30 (Lacrilube Opht Oint) 1 applic Q4H PRN EACH EYE 04/20/18 04:30 (NS Flush) 2 ml BID IV FLUSH 04/20/18 09:00 04/24/18 08:49 (NS Flush) 2 ml UNSCH PRN IV FLUSH 04/20/18 04:30 Miscellaneous Information 0 ml @ 0 mls/hr UNSCH IV 04/20/18 04:30 ([facility] [place] [facility]) 1 Q361D XX 04/20/18 04:30 (Chlorhexidine 2% Cloth) 3 pack Taper DAILY@04 TOP 04/21/18 04:00 04/17/19 03:59 04/24/18 04:00 (Chlorhexidine 2% Cloth) 3 pack UNSCH PRN TOP 04/20/18 04:30 Potassium Chloride 100 ml @ 50 mls/hr Q2H PRN IV 04/20/18 04:30 04/20/18 19:00 Potassium Chloride 100 ml @ 50 mls/hr Q2H PRN IV 04/20/18 04:30 (K-Lyte Cl Eff) 50 meq UNSCH PRN PO 04/20/18 04:30 04/24/18 04:53 Potassium Chloride 100 ml @ 25 mls/hr UNSCH PRN IV 04/20/18 04:30 Potassium Chloride 100 ml @ 50 mls/hr Q2H PRN IV 04/20/18 04:30 Magnesium Sulfate 4 gm/Sodium Chloride 100 ml @ 50 mls/hr UNSCH PRN IV 04/20/18 04:30 (Mag-Ox) 800 mg UNSCH PRN PO 04/20/18 04:30 Magnesium Sulfate 2 gm/Sodium Chloride 100 ml @ 50 mls/hr UNSCH PRN IV 04/20/18 04:30 04/21/18 07:29 (K-Phos) 2,000 mg Q4H PRN PO 04/20/18 04:30 Sodium Phosphate 30 mmol/Sodium Chloride 250 ml @ 42 mls/hr UNSCH PRN IV 04/20/18 04:30 (K-Phos) 2,000 mg UNSCH PRN PO/TUBE 04/20/18 04:30 Potassium Phosphate 30 mmol/ Sodium Chloride 260 ml @ 42 mls/hr UNSCH PRN IV 04/20/18 04:30 (Peridex 0.12% Liq) 15 ml BID@08,20 MT 04/20/18 08:00 04/24/18 07:29 (Duoneb Neb) 1 ampule Q2HR NEB PRN INH 04/20/18 04:30 Propofol 100 ml @ 2.82 mls/hr TITRATE PRN IV 04/20/18 06:45 04/23/18 18:01 Fentanyl Citrate 250 ml @ 5 mls/hr TITRATE PRN IV 04/20/18 07:00 04/23/18 18:16 (Aspirin Chew) 81 mg DAILY PO 04/21/18 09:00 04/23/18 08:32 (Brilinta) 90 mg BID PO 04/20/18 21:00 04/24/18 07:45 (Lipitor) 40 mg DAILY PO 04/21/18 09:00 04/24/18 07:45 (Pill Splitter) 1 ea UNSCH PRN OTHER 04/20/18 10:30 Norepinephrine Bitartrate 16 mg/ Sodium Chloride 250 ml @ 1.87 mls/hr TITRATE PRN IV 04/20/18 23:00 Milrinone Lactate 20 mg/Sodium Chloride 100 ml @ 11.47 mls/ hr Q8H44M IV 04/21/18 09:46 04/23/18 19:00 Ampicillin Sodium/ Sulbactam Sodium 3 gm/Sodium Chloride 100 ml @ 200 mls/hr Q6H IV 04/22/18 09:00 04/24/18 08:51 (D50w (Vial) Inj) 25 ml UNSCH PRN IV PUSH 04/22/18 08:30 (NovoLIN R SUPPLEMENTAL SCALE) 1 Q6HR SQ 04/22/18 12:00 (Dilaudid Pf Inj) 0.5 mg Q1H PRN IV PUSH 04/22/18 09:45 04/22/18 13:45 (Lopressor) 12.5 mg Q8HR PO 04/23/18 14:00 Future Hold (Lasix Inj) 20 mg BID@ IV PUSH 04/23/18 11:00 04/23/18 17:48 (Prinivil) 2.5 mg DAILY PO 04/25/18 09:00 (Pepcid) 20 mg BID OG-TUBE 04/23/18 11:30 04/24/18 07:45 (KCl Powder) 20 meq Q12HR OG-TUBE 04/23/18 14:15 04/24/18 07:46 (Tylenol 650 Mg/ 20 ml Liq) 650 mg Q6H PO 04/23/18 20:00 04/25/18 18:30 04/24/18 07:45 (Duoneb Neb) 1 ampule Q6HR NEB INH 04/24/18 10:00 04/24/18 09:58 (Cordarone) 400 mg Q12HR PO 04/24/18 09:30 04/24/18 09:43 Vital Signs / I&O Vital Signs Date Time Temp Pulse Resp B/P (MAP) Pulse Ox O2 Delivery O2 Flow Rate FiO2 04/24/18 08:47 18 04/24/18 08:10 92 50 04/24/18 07:29 85 04/24/18 07:20 97 Mechanical Ventilator 40 04/24/18 07:18 40 04/24/18 07:17 85 04/24/18 07:15 99.7 85 20 129/72 (91) 97 170/89 (116) 04/24/18 06:00 85 96/59 (71) 102/71 (81) 04/24/18 05:50 85 96/59 04/24/18 03:00 92 Mechanical Ventilator 40 04/24/18 03:00 94 04/24/18 03:00 40 04/24/18 03:00 98.8 94 18 99/55 (70) 92 113/60 (77) 04/24/18 02:57 98 40 04/23/18 23:00 40 04/23/18 23:00 101 04/23/18 23:00 96 Mechanical Ventilator 40 04/23/18 23:00 99.6 101 18 103/48 (66) 96 106/61 (76) 04/23/18 20:35 98 40 04/23/18 19:00 94 Mechanical Ventilator 40 04/23/18 19:00 100.5 100 18 106/60 (75) 94 115/58 (77) 04/23/18 19:00 40 04/23/18 19:00 100 106/60 04/23/18 19:00 100 04/23/18 18:02 95 99/76 (84) 04/23/18 17:00 98 40 04/23/18 15:13 98 Mechanical Ventilator 40 04/23/18 15:12 101 04/23/18 15:12 40 04/23/18 15:11 100.8 101 18 98 90/58 (69) 04/23/18 11:14 95 45 04/23/18 11:08 45 04/23/18 11:08 120 04/23/18 11:08 96 Mechanical Ventilator 45 04/23/18 11:06 100.6 120 20 102/97 (99) 96 128/67 (87) 04/23/18 10:48 22 I/O 04/23/18 04/23/18 04/23/18 04/24/18 04/24/18 04/24/18 07:00 15:00 23:00 07:00 15:00 23:00 Intake Total 3617 ml 260 ml 1004 ml 1549 ml 100 ml Output Total 2500 ml 1890.0 ml 1955 ml Balance 1117 ml 260 ml -886.0 ml -406 ml 100 ml Intake Oral 0 ml IV Total 3041 ml 260 ml 598 ml 1069 ml 100 ml Tube Feeding 386 ml 406 ml 430 ml Other 190 ml 50 ml Output Urine Total 2500 ml 1700 ml 1835 ml Gastric Drainage Total 130 ml 120 ml Tube Feeding Residual Discard 60.0 ml # Bowel Movements 0 1 Physical Exam Moving all 4 extremities non-purposefully but responded to commands earlier Discussion with Dr. Caldwell Milrinone restarted after BP change last night Chest clear anteriorly but CHF on CXR (diuretic given) CV S1S2 RRR, Abd soft Ext: right groin OK, nl pedal pulses Laboratory Laboratory Tests Test 04/23/18 11:20 04/24/18 03:40 Procalcitonin 0.44 ng/mL White Blood Count 16.3 TH/MM3 Red Blood Count 3.15 MIL/MM3 Hemoglobin 9.4 GM/DL Hematocrit 28.0 % Mean Corpuscular Volume 88.7 FL Mean Corpuscular Hemoglobin 29.8 PG Mean Corpuscular Hemoglobin Concent 33.5 % Red Cell Distribution Width 14.6 % Platelet Count 86 TH/MM3 Mean Platelet Volume 8.6 FL Neutrophils (%) (Auto) 79.7 % Lymphocytes (%) (Auto) 16.5 % Monocytes (%) (Auto) 3.5 % Eosinophils (%) (Auto) 0.1 % Basophils (%) (Auto) 0.2 % Neutrophils # (Auto) 13.0 TH/MM3 Lymphocytes # (Auto) 2.7 TH/MM3 Monocytes # (Auto) 0.6 TH/MM3 Eosinophils # (Auto) 0.0 TH/MM3 Basophils # (Auto) 0.0 TH/MM3 CBC Comment AUTO DIFF Differential Comment AUTO DIFF CONFIRMED Platelet Estimate LOW Platelet Morphology Comment NORMAL Blood Urea Nitrogen 15 MG/DL Creatinine 0.75 MG/DL Random Glucose 91 MG/DL Total Protein 5.2 GM/DL Albumin 2.5 GM/DL Calcium Level 7.7 MG/DL Phosphorus Level 2.7 MG/DL Magnesium Level 2.3 MG/DL Alkaline Phosphatase 61 U/L Aspartate Amino Transf (AST/SGOT) 284 U/L Alanine Aminotransferase (ALT/SGPT) 80 U/L Total Bilirubin 0.7 MG/DL Sodium Level 152 MEQ/L Potassium Level 3.7 MEQ/L Chloride Level 116 MEQ/L Carbon Dioxide Level 29.4 MEQ/L Anion Gap 7 MEQ/L Estimat Glomerular Filtration Rate 82 ML/MIN B-Type Natriuretic Peptide 296 PG/ML Imaging Last 24 hours Impressions Chest X-Ray 04/24/18 0600 Signed Impressions: CONCLUSION: Right base consolidation/atelectasis and effusion. This appears worse compared to the prior exam. New mild area of suspected atelectasis or consolidation at the medial left base . Assessment and Plan Problem List: (1) Cardiogenic shock ICD Codes: R57.0 - Cardiogenic shock Plan: resolved. Mild CHF. Diuresis (2) Anterior wall myocardial infarction ICD Codes: I21.09 - ST elevation (STEMI) myocardial infarction involving other coronary artery of anterior wall (3) Stented coronary artery ICD Codes: Z95.5 - Presence of coronary angioplasty implant and graft Serafin Bello MD Apr 24, 2018 10:45
[2018-04-24 13:20] LABS: HEPARIN INDUCED PLATELET AB NEGATIVE (NEGATIVE)
[2018-04-24] MEDS: PROPOFOL 1000 MG/100 ML INJ 100 ML IV PRN (15:05)
[2018-04-25] VITALS (12 sets, daily range): BP systolic 108–165; BP diastolic 57–97; PULSE 74–102; RESP 18–24; TEMP 98.3–99.2; O2SAT 92–97
[2018-04-25] MEDS: ACETAMINOPHEN 650 MG/20.3 ML UDC PO SCH ×3 (02:54→14:13)
[2018-04-25] MEDS: AMPICILLIN-SULBACTAM INJ 3 GM in SODIUM CHLORIDE 0.9% INJ 100 ML IV SCH ×4 (02:55→20:36)
[2018-04-25] MEDS: RESP: ALBUTEROL 2.5 MG/IPRATROPIUM 0.5 MG NEB (SCH) INH ×4 (03:51→20:54)
[2018-04-25] MEDS: CHLORHEXIDINE GLUCONATE 2 % 1 PACK (2 CLOTHS) TOP SCH (04:00)
[2018-04-25 04:13] LABS: HEMATOCRIT 34.9 % (35.0-46.0); HEMOGLOBIN 11.3 GM/DL (11.6-15.3); MEAN CELL VOLUME 90.4 FL (80.0-100.0); MEAN CORPUSCULAR HEMOGLOBIN 29.2 PG (27.0-34.0); MEAN CORPUSCULAR HGB CONC 32.3 % (32.0-36.0); MEAN PLATELET VOLUME 8.5 FL (7.0-11.0); PLATELET COUNT 106 TH/MM3 (150-450); RED BLOOD COUNT 3.86 MIL/MM3 (4.00-5.30); WHITE BLOOD COUNT 11.9 TH/MM3 (4.0-11.0)
[2018-04-25 04:32] LABS: BICARBONATE 27.1 MEQ/L (21.0-32.0); CALCIUM 8.4 MG/DL (8.5-10.1); CREATININE 0.8 MG/DL (0.50-1.00); MAGNESIUM 2.7 MG/DL (1.5-2.5)
[2018-04-25] MEDS: INSULIN NovoLIN REGULAR SUPPLEMENTAL SCALE SQ SCH ×3 (06:00→18:00)
[2018-04-25] MEDS ORDERED: ALBUMIN 25% INJ 100 ML IV ONE (06:45)
--- NOTE | 2018-04-25 06:56 | HHI.CCPN ---
Subjective Remarks/Hospital Course Hospital Course: This is a 47yF with history of 2ppd tobacco use who presented on 04/18 with complaints of chest pain radiating to the back. she was diagnosed at that time with atypical chest pain and GERD and sent home with azithromycin, ciprofloxacin , famotidine, and omeprazole. Tonight, she again complained to her daughter of crushing substernal chest pain. EMS was called, but the patient collapsed. presenting rhythm was V. Fib. patient was defibrillated initially x 1 with ROSC but decompensated into v. fib again requiring multiple rounds of epi and defibrillation before ROSC was obtained. Per ER physician, she was ? following commands post arrest, but then had seizure-like activity and was given iv ativan. On my arrival to the ER, she has briskly reactive pupils, + cough, + gag. RUE is ?purposeful and questionably crossing midline. LUE appears to be extensor posturing. EKG post ROSC by EMS shows ST elevations in the precordial leads, but EKG on arrival to ED does not demonstrate ST elevations. bedside critical care echo demonstrates what appears to be anteroseptal hypokinesis which is regional. labs remarkable for trop 0.08. no additional information available from patient due to her clinical condition. ROS unobtainable. I discussed the case with Dr. Bello as well as Dr. Lynn. Dr. Lynn would like to stabilize the patient and take her urgently for [facility]. We both agree she is a good post-arrest induced hypothermia candidate, but until intervention is performed, will anticipate targeted temperature therapy targeting 36 degrees Celsius to mitigate any bleeding concerns. Patient taken to left heart cath today with large LAD thrombus which was successfully stented with good angiographic result. Patient is left coronary dominant. Post left heart cath, patient's EF by ventriculogram was 10% and patient was in cardiogenic shock. Intra-arterial balloon pump was placed. Patient was taken back to the CVICU. Patient had 2 more episodes of V. fib cardiac arrest which were successfully different related back into sinus rhythm. Despite maximal efforts, patient remains in florid cardiogenic shock with a lactate greater than 8 and significant multiorgan failure. I evaluated the patient at around 1830. She is mottled and poorly perfused. ScVo2 via central line is 30% despite IABP at 1-1. I had a long discussion with Dr. Bello who consulted with Dr. Lynn: They both feel that the patient's vascular anatomy is not amenable to placement of percutaneous left ventricular assist device, and mechanically we have nothing additional to offer the patient except for intra-arterial balloon pump. I long conversation with the family where I conveyed how critically ill she was and her poor prognosis if her ventricular function did not improve. I placed right IJ introducer sheath and PA catheter to monitor continuous cardiac output and filling pressures (see separate procedure note for details and hemodynamic data). By [place] she has a mixed venous sat of 58% and a cardiac index of 1.2. I started isoproterenol at 5 mcg/min and added vasopressin 0.04 U/min. She is already on Levophed at 30 mcg/min and epinephrine at 10 mcg/min. Lactate continues to up trend. She is severely hypokalemic with a potassium of 1.9 and acidotic with a pH of 7.19. Subjective: 04/21: remains critically ill in shock. lactate clearing to 3.3 from peak of 8. uop adequate. remains on IABP 1:1, isuprel at 8 mcg/min, epi at 5 mcg/min. intermittent cleviprex to keep sbp 110 - 130. remains hypothermic. PCWP 20 this AM. CI 1.5 despite high-dose inotropes. 04/22: awakens and follows commands. neuro intact. remains in shock. on epi at 3 mcg/min, off isuprel. milrinone at 0.375 mcg/kg/min. cardiac index has improved to 3.7. filling pressures remain stable. warm at 3am. somewhat agitated despite fentanyl, propofol. 04/23: Sedated, arousable, orally intubated on mechanical ventilation currently. Moving spontaneously trying to reach for ET tube. Off all pressors. Milrinone stop this morning. Coming down on vent settings, PEEP decreased to +5 FiO2 50% . Being started on beta-delbert per cardiology. Will add lisinopril 2.5 mg daily later today. Continue diuresis. Low-grade temperature 100.8 noted. 04/24: filling pressures continue to rise despite diuretic therapy. cardiac index remains acceptable. on SBT today. wbc downtrending. fever overnight likely rebound hyperthermia. 04/25: off inotropes. off vasopressors. excellent diuresis yesterday with net -6L/ 24h. wbc downtrending and afebrile overnight. Objective Vital Signs Date Time Temp Pulse Resp B/P (MAP) Pulse Ox O2 Delivery O2 Flow Rate FiO2 04/25/18 06:00 80 108/60 (76) 115/57 (76) 04/25/18 03:54 18 04/25/18 03:53 97 40 04/25/18 03:00 Mechanical Ventilator 04/25/18 03:00 99.2 04/22/18 07:00 2.00 Intake and Output 04/25/18 04/25/18 04/26/18 08:00 16:00 00:00 Intake Total 1423 ml Output Total 2695 ml Balance -1272 ml Result Diagram: 04/25/18 0400 04/25/18 0400 Other Results Microbiology Date/Time Source Procedure Growth Status 04/22/18 08:08 Sputum Endotracheal Gram Stain - Final Complete 04/22/18 08:08 Sputum Endotracheal Sputum Culture - Final LIGHT GROWTH NORMAL RESPIRATORY SHERIF Complete 04/22/18 08:08 Urine Catheterized Urine Urine Culture - Final NO GROWTH IN 48 HOURS. Complete Imaging Last Impressions Head CT 04/20/18 0430 Signed Impressions: CONCLUSION: Unremarkable study. Chest X-Ray 04/20/18 0345 Signed Impressions: CONCLUSION: No acute cardiopulmonary disease. Objective Remarks GENERAL: Middle-aged appearing female, lying in bed, intubated HEENT: Normocephalic. Atraumatic. Pupils 4 mm, equal, round, briskly reactive , conjugate. Mucous membranes are moist NECK: Trachea is midline. There is no JVD. right IJ introducer sheath in place , site clean/dry/intact. CHEST: Equal chest rise. on PSV 5/5/40% this AM. CARDIOVASCULAR: normal rate of 87, regular rhythm. Sinus. CVP 4. ABDOMEN: Soft, nontender, nondistended. No guarding. MUSCULOSKELETAL: Pulses 2+. No peripheral edema. NEUROLOGICAL: RASS -2. awakens and follows commands x 4. moves all extremities spontaneously. no focal deficits. PA catheter removed during my exam today, slick placed in introducer. no complications noted. A/P Assessment and Plan Assessment: 47-year-old female with acute myocardial infarction s/p C with PCI to the LAD with persistent myocardial dysfunction. shock and multiorgan failure are resolving. neurologic function returning. failed SBT yesterday: will attempt again today. Plan by systems: Neurologic: Hypoxic ischemic encephalopathy- resolving. Frequent neurochecks EEG 04/20: generalized slowing, burst suppression, no ictal activity Propofol, fentanyl for goal RASS -2 Zyprexa 5 mg daily Avoid long-acting sedatives s/p therapeutic hypothermia, target 34 degrees Celsius, rewarmed 0300 on 04/22 Respiratory: Acute hypoxic and hypercarbic respiratory failure Acute cardiogenic pulmonary edema- resolving. Vent bundle Head of bed elevated Nebs prn Wean FiO2 for goal SPO2 greater than 90% continue daily SBTs Cardiovascular: Acute non-ST elevation myocardial infarction Out of hospital ventricular fibrillation cardiac arrest s/p LHC with PCI to LAD 04/20 Cardiogenic Shock- resolved Ischemic Cardiomyopathy, acute EF < 20% Acute pulmonary hypertension- resolved Off heparin drip IABP discontinued on 04/22 restart lopressor 12.5mg po q8h this afternoon. continue lisinopril 2.5mg daily Aspirin/Brilinta daily Cardiology consult: Dr. Bello amiodarone 400mg po BID. Renal: Acute kidney injury- resolved Likely secondary to poor perfusion from cardiac injury Daily BMP Temp sensing Ordonez -- Strict I/Os FEN/GI: Lactic acidosis- resolved Acute metabolic alkalosis- secondary to contraction ICU electrolyte protocol tube feeds continue lasix 20mg iv q12h diamox 250mg iv x 1 Heme/ID: Leukocytosis/ Fever- resolving. Thrombocytopenia F/U sputum, blood, urine cultures: NGTD On unasyn for empiric antibiotic coverage, will complete 7 day course ( anticipated stop date 04/28) daily CBC. low plt likely secondary to shock, now resolving HIT panel negative. Endocrine: Hyperglycemia of critical illness --SSI q6h. Prophylaxis: GI Prophylaxis Pepcid DVT Prophylaxis -- SCDs HIT screen negative. start lovenox today. Lines: 04/20 right radial arterial line: keep today. 04/20 [place]donez 04/20 right IJ introducer sheath 04/20 right IJ PA catheter- d/c 04/25 04/20 right femoral IABP-discontinued 04/22 04/20 left femoral cooling catheter- d/c 04/21 Dispo: remain in ICU. remains critically ill. Fernando Caldwell MD Apr 25, 2018 06:56
[2018-04-25] MEDS: SODIUM CHLORIDE 0.9% FLUSH 10 ML FLUSH IV FLUSH SCH ×2 (07:26→21:00)
[2018-04-25] MEDS: CHLORHEXIDINE 0.12% (ORAL KIT) 15 ML CUP MT SCH ×2 (08:06→20:00)
[2018-04-25] MEDS ORDERED: LISINOPRIL 5 MG TAB PO SCH (09:00)
[2018-04-25] MEDS: ENOXAPARIN SODIUM 40 MG/0.4 ML SYRINGE SQ SCH (09:47)
[2018-04-25] MEDS ORDERED: HALOPERIDOL LACTATE 5 MG/ML AMP IV PUSH ONE (10:15)
--- NOTE | 2018-04-25 11:09 | PD.CARD.PN ---
Subjective Subjective Remarks alert, no chest pain Objective Medications Current Medications Medications (Trade) Dose Ordered Sig/Chente Route Start Time Stop Time Status Last Admin Magnesium Sulfate 4 gm/Sodium Chloride 250 ml @ 62.5 mls/hr Q4H PRN IV 04/20/18 04:30 (Lacrilube Opht Oint) 1 applic Q4H PRN EACH EYE 04/20/18 04:30 (NS Flush) 2 ml BID IV FLUSH 04/20/18 09:00 04/25/18 07:26 (NS Flush) 2 ml UNSCH PRN IV FLUSH 04/20/18 04:30 Miscellaneous Information 0 ml @ 0 mls/hr UNSCH IV 04/20/18 04:30 [place] [place] [facility] [place] 1 Q361D XX 04/20/18 04:30 (Chlorhexidine 2% Cloth) 3 pack Taper DAILY@04 TOP 04/21/18 04:00 04/17/19 03:59 04/25/18 04:00 (Chlorhexidine 2% Cloth) 3 pack UNSCH PRN TOP 04/20/18 04:30 Potassium Chloride 100 ml @ 50 mls/hr Q2H PRN IV 04/20/18 04:30 04/20/18 19:00 Potassium Chloride 100 ml @ 50 mls/hr Q2H PRN IV 04/20/18 04:30 (K-Lyte Cl Eff) 50 meq UNSCH PRN PO 04/20/18 04:30 04/24/18 04:53 Potassium Chloride 100 ml @ 25 mls/hr UNSCH PRN IV 04/20/18 04:30 Potassium Chloride 100 ml @ 50 mls/hr Q2H PRN IV 04/20/18 04:30 Magnesium Sulfate 4 gm/Sodium Chloride 100 ml @ 50 mls/hr UNSCH PRN IV 04/20/18 04:30 (Mag-Ox) 800 mg UNSCH PRN PO 04/20/18 04:30 Magnesium Sulfate 2 gm/Sodium Chloride 100 ml @ 50 mls/hr UNSCH PRN IV 04/20/18 04:30 04/21/18 07:29 (K-Phos) 2,000 mg Q4H PRN PO 04/20/18 04:30 Sodium Phosphate 30 mmol/Sodium Chloride 250 ml @ 42 mls/hr UNSCH PRN IV 04/20/18 04:30 (K-Phos) 2,000 mg UNSCH PRN PO/TUBE 04/20/18 04:30 Potassium Phosphate 30 mmol/ Sodium Chloride 260 ml @ 42 mls/hr UNSCH PRN IV 04/20/18 04:30 (Peridex 0.12% Liq) 15 ml BID@08,20 MT 04/20/18 08:00 04/25/18 08:06 (Duoneb Neb) 1 ampule Q2HR NEB PRN INH 04/20/18 04:30 (Aspirin Chew) 81 mg DAILY PO 04/21/18 09:00 04/23/18 08:32 (Brilinta) 90 mg BID PO 04/20/18 21:00 04/24/18 20:27 (Lipitor) 40 mg DAILY PO 04/21/18 09:00 04/24/18 07:45 (Pill Splitter) 1 ea UNSCH PRN OTHER 04/20/18 10:30 Ampicillin Sodium/ Sulbactam Sodium 3 gm/Sodium Chloride 100 ml @ 200 mls/hr Q6H IV 04/22/18 09:00 04/28/18 09:00 04/25/18 10:36 (D50w (Vial) Inj) 25 ml UNSCH PRN IV PUSH 04/22/18 08:30 (NovoLIN R SUPPLEMENTAL SCALE) 1 Q6HR SQ 04/22/18 12:00 (Dilaudid Pf Inj) 0.5 mg Q1H PRN IV PUSH 04/22/18 09:45 04/22/18 13:45 (Lopressor) 12.5 mg Q8HR PO 04/23/18 14:00 Future hold (Prinivil) 2.5 mg DAILY PO 04/25/18 09:00 (Pepcid) 20 mg BID OG-TUBE 04/23/18 11:30 04/24/18 20:26 (KCl Powder) 20 meq Q12HR OG-TUBE 04/23/18 14:15 04/24/18 20:26 (Tylenol 650 Mg/ 20 ml Liq) 650 mg Q6H PO 04/23/18 20:00 04/25/18 18:30 04/25/18 07:27 (Duoneb Neb) 1 ampule Q6HR NEB INH 04/24/18 10:00 6/4/18 08:59 (Cordarone) 400 mg Q12HR PO 04/24/18 09:30 04/24/18 20:26 (Lovenox Inj) 40 mg Q24H SQ 04/25/18 08:00 04/25/18 09:47 (Lasix) 20 mg BID@09,18 PO 04/25/18 09:00 Vital Signs / I&O Vital Signs Date Time Temp Pulse Resp B/P (MAP) Pulse Ox O2 Delivery O2 Flow Rate FiO2 04/25/18 08:43 92 Nasal Cannula 4.00 04/25/18 08:25 94 Nasal Cannula 2.00 04/25/18 08:25 92 Nasal Cannula 4 04/25/18 07:00 80 04/25/18 07:00 98.8 91 24 148/90 (109) 97 165/91 (115) 04/25/18 07:00 97 Mechanical Ventilator 2.00 40 04/25/18 07:00 40 04/25/18 06:00 80 108/60 (76) 115/57 (76) 04/25/18 03:54 18 04/25/18 03:53 97 40 04/25/18 03:00 40 04/25/18 03:00 95 Mechanical Ventilator 40 04/25/18 03:00 82 04/25/18 03:00 99.2 82 18 109/68 (82) 95 113/58 (76) 04/24/18 23:00 94 Mechanical Ventilator 40 04/24/18 23:00 40 04/24/18 23:00 99.5 85 18 109/63 (78) 94 115/68 (84) 04/24/18 23:00 85 04/24/18 22:57 96 40 04/24/18 20:30 96 40 04/24/18 19:00 82 04/24/18 19:00 99.5 82 18 104/59 (74) 95 108/64 (79) 04/24/18 19:00 95 Mechanical Ventilator 40 04/24/18 19:00 40 04/24/18 18:01 82 108/71 (83) 04/24/18 16:35 97 40 04/24/18 15:03 45 04/24/18 15:03 95 Mechanical Ventilator 45 04/24/18 15:02 98 04/24/18 15:01 99.9 98 18 95 117/66 (83) 04/24/18 12:12 50 04/24/18 12:05 98 55 04/24/18 11:51 107 04/24/18 11:50 107 04/24/18 11:09 94 Mechanical Ventilator 70 04/24/18 11:08 112 04/24/18 11:08 70 04/24/18 11:07 100.3 112 16 94 111/66 (81) I/O 04/24/18 04/24/18 04/24/18 04/25/18 04/25/18 04/25/18 07:00 15:00 23:00 07:00 15:00 23:00 Intake Total 1549 ml 482 ml 1172 ml 1423 ml 100 ml Output Total 1955 ml 6630.0 ml 2695 ml Balance -406 ml 482 ml -5458.0 ml -1272 ml 100 ml IV Total 1069 ml 482 ml 627 ml 728 ml 100 ml Tube Feeding 430 ml 545 ml 645 ml Tube Irrigant 50 ml Other 50 ml Output Urine Total 1835 ml 6450 ml 2600 ml Gastric Drainage Total 120 ml 70 ml 95 ml Tube Feeding Residual Discard 110.0 ml # Bowel Movements 0 0 Physical Exam Alert, NAD Chest clear CV S1S2 RRR Abd soft ext no edema, perfusing well Laboratory Laboratory Tests Test 04/25/18 04:00 White Blood Count 11.9 TH/MM3 Red Blood Count 3.86 MIL/MM3 Hemoglobin 11.3 GM/DL Hematocrit 34.9 % Mean Corpuscular Volume 90.4 FL Mean Corpuscular Hemoglobin 29.2 PG Mean Corpuscular Hemoglobin Concent 32.3 % Red Cell Distribution Width 15.0 % Platelet Count 106 TH/MM3 Mean Platelet Volume 8.5 FL Blood Urea Nitrogen 15 MG/DL Creatinine 0.80 MG/DL Random Glucose 82 MG/DL Calcium Level 8.4 MG/DL Phosphorus Level 5.0 MG/DL Magnesium Level 2.7 MG/DL Sodium Level 152 MEQ/L Potassium Level 4.1 MEQ/L Chloride Level 117 MEQ/L Carbon Dioxide Level 27.1 MEQ/L Anion Gap 8 MEQ/L Estimat Glomerular Filtration Rate 77 ML/MIN Assessment and Plan Problem List: (1) Cardiogenic shock ICD Codes: R57.0 - Cardiogenic shock Status: Resolved (2) Anterior wall myocardial infarction ICD Codes: I21.09 - ST elevation (STEMI) myocardial infarction involving other coronary artery of anterior wall (3) Stented coronary artery ICD Codes: Z95.5 - Presence of coronary angioplasty implant and graft Assessment and Plan IV enalapril Serafin Bello MD Apr 25, 2018 11:09
[2018-04-25] MEDS: ASPIRIN 81 MG CHEW TAB PO SCH (11:17)
[2018-04-25] MEDS: TICAGRELOR 90 MG TAB PO SCH ×2 (11:17→20:36)
[2018-04-25] MEDS: ENALAPRILAT 1.25 MG/ML VIAL IV PUSH SCH ×2 (11:30→16:46)
[2018-04-25] MEDS: FAMOTIDINE 20 MG TAB OG-TUBE SCH ×2 (11:33→20:36)
[2018-04-25] MEDS: POTASSIUM CHLORIDE 20 MEQ PWD PACKET OG-TUBE SCH ×2 (11:34→20:36)
[2018-04-25] MEDS: ATORVASTATIN 40 MG TAB PO SCH (11:34)
[2018-04-25] MEDS: AMIODARONE 200 MG TAB PO SCH ×2 (11:34→20:36)
[2018-04-25] MEDS: FUROSEMIDE 20 MG TAB PO SCH ×2 (11:35→18:20)
[2018-04-25] MEDS ORDERED: DEXMEDETOMIDINE 200 MCG/50 ML Premix IV PRN (13:15)
[2018-04-25] MEDS ORDERED: DEXMEDETOMIDINE 200 MCG in NS 48 ML IV PRN (13:15)
--- NOTE | 2018-04-25 13:45 | HHI.FF ---
Face to Face Verification Diagnosis: (1) Cardiopulmonary arrest with successful resuscitation (2) Hypoxic encephalopathy (3) Cardiogenic shock (4) Anterior wall myocardial infarction (5) Stented coronary artery Physical Therapy Order: Evaluate and Treat, Improve ambulation, Strength and gait training Occupational Therapy Order: Evaluate and Treat, Improve ADL, Gross motor coordination, Fine motor coordination Speech Therapy Order: To Improve: Speech and communication skills, Cognitive skills, Swallowing Home Health Nursing Order: Medical education Signs/symptoms of disease process CHF education Home Health Aide Order: To Assist In: Bathing and personal care Gauger Chief Delivery Order: To Evaluate: Living conditions/environment, Support services I have seen patient Florina Castillo on 04/25/18. My clinical findings support the need for the requested home health care services because: Ltd mobility - disease progression Deconditioned w/ increased weakness Med compliance is questionable Limited ability to care for self Impaired cognition/judgement High risk of falls I certify that my clinical findings support that this patient is homebound because: Post-op weakness Impaired cognitive ability/safety Unsteady gait/balance Need for psychosocial assistance Poor cardiac reserve Fernando Caldwell MD Apr 25, 2018 13:45
[2018-04-25] MEDS: METOPROLOL TARTRATE 25 MG TAB PO SCH ×2 (14:35→20:36)
[2018-04-26] VITALS (11 sets, daily range): BP systolic 118–136; BP diastolic 73–89; PULSE 78–105; RESP 19–22; TEMP 98.2–99; O2SAT 93–97
[2018-04-26] MEDS: AMPICILLIN-SULBACTAM INJ 3 GM in SODIUM CHLORIDE 0.9% INJ 100 ML IV SCH ×4 (03:22→20:57)
[2018-04-26] MEDS: ENALAPRILAT 1.25 MG/ML VIAL IV PUSH SCH (03:23)
[2018-04-26] MEDS: CHLORHEXIDINE GLUCONATE 2 % 1 PACK (2 CLOTHS) TOP SCH (04:00)
[2018-04-26] MEDS: RESP: ALBUTEROL 2.5 MG/IPRATROPIUM 0.5 MG NEB (SCH) INH ×4 (04:12→22:07)
[2018-04-26 05:16] LABS: HEMATOCRIT 38.4 % (35.0-46.0); MEAN CELL VOLUME 88.7 FL (80.0-100.0); MEAN CORPUSCULAR HEMOGLOBIN 29.9 PG (27.0-34.0); MEAN CORPUSCULAR HGB CONC 33.7 % (32.0-36.0); MEAN PLATELET VOLUME 8.7 FL (7.0-11.0); PLATELET COUNT 122 TH/MM3 (150-450); RED BLOOD COUNT 4.33 MIL/MM3 (4.00-5.30); RED CELL DISTRIBUTION WIDTH 14.5 % (11.6-17.2); WHITE BLOOD COUNT 10.1 TH/MM3 (4.0-11.0)
[2018-04-26 05:50] LABS: CALCIUM 9.2 MG/DL (8.5-10.1); CREATININE 0.81 MG/DL (0.50-1.00); MAGNESIUM 2.2 MG/DL (1.5-2.5); PHOSPHORUS 3.8 MG/DL (2.5-4.9)
[2018-04-26] MEDS: INSULIN NovoLIN REGULAR SUPPLEMENTAL SCALE SQ SCH ×4 (06:00→17:07)
[2018-04-26] MEDS: METOPROLOL TARTRATE 25 MG TAB PO SCH ×3 (06:20→20:53)
[2018-04-26] MEDS: POTASSIUM CHLORIDE 25 MEQ EFFERVESCENT TAB PO PRN (06:20)
--- NOTE | 2018-04-26 06:41 | HHI.CCPN ---
Subjective Remarks/Hospital Course Hospital Course: This is a 47yF with history of 2ppd tobacco use who presented on 04/18 with complaints of chest pain radiating to the back. she was diagnosed at that time with atypical chest pain and GERD and sent home with azithromycin, ciprofloxacin , famotidine, and omeprazole. Tonight, she again complained to her daughter of crushing substernal chest pain. EMS was called, but the patient collapsed. presenting rhythm was V. Fib. patient was defibrillated initially x 1 with ROSC but decompensated into v. fib again requiring multiple rounds of epi and defibrillation before ROSC was obtained. Per ER physician, she was ? following commands post arrest, but then had seizure-like activity and was given iv ativan. On my arrival to the ER, she has briskly reactive pupils, + cough, + gag. RUE is ?purposeful and questionably crossing midline. LUE appears to be extensor posturing. EKG post ROSC by EMS shows ST elevations in the precordial leads, but EKG on arrival to ED does not demonstrate ST elevations. bedside critical care echo demonstrates what appears to be anteroseptal hypokinesis which is regional. labs remarkable for trop 0.08. no additional information available from patient due to her clinical condition. ROS unobtainable. I discussed the case with Dr. Bello as well as Dr. Lynn. Dr. Lynn would like to stabilize the patient and take her urgently for [facility]. We both agree she is a good post-arrest induced hypothermia candidate, but until intervention is performed, will anticipate targeted temperature therapy targeting 36 degrees Celsius to mitigate any bleeding concerns. Patient taken to left heart cath today with large LAD thrombus which was successfully stented with good angiographic result. Patient is left coronary dominant. Post left heart cath, patient's EF by ventriculogram was 10% and patient was in cardiogenic shock. Intra-arterial balloon pump was placed. Patient was taken back to the CVICU. Patient had 2 more episodes of V. fib cardiac arrest which were successfully different related back into sinus rhythm. Despite maximal efforts, patient remains in florid cardiogenic shock with a lactate greater than 8 and significant multiorgan failure. I evaluated the patient at around 1830. She is mottled and poorly perfused. ScVo2 via central line is 30% despite IABP at 1-1. I had a long discussion with Dr. Bello who consulted with Dr. Lynn: They both feel that the patient's vascular anatomy is not amenable to placement of percutaneous left ventricular assist device, and mechanically we have nothing additional to offer the patient except for intra-arterial balloon pump. I long conversation with the family where I conveyed how critically ill she was and her poor prognosis if her ventricular function did not improve. I placed right IJ introducer sheath and PA catheter to monitor continuous cardiac output and filling pressures (see separate procedure note for details and hemodynamic data). By [place] she has a mixed venous sat of 58% and a cardiac index of 1.2. I started isoproterenol at 5 mcg/min and added vasopressin 0.04 U/min. She is already on Levophed at 30 mcg/min and epinephrine at 10 mcg/min. Lactate continues to up trend. She is severely hypokalemic with a potassium of 1.9 and acidotic with a pH of 7.19. Subjective: 04/21: remains critically ill in shock. lactate clearing to 3.3 from peak of 8. uop adequate. remains on IABP 1:1, isuprel at 8 mcg/min, epi at 5 mcg/min. intermittent cleviprex to keep sbp 110 - 130. remains hypothermic. PCWP 20 this AM. CI 1.5 despite high-dose inotropes. 04/22: awakens and follows commands. neuro intact. remains in shock. on epi at 3 mcg/min, off isuprel. milrinone at 0.375 mcg/kg/min. cardiac index has improved to 3.7. filling pressures remain stable. warm at 3am. somewhat agitated despite fentanyl, propofol. 04/23: Sedated, arousable, orally intubated on mechanical ventilation currently. Moving spontaneously trying to reach for ET tube. Off all pressors. Milrinone stop this morning. Coming down on vent settings, PEEP decreased to +5 FiO2 50% . Being started on beta-delbert per cardiology. Will add lisinopril 2.5 mg daily later today. Continue diuresis. Low-grade temperature 100.8 noted. 04/24: filling pressures continue to rise despite diuretic therapy. cardiac index remains acceptable. on SBT today. wbc downtrending. fever overnight likely rebound hyperthermia. 04/25: off inotropes. off vasopressors. excellent diuresis yesterday with net -6L/ 24h. wbc downtrending and afebrile overnight. 04/26: doing well. extubated yesterday. still has some agitated delirium requiring Precedex infusion. endorses sore throat this morning. remainder of ROS negative. Objective Vital Signs Date Time Temp Pulse Resp B/P (MAP) Pulse Ox O2 Delivery O2 Flow Rate FiO2 04/26/18 03:00 81 04/26/18 03:00 98.2 22 135/84 (101) 94 04/26/18 03:00 Nasal Cannula 2.00 04/25/18 07:00 40 Intake and Output 04/26/18 04/26/18 04/27/18 08:00 16:00 00:00 Intake Total 580 ml Output Total 2300 ml Balance -1720 ml Result Diagram: 04/26/18 0402 04/26/18 0402 Imaging Last Impressions Head CT 04/20/18 0430 Signed Impressions: CONCLUSION: Unremarkable study. Chest X-Ray 04/20/18 0345 Signed Impressions: CONCLUSION: No acute cardiopulmonary disease. Objective Remarks GENERAL: Middle-aged appearing female, lying in bed, awake, in no acute distress. HEENT: Normocephalic. Atraumatic. Pupils 4 mm, equal, round, briskly reactive , conjugate. Mucous membranes are moist NECK: Trachea is midline. There is no JVD. CHEST: Equal chest rise. 2L o2 by NC. unlabored. CARDIOVASCULAR: normal rate of 82, regular rhythm. Sinus. ABDOMEN: Soft, nontender, nondistended. No guarding. MUSCULOSKELETAL: Pulses 2+. No peripheral edema. NEUROLOGICAL: RASS 0. calm and alert. on 0.3 mcg/kg/hr precedex. follows commands. no focal deficits. A/P Assessment and Plan Assessment: 47-year-old female with acute myocardial infarction s/p [facility] with PCI to the LAD with resolving myocardial dysfunction. shock and multiorgan failure have resolved. neurologic function returning. agitated delirium continues to be a problem. will add zyprexa today and attempt to wean off precedex. Plan by systems: Neurologic: Hypoxic ischemic encephalopathy- resolving. EEG 04/20: generalized slowing, burst suppression, no ictal activity Zyprexa 5 mg q8h wean precedex as tolerated. Avoid long-acting sedatives Cog eval today. s/p therapeutic hypothermia, target 34 degrees Celsius, rewarmed 0300 on 04/22 Respiratory: Acute hypoxic and hypercarbic respiratory failure- resolving. Acute cardiogenic pulmonary edema- resolved Head of bed elevated Nebs prn wean o2 by [place] for goal spo2 > 90% aggressive pulmonary toilet. OOB. PT/OT consults. Cardiovascular: Acute non-ST elevation myocardial infarction Out of hospital ventricular fibrillation cardiac arrest s/p [facility] with PCI to LAD 04/20 Cardiogenic Shock- resolved Ischemic Cardiomyopathy, acute EF < 20%- resolving. Acute pulmonary hypertension- resolved Off heparin drip IABP discontinued on 04/22 lopressor 12.5mg po q8h- could consider going up on this slowly increase lisinopril to 5mg daily started on enalapril by Dr. Bello: would prefer to transition this to lisinopril for ease of daily PO dosing. will leave that up to Dr. Bello. Aspirin/Brilinta daily Cardiology consult: Dr. Bello amiodarone 400mg po BID: will order taper- 400 BID x 7 days, 200 BID x 7 days, 200 daily x 7 days, then off. no evidence to suggest she will need long-term amiodarone therapy. Renal: Acute kidney injury- resolved Likely secondary to poor perfusion from cardiac injury Daily BMP voiding on her own. -- Strict I/Os FEN/GI: Lactic acidosis- resolved Acute metabolic alkalosis- secondary to contraction- resolved. ICU electrolyte protocol passed for regular diet. continue lasix 20mg po q12h Heme/ID: Leukocytosis/ Fever- resolved Thrombocytopenia- resolving. F/U sputum, blood, urine cultures: NGTD On unasyn for empiric antibiotic coverage, will complete 7 day course ( anticipated stop date 04/28) daily CBC. low plt likely secondary to shock, now resolving HIT panel negative. Endocrine: Hyperglycemia of critical illness --SSI q6h. Prophylaxis: GI Prophylaxis Pepcid DVT Prophylaxis -- SCDs lovenox Lines: PIVs only. 04/20 right radial arterial line- d/c 04/25 04/20 Ordonez- d/c 04/25 04/20 right IJ introducer sheath- d/c 04/25 04/20 right IJ PA catheter- d/c 04/25 04/20 right femoral IABP-discontinued 04/22 04/20 left femoral cooling catheter- d/c 04/21 Dispo: if we can wean her off precedex, can transition out of ICU. have asked case management to start working on inpatient rehab vs. home with home health care. Fernando Caldwell MD Apr 26, 2018 06:41
[2018-04-26] MEDS ORDERED: PHENOL 1.4% SOLN 180 ML BTL OROPHARYNG PRN (06:45)
[2018-04-26] MEDS: CHLORHEXIDINE 0.12% (ORAL KIT) 15 ML CUP MT SCH ×2 (07:16→20:00)
[2018-04-26] MEDS: OLANZapine ODT 5 MG TAB PO SCH ×3 (07:37→20:53)
[2018-04-26] MEDS: ENOXAPARIN SODIUM 40 MG/0.4 ML SYRINGE SQ SCH (07:37)
[2018-04-26] MEDS: SODIUM CHLORIDE 0.9% FLUSH 10 ML FLUSH IV FLUSH SCH ×2 (08:29→20:57)
[2018-04-26] MEDS: POTASSIUM CHLORIDE 20 MEQ PWD PACKET OG-TUBE SCH ×2 (08:29→20:57)
[2018-04-26] MEDS: AMIODARONE 200 MG TAB PO SCH ×2 (08:29→20:53)
[2018-04-26] MEDS: FUROSEMIDE 20 MG TAB PO SCH ×2 (08:29→17:25)
[2018-04-26] MEDS: ATORVASTATIN 40 MG TAB PO SCH (08:30)
[2018-04-26] MEDS: TICAGRELOR 90 MG TAB PO SCH ×2 (08:30→20:53)
[2018-04-26] MEDS: FAMOTIDINE 20 MG TAB OG-TUBE SCH ×2 (08:30→20:53)
[2018-04-26] MEDS: ASPIRIN 81 MG CHEW TAB PO SCH (08:30)
[2018-04-26] MEDS ORDERED: LISINOPRIL 5 MG TAB PO SCH (09:00)
--- NOTE | 2018-04-26 09:55 | PD.CARD.PN ---
Subjective Subjective Remarks alert, no chest pain Objective Medications Current Medications Medications (Trade) Dose Ordered Sig/Chente Route Start Time Stop Time Status Last Admin Magnesium Sulfate 4 gm/Sodium Chloride 250 ml @ 62.5 mls/hr Q4H PRN IV 04/20/18 04:30 (Lacrilube Opht Oint) 1 applic Q4H PRN EACH EYE 04/20/18 04:30 (NS Flush) 2 ml BID IV FLUSH 04/20/18 09:00 04/26/18 08:29 (NS Flush) 2 ml UNSCH PRN IV FLUSH 04/20/18 04:30 Miscellaneous Information 0 ml @ 0 mls/hr UNSCH IV 04/20/18 04:30 ([facility]) 1 Q361D XX 04/20/18 04:30 (Chlorhexidine 2% Cloth) Taper DAILY@04 TOP 04/21/18 04:00 04/17/19 03:59 04/26/18 04:00 (Chlorhexidine 2% Cloth) 3 pack UNSCH PRN TOP 04/20/18 04:30 Potassium Chloride 100 ml @ 50 mls/hr Q2H PRN IV 04/20/18 04:30 04/20/18 19:00 Potassium Chloride 100 ml @ 50 mls/hr Q2H PRN IV 04/20/18 04:30 (K-Lyte Cl Eff) 50 meq UNSCH PRN PO 04/20/18 04:30 04/26/18 06:20 Potassium Chloride 100 ml @ 25 mls/hr UNSCH PRN IV 04/20/18 04:30 Potassium Chloride 100 ml @ 50 mls/hr Q2H PRN IV 04/20/18 04:30 Magnesium Sulfate 4 gm/Sodium Chloride 100 ml @ 50 mls/hr UNSCH PRN IV 04/20/18 04:30 (Mag-Ox) 800 mg UNSCH PRN PO 04/20/18 04:30 Magnesium Sulfate 2 gm/Sodium Chloride 100 ml @ 50 mls/hr UNSCH PRN IV 04/20/18 04:30 04/21/18 07:29 (K-Phos) 2,000 mg Q4H PRN PO 04/20/18 04:30 Sodium Phosphate 30 mmol/Sodium Chloride 250 ml @ 42 mls/hr UNSCH PRN IV 04/20/18 04:30 (K-Phos) 2,000 mg UNSCH PRN PO/TUBE 04/20/18 04:30 Potassium Phosphate 30 mmol/ Sodium Chloride 260 ml @ 42 mls/hr UNSCH PRN IV 04/20/18 04:30 (Peridex 0.12% Liq) 15 ml BID@08,20 MT 04/20/18 08:00 04/25/18 08:06 (Duoneb Neb) 1 ampule Q2HR NEB PRN INH 04/20/18 04:30 (Aspirin Chew) 81 mg DAILY PO 04/21/18 09:00 04/26/18 08:30 (Brilinta) 90 mg BID PO 04/20/18 21:00 04/26/18 08:30 (Lipitor) 40 mg DAILY PO 04/21/18 09:00 04/26/18 08:30 (Pill Splitter) 1 ea UNSCH PRN OTHER 04/20/18 10:30 Ampicillin Sodium/ Sulbactam Sodium 3 gm/Sodium Chloride 100 ml @ 200 mls/hr Q6H IV 04/22/18 09:00 04/28/18 09:00 04/26/18 08:28 (D50w (Vial) Inj) 25 ml UNSCH PRN IV PUSH 04/22/18 08:30 (NovoLIN R SUPPLEMENTAL SCALE) 1 Q6HR SQ 04/22/18 12:00 (Dilaudid Pf Inj) 0.5 mg Q1H PRN IV PUSH 04/22/18 09:45 04/22/18 13:45 (Lopressor) 12.5 mg Q8HR PO 04/23/18 14:00 Future hold 04/26/18 06:20 (Pepcid) 20 mg BID OG-TUBE 04/23/18 11:30 04/26/18 08:30 (KCl Powder) 20 meq Q12HR OG-TUBE 04/23/18 14:15 04/26/18 08:29 (Duoneb Neb) 1 ampule Q6HR NEB INH 04/24/18 10:00 04/26/18 04:12 (Lovenox Inj) 40 mg Q24H SQ 04/25/18 08:00 04/26/18 07:37 (Lasix) 20 mg BID@,18 PO 04/25/18 09:00 04/26/18 08:29 (Vasotec Inj) 1.25 mg Q8H IV PUSH 04/25/18 11:30 04/26/18 03:23 Dexmedetomidine HCl 200 mcg/ Sodium Chloride 50 ml @ 4.37 mls/hr TITRATE PRN IV 04/25/18 13:15 04/25/18 13:27 (Cordarone) 400 mg Taper Q12HR PO 04/26/18 09:00 05/15/18 08:59 04/26/18 08:29 (Prinivil) 5 mg DAILY PO 04/26/18 09:00 04/26/18 08:30 (ZyPREXA ZYDIS ODT) 5 mg Q8HR PO 04/26/18 06:30 04/26/18 07:37 (Chloraseptic [place]) 2 spray Q2H PRN OROPHARYNG 04/26/18 06:45 04/26/18 07:37 Vital Signs / I&O Vital Signs Date Time Temp Pulse Resp B/P (MAP) Pulse Ox O2 Delivery O2 Flow Rate FiO2 04/26/18 07:48 94 Nasal Cannula 2.00 04/26/18 07:46 98.2 81 20 118/73 (88) 94 04/26/18 07:00 84 04/26/18 03:00 81 04/26/18 03:00 98.2 81 22 135/84 (101) 94 04/26/18 03:00 94 Nasal Cannula 2.00 04/25/18 23:00 98.3 80 22 145/76 (99) 95 04/25/18 23:00 84 04/25/18 23:00 95 Nasal Cannula 2.00 04/25/18 20:54 93 Nasal Cannula 2.00 04/25/18 19:00 98.3 74 22 138/72 (94) 96 04/25/18 19:00 74 04/25/18 19:00 96 Nasal Cannula 2.00 04/25/18 16:29 96 Nasal Cannula 2.00 04/25/18 15:58 96 Nasal Cannula 2.00 04/25/18 15:16 Nasal Cannula 3.00 04/25/18 15:00 98.9 80 20 152/87 (108) 97 04/25/18 15:00 93 04/25/18 13:00 95 Nasal Cannula 3.00 6/4/18 11:00 96 Nasal Cannula 4.00 04/25/18 11:00 100 04/25/18 11:00 98.7 102 24 149/97 (114) 94 Arterial Line I/O 04/25/18 04/25/18 04/25/18 04/26/18 04/26/18 04/26/18 07:00 15:00 23:00 07:00 15:00 23:00 Intake Total 1423 ml 200 ml 200 ml 654 ml Output Total 2695 ml 4000 ml 2300 ml Balance -1272 ml 200 ml -3800 ml -1646 ml Intake Oral 480 ml IV Total 728 ml 200 ml 200 ml 174 ml Tube Feeding 645 ml Tube Irrigant 50 ml Output Urine Total 2600 ml 4000 ml 2300 ml Gastric Drainage Total 95 ml # Voids 11 # Bowel Movements 0 0 Physical Exam Alert, NAD Chest clear CV S1S2 RRR Abd soft ext no edema, perfusing well Tele SR Laboratory Laboratory Tests Test 04/26/18 04:02 White Blood Count 10.1 TH/MM3 Red Blood Count 4.33 MIL/MM3 Hemoglobin 13.0 GM/DL Hematocrit 38.4 % Mean Corpuscular Volume 88.7 FL Mean Corpuscular Hemoglobin 29.9 PG Mean Corpuscular Hemoglobin Concent 33.7 % Red Cell Distribution Width 14.5 % Platelet Count 122 TH/MM3 Mean Platelet Volume 8.7 FL Blood Urea Nitrogen 13 MG/DL Creatinine 0.81 MG/DL Random Glucose 91 MG/DL Calcium Level 9.2 MG/DL Phosphorus Level 3.8 MG/DL Magnesium Level 2.2 MG/DL Sodium Level 142 MEQ/L Potassium Level 3.6 MEQ/L Chloride Level 109 MEQ/L Carbon Dioxide Level 19.0 MEQ/L Anion Gap 14 MEQ/L Estimat Glomerular Filtration Rate 75 ML/MIN Assessment and Plan Problem List: (1) Cardiogenic shock ICD Codes: R57.0 - Cardiogenic shock Status: Resolved (2) Anterior wall myocardial infarction ICD Codes: I21.09 - ST elevation (STEMI) myocardial infarction involving other coronary artery of anterior wall Plan: Cont BB, ACEI (3) Stented coronary artery ICD Codes: Z95.5 - Presence of coronary angioplasty implant and graft Plan: cont ASA 81 + Serafin An MD Apr 26, 2018 09:55
[2018-04-26] MEDS: LISINOPRIL 5 MG TAB PO SCH (20:53)
[2018-04-27] VITALS (13 sets, daily range): BP systolic 94–128; BP diastolic 59–79; PULSE 94–112; RESP 18–22; TEMP 97.5–100.1; O2SAT 93–98
[2018-04-27] MEDS: AMPICILLIN-SULBACTAM INJ 3 GM in SODIUM CHLORIDE 0.9% INJ 100 ML IV SCH ×4 (03:00→21:55)
[2018-04-27] MEDS: RESP: ALBUTEROL 2.5 MG/IPRATROPIUM 0.5 MG NEB (SCH) INH ×4 (03:43→21:33)
[2018-04-27] MEDS: CHLORHEXIDINE GLUCONATE 2 % 1 PACK (2 CLOTHS) TOP SCH (04:00)
[2018-04-27] MEDS: INSULIN NovoLIN REGULAR SUPPLEMENTAL SCALE SQ SCH ×3 (06:00→12:00)
[2018-04-27 06:10] LABS: HEMATOCRIT 39.7 % (35.0-46.0); HEMOGLOBIN 13.4 GM/DL (11.6-15.3); MEAN CELL VOLUME 88.8 FL (80.0-100.0); MEAN CORPUSCULAR HGB CONC 33.7 % (32.0-36.0); MEAN PLATELET VOLUME 8.8 FL (7.0-11.0); PLATELET COUNT 158 TH/MM3 (150-450); RED BLOOD COUNT 4.47 MIL/MM3 (4.00-5.30); RED CELL DISTRIBUTION WIDTH 14.2 % (11.6-17.2); WHITE BLOOD COUNT 10.3 TH/MM3 (4.0-11.0)
[2018-04-27] MEDS: METOPROLOL TARTRATE 25 MG TAB PO SCH ×3 (06:33→22:00)
[2018-04-27] MEDS: OLANZapine ODT 5 MG TAB PO SCH ×3 (06:33→22:00)
[2018-04-27 06:38] LABS: CALCIUM 9.1 MG/DL (8.5-10.1); CREATININE 0.7 MG/DL (0.50-1.00)
[2018-04-27] MEDS: CHLORHEXIDINE 0.12% (ORAL KIT) 15 ML CUP MT SCH ×2 (08:00→20:00)
[2018-04-27] MEDS: ENOXAPARIN SODIUM 40 MG/0.4 ML SYRINGE SQ SCH (08:41)
[2018-04-27] MEDS: ASPIRIN 81 MG CHEW TAB PO SCH (08:41)
[2018-04-27] MEDS: AMIODARONE 200 MG TAB PO SCH ×2 (08:47→21:54)
[2018-04-27] MEDS: FUROSEMIDE 20 MG TAB PO SCH ×2 (08:47→18:28)
[2018-04-27] MEDS: LISINOPRIL 5 MG TAB PO SCH ×2 (08:48→21:00)
[2018-04-27] MEDS: ATORVASTATIN 40 MG TAB PO SCH (08:48)
[2018-04-27] MEDS: FAMOTIDINE 20 MG TAB OG-TUBE SCH ×2 (08:48→21:55)
[2018-04-27] MEDS: SODIUM CHLORIDE 0.9% FLUSH 10 ML FLUSH IV FLUSH SCH ×2 (08:54→21:00)
[2018-04-27] MEDS: POTASSIUM CHLORIDE 20 MEQ PWD PACKET OG-TUBE SCH ×2 (09:00→21:00)
--- NOTE | 2018-04-27 09:01 | HHI.PR ---
Subjective Remarks Patient is seen in the chair she is not in distress. The patient is chest pain is mainly with palpitation. She is coughing on and off nonproductive cough. Does not have any fever or chills. He is more awake and alert. Objective Vitals Vital Signs Date Time Temp Pulse Resp B/P (MAP) Pulse Ox O2 Delivery O2 Flow Rate FiO2 04/27/18 03:00 102 04/27/18 03:00 96 Nasal Cannula 2.00 04/27/18 03:00 99.1 102 18 128/79 (95) 96 04/26/18 23:00 99.0 105 22 136/89 (105) 95 04/26/18 23:00 95 Nasal Cannula 2.00 04/26/18 23:00 105 04/26/18 22:07 95 Nasal Cannula 2.00 04/26/18 19:00 98.9 98 20 136/85 (102) 96 04/26/18 19:00 96 Nasal Cannula 2.00 04/26/18 19:00 98 04/26/18 15:27 95 Nasal Cannula 2.00 04/26/18 15:22 98.2 94 19 131/89 (103) 95 04/26/18 15:00 94 04/26/18 11:45 97 Nasal Cannula 2.00 04/26/18 11:13 94 Nasal Cannula 2.00 04/26/18 11:11 98.4 78 20 123/82 (96) 93 04/26/18 11:00 78 I/O 04/26/18 04/26/18 04/26/18 04/27/18 04/27/18 04/27/18 07:00 15:00 23:00 07:00 15:00 23:00 Intake Total 654 ml 112 ml 1670 ml 580 ml Output Total 2300 ml 1520 ml 700 ml Balance -1646 ml 112 ml 150 ml -120 ml Intake Oral 480 ml 1370 ml 480 ml IV Total 174 ml 112 ml 300 ml 100 ml Output Urine Total 2300 ml 1520 ml 700 ml # Bowel Movements 0 2 1 Result Diagram: 04/27/18 0531 04/27/18 0531 Imaging Last Impressions Chest X-Ray 04/24/18 0600 Signed Impressions: CONCLUSION: Right base consolidation/atelectasis and effusion. This appears worse compared to the prior exam. New mild area of suspected atelectasis or consolidation at the medial left base . Head CT 04/20/18 0430 Signed Impressions: CONCLUSION: Unremarkable study. Objective Remarks GENERAL: Middle-aged appearing female, alert and awake, in no acute distress. HEENT: Normocephalic. Atraumatic. Pupils 4 mm, equal, round, briskly reactive , conjugate. Mucous membranes are moist NECK: Trachea is midline. There is no JVD. CHEST: Decreased breath sounds bibasilar. No wheezing. CARDIOVASCULAR: Normal S1 and S2, regular rhythm. ABDOMEN: Soft, nontender, nondistended. No guarding. MUSCULOSKELETAL: Pulses 2+. No peripheral edema. NEUROLOGICAL: Awake and alert, CN grossly normal, follows commands, no focal deficits. A/P Assessment and Plan Assessment: 47-year-old female with acute myocardial infarction s/p [facility] with PCI to the LAD with resolving myocardial dysfunction. shock and multiorgan failure have resolved. neurologic function returning. agitated delirium continues to be a problem. will add zyprexa today and attempt to wean off precedex. Hypoxic ischemic encephalopathy- resolving. EEG 04/20: generalized slowing, burst suppression, no ictal activity Zyprexa 5 mg q8h Off precedex Avoid long-acting sedatives s/p therapeutic hypothermia, target 34 degrees Celsius, rewarmed 0300 on 04/22 Acute hypoxic and hypercarbic respiratory failure- resolving. Acute cardiogenic pulmonary edema- resolved Pneumonia CXR 04/24 reviewed with bilateral PNA Start rocephin/azithromycin Sputum cultures if obtainable Check legionella and Pneumococcal Ag Monitor blood cultures so far negative Nebs prn wean O2 by [place] for goal spo2 > 90% aggressive pulmonary toilet. OOB. PT/OT consults. Cardiovascular: Acute non-ST elevation myocardial infarction Out of hospital ventricular fibrillation cardiac arrest s/p [facility] with PCI to LAD 04/20 Cardiogenic Shock- resolved Ischemic Cardiomyopathy, acute EF < 20%- resolving. Acute pulmonary hypertension- resolved Off heparin drip IABP discontinued on 04/22 lopressor 12.5mg po q8h- could consider going up on this slowly increase lisinopril to 5mg daily started on enalapril by Dr. Bello: would prefer to transition this to lisinopril for ease of daily PO dosing. will leave that up to Dr. Bello. Aspirin/Brilinta daily Cardiology consult: Dr. Bello amiodarone 400mg po BID: will order taper- 400 BID x 7 days, 200 BID x 7 days, 200 daily x 7 days, then off. no evidence to suggest she will need long-term amiodarone therapy. Renal: Acute kidney injury- resolved Likely secondary to poor perfusion from cardiac injury Daily BMP voiding on her own. -- Strict I/Os FEN/GI: Lactic acidosis- resolved Acute metabolic alkalosis- secondary to contraction- resolved. ICU electrolyte protocol passed for regular diet. continue lasix 20mg po q12h Heme/ID: Leukocytosis/ Fever- resolved Thrombocytopenia- resolving. F/U sputum, blood, urine cultures: NGTD On unasyn for empiric antibiotic coverage, will complete 7 day course ( anticipated stop date 04/28) daily CBC. low plt likely secondary to shock, now resolving HIT panel negative. Endocrine: Hyperglycemia of critical illness --SSI q6h. Prophylaxis: GI Prophylaxis Pepcid DVT Prophylaxis -- SCDs lovenox Dispo: PT recommends rehab CM ff Discussed with the patient, mother at bedside, nurse. Dasha Bazan MD Apr 27, 2018 09:01
[2018-04-27] MEDS ORDERED: AMIO200T PO (09:05)
[2018-04-27] MEDS ORDERED: LISI-519 PO (09:05)
[2018-04-27] MEDS ORDERED: FURO20TA PO (09:05)
[2018-04-27] MEDS ORDERED: ATOR40TA16 PO (09:05)
[2018-04-27] MEDS ORDERED: BRIL90TA PO (09:05)
[2018-04-27] MEDS ORDERED: METO25TA3 PO (09:05)
[2018-04-27] MEDS ORDERED: ASPI81 PO (09:05)
--- NOTE | 2018-04-27 09:05 | HHI.DS ---
Discharge Summary Admission Date April 20, 2018 at 04:19 Discharge Date: Apr 28, 2018 Admitting Diagnosis Post code (1) Hypokalemia ICD Code: E87.6 - Hypokalemia (2) Anterior wall myocardial infarction ICD Code: I21.09 - ST elevation (STEMI) myocardial infarction involving other coronary artery of anterior wall (3) Cardiogenic shock ICD Code: R57.0 - Cardiogenic shock Status: Resolved (4) HTN (hypertension) ICD Code: I10 - Essential (primary) hypertension (5) Leukocytosis ICD Code: D72.829 - Elevated white blood cell count, unspecified Status: Acute (6) Pneumonia ICD Code: J18.9 - Pneumonia, unspecified organism Status: Acute (7) Hypoxic encephalopathy ICD Code: G93.1 - Anoxic brain damage, not elsewhere classified Status: Acute (8) Ischemic cardiomyopathy ICD Code: I25.5 - Ischemic cardiomyopathy Status: Acute (9) Impaired mobility and activities of daily living ICD Code: Z74.09 - Other reduced mobility Status: Acute (10) Stented coronary artery ICD Code: Z95.5 - Presence of coronary angioplasty implant and graft Status: Acute Procedures cardiology Dr Bello S/P Left heart catheterization, left ventriculography, coronary angiography, complex balloon angioplasty and stenting of the left anterior descending artery with balloon angioplasty of the major diagonal branch through the side of the stent in the LAD, right femoral angiography, and intraaortic balloon pump insertion. Brief History - From Admission NOTE: Patient name is ANA LOPES. [id number]. 1970 This is a 47yF with history of 2ppd tobacco use who presented on 04/18 with complaints of chest pain radiating to the back. she was diagnosed at that time with atypical chest pain and GERD and sent home with azithromycin, ciprofloxacin , famotidine, and omeprazole. Tonight, she again complained to her daughter of crushing substernal chest pain. EMS was called, but the patient collapsed. presenting rhythm was V. Fib. patient was defibrillated initially x 1 with ROSC but decompensated into v. fib again requiring multiple rounds of epi and defibrillation before ROSC was obtained. Per ER physician, she was ? following commands post arrest, but then had seizure-like activity and was given iv ativan. On my arrival to the ER, she has briskly reactive pupils, + cough, + gag. RUE is ?purposeful and questionably crossing midline. LUE appears to be extensor posturing. EKG post ROSC by EMS shows ST elevations in the precordial leads, but EKG on arrival to ED does not demonstrate ST elevations. bedside critical care echo demonstrates what appears to be anteroseptal hypokinesis which is regional. labs remarkable for trop 0.08. no additional information available from patient due to her clinical condition. ROS unobtainable. I discussed the case with Dr. Bello as well as Dr. Lynn. Dr. Lynn would like to stabilize the patient and take her urgently for [facility]. We both agree she is a good post-arrest induced hypothermia candidate, but until intervention is performed, will anticipate targeted temperature therapy targeting 36 degrees Celsius to mitigate any bleeding concerns. CBC/BMP: 04/27/18 0531 04/27/18 0531 Significant Findings Laboratory Tests Test 04/25/18 04:00 04/26/18 04:02 04/27/18 05:31 White Blood Count 11.9 TH/MM3 (4.0-11.0) Red Blood Count 3.86 MIL/MM3 (4.00-5.30) Hemoglobin 11.3 GM/DL (11.6-15.3) Hematocrit 34.9 % (35.0-46.0) Platelet Count 106 TH/MM3 (150-450) 122 TH/MM3 (150-450) Calcium Level 8.4 MG/DL (8.5-10.1) Phosphorus Level 5.0 MG/DL (2.5-4.9) Magnesium Level 2.7 MG/DL (1.5-2.5) Sodium Level 152 MEQ/L (136-145) Chloride Level 117 MEQ/L (98-107) 109 MEQ/L (98-107) 111 MEQ/L (98-107) Estimat Glomerular Filtration Rate 77 ML/MIN (>89) 75 ML/MIN (>89) Carbon Dioxide Level 19.0 MEQ/L (21.0-32.0) 18.0 MEQ/L (21.0-32.0) Imaging Last Impressions Chest X-Ray 04/24/18 0600 Signed Impressions: CONCLUSION: Right base consolidation/atelectasis and effusion. This appears worse compared to the prior exam. New mild area of suspected atelectasis or consolidation at the medial left base . Head CT 04/20/18 0430 Signed Impressions: CONCLUSION: Unremarkable study. PE at Discharge GENERAL: Middle-aged appearing female, alert and awake, in no acute distress. HEENT: Normocephalic. Atraumatic. Pupils 4 mm, equal, round, briskly reactive , conjugate. Mucous membranes are moist NECK: Trachea is midline. There is no JVD. CHEST: Decreased breath sounds bibasilar. No wheezing. CARDIOVASCULAR: Normal S1 and S2, regular rhythm. ABDOMEN: Soft, nontender, nondistended. No guarding. MUSCULOSKELETAL: Pulses 2+. No peripheral edema. NEUROLOGICAL: Awake and alert, CN grossly normal, follows commands, no focal deficits. Hospital Course 47-year-old female with acute myocardial infarction s/p LHC with PCI to the LAD with resolving myocardial dysfunction. shock and multiorgan failure have resolved. neurologic function returning. agitated delirium continues to be a problem. Zyprexa added, off precedex. Patient improving, needs rehab or physical therapy at discharge. Case management also consulted for discharge planning. Hypoxic ischemic encephalopathy- resolving. EEG 04/20: generalized slowing, burst suppression, no ictal activity Zyprexa 5 mg q8h Off precedex Avoid long-acting sedatives s/p therapeutic hypothermia, target 34 degrees Celsius, rewarmed 0300 on 04/22 Acute hypoxic and hypercarbic respiratory failure- resolving. Acute cardiogenic pulmonary edema- resolved Pneumonia CXR 04/24 reviewed with bilateral PNA Start rocephin/azithromycin Sputum cultures if obtainable Check legionella and Pneumococcal Ag Monitor blood cultures so far negative Nebs prn wean O2 by nc for goal spo2 > 90% aggressive pulmonary toilet. OOB. PT/OT consults. Cardiovascular: Acute non-ST elevation myocardial infarction Out of hospital ventricular fibrillation cardiac arrest s/p C with PCI to LAD 04/20 Cardiogenic Shock- resolved Ischemic Cardiomyopathy, acute EF < 20%- resolving. Acute pulmonary hypertension- resolved Off heparin drip IABP discontinued on 04/22 lopressor 12.5mg po q8h- could consider going up on this slowly increase lisinopril to 5mg daily started on enalapril by Dr. Bello: would prefer to transition this to lisinopril for ease of daily PO dosing. will leave that up to Dr. Bello. Aspirin/Brilinta daily Cardiology consult: Dr. Bello amiodarone 400mg po BID: will order taper- 400 BID x 7 days, 200 BID x 7 days, 200 daily x 7 days, then off. no evidence to suggest she will need long-term amiodarone therapy. Renal: Acute kidney injury- resolved Likely secondary to poor perfusion from cardiac injury Daily BMP voiding on her own. -- Strict I/Os FEN/GI: Lactic acidosis- resolved Acute metabolic alkalosis- secondary to contraction- resolved. ICU electrolyte protocol passed for regular diet. continue lasix 20mg po q12h Heme/ID: Leukocytosis/ Fever- resolved Thrombocytopenia- resolving. F/U sputum, blood, urine cultures: NGTD On unasyn for empiric antibiotic coverage, will complete 7 day course ( anticipated stop date 04/28) daily CBC. low plt likely secondary to shock, now resolving HIT panel negative. Endocrine: Hyperglycemia of critical illness --SSI q6h. Prophylaxis: GI Prophylaxis Pepcid DVT Prophylaxis -- SCDs lovenox Dispo: PT recommends rehab CM ff Discussed with the patient, mother at bedside, nurse. Discussed with physical therapy. Patient needs more often PT. Physical therapy recommends rehab. Evaluated by [facility]. Patient is accepted to [facility]. Patient is discharged in stable condition to [facility]. Case management following for discharge planning Pt Condition on Discharge: Stable Discharge Disposition: Rehab Inpatient Discharge Time: > 30 minutes Discharge Instructions DIET: Follow Instructions for: Heart Healthy Diet Activities you can perform: Regular-No Restrictions Follow up Referrals: Cardiology - 1 Week PCP Follow-up - 2-3 Days New Medications: Cefuroxime (Ceftin) 250 Mg Tab 250 MG PO BID for infection , #20 TAB Walker with Front Wheels (Walker with Front Wheels) 1 Mis Mis EA .XX DIRECTED, #1 0 Refills Amiodarone (Amiodarone) 200 Mg Tab 400 MG PO Q12HR for Blood Pressure Management, #60 TAB Aspirin (Tgt Aspirin) 81 Mg Chw 81 MG PO DAILY for Blood Clot Prevention, #30 EA Atorvastatin (Atorvastatin) 40 Mg Tab 40 MG PO DAILY for Cholesterol Management, #30 TAB Furosemide (Furosemide) 20 Mg Tab 20 MG PO BID@09,18 for Blood Pressure Management, #30 TAB Lisinopril (Lisinopril) 5 Mg Tab 5 MG PO BID for Blood Pressure Management, #60 TAB Metoprolol Tartrate (Metoprolol Tartrate) 25 Mg Tab 12.5 MG PO Q8HR for Blood Pressure Management, #60 TAB Ticagrelor (Brilinta) 90 Mg Tab 90 MG PO BID for Blood Clot Prevention, #120 TAB Continued Medications: Azithromycin (Azithromycin) 250 Mg Tab 250 MG PO DIRECTED for Infection, #6 TAB 0 Refills Take 2 tabs (500 mg) on day 1 then 1 tab daily x 4 days. Ciprofloxacin (Ciprofloxacin) 500 Mg Tab 500 MG PO BID for Infection, TAB 0 Refills Citalopram (Citalopram) 20 Mg Tab 20 MG PO DAILY for Control Depression, #30 TAB 0 Refills Omeprazole (Omeprazole) 40 Mg Cap 40 MG DAILY, #30 CAP 0 Refills Dasha Bazan MD Apr 27, 2018 09:05
[2018-04-27] MEDS ORDERED: WALKER WHEELS/F1 MIS (09:08)
[2018-04-27] MEDS: TICAGRELOR 90 MG TAB PO SCH ×2 (10:11→21:54)
[2018-04-27] MEDS ORDERED: CEFU1TAB18 PO (10:30)
--- NOTE | 2018-04-27 10:45 | PD.CARD.PN ---
Subjective Subjective Remarks alert, no chest pain or dyspnea, c/o being tired Objective Medications Current Medications Medications (Trade) Dose Ordered Sig/Chente Route Start Time Stop Time Status Last Admin Magnesium Sulfate 4 gm/Sodium Chloride 250 ml @ 62.5 mls/hr Q4H PRN IV 04/20/18 04:30 (Lacrilube Opht Oint) 1 applic Q4H PRN EACH EYE 04/20/18 04:30 (NS Flush) 2 ml BID IV FLUSH 04/20/18 09:00 04/27/18 08:54 (NS Flush) 2 ml UNSCH PRN IV FLUSH 04/20/18 04:30 Miscellaneous Information 0 ml @ 0 mls/hr UNSCH IV 04/20/18 04:30 ([facility] Nursing Information) 1 Q361D XX 04/20/18 04:30 (Chlorhexidine 2% Cloth) Taper DAILY@04 TOP 04/21/18 04:00 04/17/19 03:59 04/26/18 04:00 (Chlorhexidine 2% Cloth) 3 pack UNSCH PRN TOP 04/20/18 04:30 Potassium Chloride 100 ml @ 50 mls/hr Q2H PRN IV 04/20/18 04:30 04/20/18 19:00 Potassium Chloride 100 ml @ 50 mls/hr Q2H PRN IV 04/20/18 04:30 (K-Lyte Cl Eff) 50 meq UNSCH PRN PO 04/20/18 04:30 04/26/18 06:20 Potassium Chloride 100 ml @ 25 mls/hr UNSCH PRN IV 04/20/18 04:30 Potassium Chloride 100 ml @ 50 mls/hr Q2H PRN IV 04/20/18 04:30 Magnesium Sulfate 4 gm/Sodium Chloride 100 ml @ 50 mls/hr UNSCH PRN IV 04/20/18 04:30 (Mag-Ox) 800 mg UNSCH PRN PO 04/20/18 04:30 Magnesium Sulfate 2 gm/Sodium Chloride 100 ml @ 50 mls/hr UNSCH PRN IV 04/20/18 04:30 04/21/18 07:29 (K-Phos) 2,000 mg Q4H PRN PO 04/20/18 04:30 Sodium Phosphate 30 mmol/Sodium Chloride 250 ml @ 42 mls/hr UNSCH PRN IV 04/20/18 04:30 (K-Phos) 2,000 mg UNSCH PRN PO/TUBE 04/20/18 04:30 Potassium Phosphate 30 mmol/ Sodium Chloride 260 ml @ 42 mls/hr UNSCH PRN IV 04/20/18 04:30 (Peridex 0.12% Liq) 15 ml BID@08,20 MT 04/20/18 08:00 04/25/18 08:06 (Duoneb Neb) 1 ampule Q2HR NEB PRN INH 04/20/18 04:30 (Aspirin Chew) 81 mg DAILY PO 04/21/18 09:00 04/27/18 08:41 (Brilinta) 90 mg BID PO 04/20/18 21:00 04/27/18 10:11 (Lipitor) 40 mg DAILY PO 04/21/18 09:00 04/27/18 08:48 (Pill Splitter) 1 ea UNSCH PRN OTHER 04/20/18 10:30 Ampicillin Sodium/ Sulbactam Sodium 3 gm/Sodium Chloride 100 ml @ 200 mls/hr Q6H IV 04/22/18 09:00 04/28/18 09:00 04/27/18 10:39 (D50w (Vial) Inj) 25 ml UNSCH PRN IV PUSH 04/22/18 08:30 (NovoLIN R SUPPLEMENTAL SCALE) 1 Q6HR SQ 04/22/18 12:00 (Dilaudid Pf Inj) 0.5 mg Q1H PRN IV PUSH 04/22/18 09:45 04/22/18 13:45 (Lopressor) 12.5 mg Q8HR PO 04/23/18 14:00 Future hold 04/27/18 06:33 (Pepcid) 20 mg BID OG-TUBE 04/23/18 11:30 04/27/18 08:48 (KCl Powder) 20 meq Q12HR OG-TUBE 04/23/18 14:15 04/27/18 09:00 (Duoneb Neb) 1 ampule Q6HR NEB INH 04/24/18 10:00 04/27/18 10:00 (Lovenox Inj) 40 mg Q24H SQ 04/25/18 08:00 04/27/18 08:41 (Lasix) 20 mg BID@,18 PO 04/25/18 09:00 04/27/18 08:47 (Cordarone) 400 mg Taper Q12HR PO 04/26/18 09:00 05/15/18 08:59 04/27/18 08:47 (ZyPREXA ZYDIS ODT) 5 mg Q8HR PO 04/26/18 06:30 04/27/18 06:33 (Chloraseptic [place]) 2 spray Q2H PRN OROPHARYNG 04/26/18 06:45 04/26/18 07:37 (Prinivil) 5 mg BID PO 04/26/18 21:00 04/27/18 08:48 Ceftriaxone Sodium 1000 mg/ Sodium Chloride 100 ml @ 200 mls/hr Q24H IV 04/27/18 10:30 UNV Azithromycin 500 mg/Sodium Chloride 250 ml @ 250 mls/hr Q24H IV 04/27/18 10:30 UNV Vital Signs / I&O Vital Signs Date Time Temp Pulse Resp B/P (MAP) Pulse Ox O2 Delivery O2 Flow Rate FiO2 04/27/18 10:25 Nasal Cannula 2.00 04/27/18 09:00 105 04/27/18 08:00 104 04/27/18 07:00 100.1 94 18 114/74 (87) 94 04/27/18 07:00 108 04/27/18 07:00 95 Nasal Cannula 2.00 04/27/18 03:00 102 04/27/18 03:00 96 Nasal Cannula 2.00 04/27/18 03:00 99.1 102 18 128/79 (95) 96 04/26/18 23:00 99.0 105 22 136/89 (105) 95 04/26/18 23:00 95 Nasal Cannula 2.00 04/26/18 23:00 105 04/26/18 22:07 95 Nasal Cannula 2.00 04/26/18 19:00 98.9 98 20 136/85 (102) 96 04/26/18 19:00 96 Nasal Cannula 2.00 04/26/18 19:00 98 04/26/18 15:27 95 Nasal Cannula 2.00 04/26/18 15:22 98.2 94 19 131/89 (103) 95 04/26/18 15:00 94 04/26/18 11:45 97 Nasal Cannula 2.00 04/26/18 11:13 94 Nasal Cannula 2.00 04/26/18 11:11 98.4 78 20 123/82 (96) 93 04/26/18 11:00 78 I/O 04/26/18 04/26/18 04/26/18 04/27/18 04/27/18 04/27/18 07:00 15:00 23:00 07:00 15:00 23:00 Intake Total 654 ml 112 ml 1670 ml 580 ml Output Total 2300 ml 1520 ml 700 ml Balance -1646 ml 112 ml 150 ml -120 ml Intake Oral 480 ml 1370 ml 480 ml IV Total 174 ml 112 ml 300 ml 100 ml Output Urine Total 2300 ml 1520 ml 700 ml # Bowel Movements 0 2 1 Physical Exam Alert, NAD, sitting in chair Chest clear CV S1S2 RRR Abd soft ext no edema, perfusing well Tele SR Laboratory Laboratory Tests Test 04/27/18 05:31 White Blood Count 10.3 TH/MM3 Red Blood Count 4.47 MIL/MM3 Hemoglobin 13.4 GM/DL Hematocrit 39.7 % Mean Corpuscular Volume 88.8 FL Mean Corpuscular Hemoglobin 30.0 PG Mean Corpuscular Hemoglobin Concent 33.7 % Red Cell Distribution Width 14.2 % Platelet Count 158 TH/MM3 Mean Platelet Volume 8.8 FL Blood Urea Nitrogen 16 MG/DL Creatinine 0.70 MG/DL Random Glucose 96 MG/DL Calcium Level 9.1 MG/DL Sodium Level 142 MEQ/L Potassium Level 3.8 MEQ/L Chloride Level 111 MEQ/L Carbon Dioxide Level 18.0 MEQ/L Anion Gap 13 MEQ/L Estimat Glomerular Filtration Rate 89 ML/MIN Assessment and Plan Problem List: (1) Cardiogenic shock ICD Codes: R57.0 - Cardiogenic shock Status: Resolved (2) Anterior wall myocardial infarction ICD Codes: I21.09 - ST elevation (STEMI) myocardial infarction involving other coronary artery of anterior wall (3) Stented coronary artery ICD Codes: Z95.5 - Presence of coronary angioplasty implant and graft Assessment and Plan continues to improve Serafin Bello MD Apr 27, 2018 10:45
[2018-04-27 12:17] LABS: ALBUMIN 3.4 GM/DL (3.4-5.0); ALT (GPT) 109 U/L (10-53); AST (GOT) 139 U/L (15-37); DIRECT BILIRUBIN ADULT 0.2 MG/DL (0.0-0.2)
[2018-04-27 12:18] LABS: ALKALINE PHOSPHATASE 88 U/L (45-117); INDIRECT BILIRUBIN 0.6 MG/DL (0.0-0.8); TOTAL BILIRUBIN ADULT 0.8 MG/DL (0.2-1.0); TOTAL PROTEIN 7.8 GM/DL (6.4-8.2)
[2018-04-27] MEDS: cefTRIAXone INJ 1,000 MG in SODIUM CHLORIDE 0.9% INJ 100 ML IV SCH (12:20)
[2018-04-27] MEDS ORDERED: AZITHROMYCIN INJ 500 MG in SODIUM CHLOR 0.9% 250 ML INJ 250 ML IV SCH (13:00)
[2018-04-27] MEDS ORDERED: ACETAMINOPHEN/HYDROcodone 325 MG/5 MG TAB PO PRN (15:00)
[2018-04-27 16:13] LABS: HEMOGLOBIN A1C 5.3 % (4.3-6.0)
[2018-04-27] MEDS: POTASSIUM CHLORIDE 10 MEQ CONTROLLED RELEASE TAB PO SCH (21:54)
[2018-04-28] VITALS (10 sets, daily range): BP systolic 105–118; BP diastolic 66–73; PULSE 90–113; RESP 20; TEMP 97.6–98.2; O2SAT 93–98
[2018-04-28] MEDS: RESP: ALBUTEROL 2.5 MG/IPRATROPIUM 0.5 MG NEB (SCH) INH ×2 (03:11→09:56)
[2018-04-28] MEDS: AMPICILLIN-SULBACTAM INJ 3 GM in SODIUM CHLORIDE 0.9% INJ 100 ML IV SCH ×2 (03:36→09:46)
[2018-04-28] MEDS: CHLORHEXIDINE GLUCONATE 2 % 1 PACK (2 CLOTHS) TOP SCH (04:00)
[2018-04-28 04:14] LABS: AUTOMATED NEUTROPHIL # 7.6 TH/MM3 (1.8-7.7); BASOPHIL % 0.4 % (0.0-2.0); EOSINOPHIL # 0.2 TH/MM3 (0-0.4); EOSINOPHIL % 1.8 % (0.0-4.0); HEMATOCRIT 41.6 % (35.0-46.0); HEMOGLOBIN 13.5 GM/DL (11.6-15.3); LYMPH % 22.9 % (9.0-44.0); LYMPHOCYTE # 2.7 TH/MM3 (1.0-4.8); MEAN CELL VOLUME 90.7 FL (80.0-100.0); MEAN CORPUSCULAR HEMOGLOBIN 29.5 PG (27.0-34.0); MEAN CORPUSCULAR HGB CONC 32.5 % (32.0-36.0); MEAN PLATELET VOLUME 8.8 FL (7.0-11.0); MONO % 11.1 % (0.0-8.0); MONOCYTE # 1.3 TH/MM3 (0-0.9); NEUT % 63.8 % (16.0-70.0); PLATELET COUNT 193 TH/MM3 (150-450); RED BLOOD COUNT 4.58 MIL/MM3 (4.00-5.30); RED CELL DISTRIBUTION WIDTH 13.9 % (11.6-17.2); WHITE BLOOD COUNT 11.9 TH/MM3 (4.0-11.0)
[2018-04-28 04:44] LABS: BICARBONATE 20.5 MEQ/L (21.0-32.0); CALCIUM 8.8 MG/DL (8.5-10.1); CREATININE 0.78 MG/DL (0.50-1.00)
[2018-04-28 05:35] LABS: BANDS 3 % (0-6); LYMPHOCYTES 20 % (9-44); METAMYELOCYTES 2 % (0-1); MONOCYTES 7 % (0-8); MYELOCYTES 3 % (0-0); NEUTROPHIL # MANUAL DIFF 8.6 TH/MM3 (1.8-7.7); POLYS (SEG NEUTROPHILS) 64 % (16-70)
[2018-04-28] MEDS: OLANZapine ODT 5 MG TAB PO SCH ×2 (06:14→14:15)
[2018-04-28] MEDS: METOPROLOL TARTRATE 25 MG TAB PO SCH ×2 (06:14→14:15)
[2018-04-28] MEDS: CHLORHEXIDINE 0.12% (ORAL KIT) 15 ML CUP MT SCH (08:00)
[2018-04-28] MEDS: POTASSIUM CHLORIDE 20 MEQ PWD PACKET OG-TUBE SCH (09:00)
[2018-04-28] MEDS: ATORVASTATIN 40 MG TAB PO SCH (09:31)
[2018-04-28] MEDS: FAMOTIDINE 20 MG TAB OG-TUBE SCH (09:31)
[2018-04-28] MEDS: POTASSIUM CHLORIDE 10 MEQ CONTROLLED RELEASE TAB PO SCH (09:32)
[2018-04-28] MEDS: TICAGRELOR 90 MG TAB PO SCH (09:32)
[2018-04-28] MEDS: FUROSEMIDE 20 MG TAB PO SCH (09:32)
[2018-04-28] MEDS: ASPIRIN 81 MG CHEW TAB PO SCH (09:32)
[2018-04-28] MEDS: AMIODARONE 200 MG TAB PO SCH (09:32)
[2018-04-28] MEDS: LISINOPRIL 5 MG TAB PO SCH (09:33)
[2018-04-28] MEDS: ENOXAPARIN SODIUM 40 MG/0.4 ML SYRINGE SQ SCH (09:33)
[2018-04-28] MEDS: SODIUM CHLORIDE 0.9% FLUSH 10 ML FLUSH IV FLUSH SCH (09:33)
--- NOTE | 2018-04-28 12:43 | HHI.PR ---
Subjective Remarks Says pain medications are helping with her chest pain. She is breathing better. No cough no fever or chills. Denies nausea vomiting she is able to eat without any problems. Objective Vitals Vital Signs Date Time Temp Pulse Resp B/P (MAP) Pulse Ox O2 Delivery O2 Flow Rate FiO2 04/28/18 11:17 Room Air 04/28/18 11:00 97.8 109 20 110/66 (81) 98 04/28/18 11:00 113 04/28/18 09:56 94 21 04/28/18 07:45 97.6 96 20 105/66 (79) 98 04/28/18 07:33 96 04/28/18 05:00 102 04/28/18 04:00 100 04/28/18 03:00 93 Room Air 04/28/18 03:00 98.2 95 20 118/73 (88) 93 04/28/18 03:00 95 04/28/18 02:00 94 04/28/18 01:00 92 04/28/18 00:00 90 04/27/18 23:00 97.7 96 22 94/59 (71) 93 04/27/18 23:00 96 04/27/18 23:00 93 Room Air 04/27/18 22:00 100 04/27/18 21:33 96 21 04/27/18 21:00 106 04/27/18 20:00 106 04/27/18 19:27 20 04/27/18 19:00 109 04/27/18 19:00 97.7 109 20 100/67 (78) 95 04/27/18 19:00 95 Room Air 04/27/18 18:00 112 04/27/18 15:00 97.5 102 18 102/62 (75) 98 04/27/18 15:00 99 04/27/18 15:00 98 Room Air I/O 04/27/18 04/27/18 04/27/18 04/28/18 04/28/18 04/28/18 06:59 14:59 22:59 06:59 14:59 22:59 Intake Total 580 ml 720 ml 240 ml Output Total 700 ml 1000 ml 500 ml Balance -120 ml -280 ml -260 ml Intake Oral 480 ml 720 ml 240 ml IV Total 100 ml Output Urine Total 700 ml 1000 ml 500 ml # Bowel Movements 1 1 1 Result Diagram: 04/28/18 0333 04/28/18 0333 Imaging Last Impressions Chest X-Ray 04/24/18 0600 Signed Impressions: CONCLUSION: Right base consolidation/atelectasis and effusion. This appears worse compared to the prior exam. New mild area of suspected atelectasis or consolidation at the medial left base . Head CT 04/20/18 0430 Signed Impressions: CONCLUSION: Unremarkable study. Objective Remarks GENERAL: Middle-aged appearing female, alert and awake, in no acute distress. HEENT: Normocephalic. Atraumatic. Pupils 4 mm, equal, round, briskly reactive , conjugate. Mucous membranes are moist NECK: Trachea is midline. There is no JVD. CHEST: Decreased breath sounds bibasilar. No wheezing. CARDIOVASCULAR: Normal S1 and S2, regular rhythm. ABDOMEN: Soft, nontender, nondistended. No guarding. MUSCULOSKELETAL: Pulses 2+. No peripheral edema. NEUROLOGICAL: Awake and alert, CN grossly normal, follows commands, no focal deficits. A/P Assessment and Plan 47-year-old female with acute myocardial infarction s/p C with PCI to the LAD with resolving myocardial dysfunction. shock and multiorgan failure have resolved. neurologic function returning. agitated delirium continues to be a problem. Zyprexa added, off precedex. Patient improving, needs rehab or physical therapy at discharge. Case management also consulted for discharge planning. Hypoxic ischemic encephalopathy- resolving. EEG 04/20: generalized slowing, burst suppression, no ictal activity Zyprexa 5 mg q8h Off precedex Avoid long-acting sedatives s/p therapeutic hypothermia, target 34 degrees Celsius, rewarmed 0300 on 04/22 Acute hypoxic and hypercarbic respiratory failure- resolving. Acute cardiogenic pulmonary edema- resolved Pneumonia CXR 04/24 reviewed with bilateral PNA Start rocephin/azithromycin Sputum cultures if obtainable Check legionella and Pneumococcal Ag Monitor blood cultures so far negative Nebs prn wean O2 by nc for goal spo2 > 90% aggressive pulmonary toilet. OOB. PT/OT consults. Cardiovascular: Acute non-ST elevation myocardial infarction Out of hospital ventricular fibrillation cardiac arrest s/p [facility] with PCI to LAD 04/20 Cardiogenic Shock- resolved Ischemic Cardiomyopathy, acute EF < 20%- resolving. Acute pulmonary hypertension- resolved Off heparin drip IABP discontinued on 04/22 lopressor 12.5mg po q8h- could consider going up on this slowly increase lisinopril to 5mg daily started on enalapril by Dr. Bello: would prefer to transition this to lisinopril for ease of daily PO dosing. will leave that up to Dr. Bello. Aspirin/Brilinta daily Cardiology consult: Dr. Bello amiodarone 400mg po BID: will order taper- 400 BID x 7 days, 200 BID x 7 days, 200 daily x 7 days, then off. no evidence to suggest she will need long-term amiodarone therapy. Renal: Acute kidney injury- resolved Likely secondary to poor perfusion from cardiac injury Daily BMP voiding on her own. -- Strict I/Os FEN/GI: Lactic acidosis- resolved Acute metabolic alkalosis- secondary to contraction- resolved. ICU electrolyte protocol passed for regular diet. continue lasix 20mg po q12h Heme/ID: Leukocytosis/ Fever- resolved Thrombocytopenia- resolving. F/U sputum, blood, urine cultures: NGTD On unasyn for empiric antibiotic coverage, will complete 7 day course ( anticipated stop date 04/28) daily CBC. low plt likely secondary to shock, now resolving HIT panel negative. Endocrine: Hyperglycemia of critical illness --SSI q6h. Prophylaxis: GI Prophylaxis Pepcid DVT Prophylaxis -- SCDs lovenox Dispo: PT recommends rehab CM ff Discussed with the patient, mother at bedside, nurse. Discussed with physical therapy. Patient needs more often PT. Physical therapy recommends rehab. Case management following for discharge planning Dasha Bazan MD Apr 28, 2018 12:43
[2018-04-28] MEDS: cefTRIAXone INJ 1,000 MG in SODIUM CHLORIDE 0.9% INJ 100 ML IV SCH (12:44)
[2018-04-28] MEDS ORDERED: AMIO200T PO (21:44)
== END 2018-04-28 14:50 | DRG 270 ==
LOC: NEPE 03:39 → EDBD 04:19 → NEDA 04:19 → HCVI 05:38 → HCPC 04-26 18:20
PROVIDERS: ADMIT Hospitalist; ATTEND Hospitalist
PROC: 5A02210 Assistance with Cardiac Output using Balloon Pump, Continuous (ICD-10-PCS; principal; 2018-04-20)
PROC: 027034Z Dilation of Coronary Artery, One Artery with Drug-eluting Intraluminal Device, Percutaneous Approach (ICD-10-PCS; 2018-04-20)
PROC: 5A12012 Performance of Cardiac Output, Single, Manual (ICD-10-PCS; 2018-04-20)
PROC: 02703DZ Dilation of Coronary Artery, One Artery with Intraluminal Device, Percutaneous Approach (ICD-10-PCS; 2018-04-20)
PROC: 02703ZZ Dilation of Coronary Artery, One Artery, Percutaneous Approach (ICD-10-PCS; 2018-04-20)
PROC: 4A023N7 Measurement of Cardiac Sampling and Pressure, Left Heart, Percutaneous Approach (ICD-10-PCS; 2018-04-20)
PROC: B2151ZZ Fluoroscopy of Left Heart using Low Osmolar Contrast (ICD-10-PCS; 2018-04-20)
PROC: B2111ZZ Fluoroscopy of Multiple Coronary Arteries using Low Osmolar Contrast (ICD-10-PCS; 2018-04-20)
PROC: B41F1ZZ Fluoroscopy of Right Lower Extremity Arteries using Low Osmolar Contrast (ICD-10-PCS; 2018-04-20)
PROC: 6A4Z0ZZ Hypothermia, Single (ICD-10-PCS; 2018-04-20)
PROC: 03HY32Z Insertion of Monitoring Device into Upper Artery, Percutaneous Approach (ICD-10-PCS; 2018-04-20)
PROC: 06HY33Z Insertion of Infusion Device into Lower Vein, Percutaneous Approach (ICD-10-PCS; 2018-04-20)
PROC: 5A2204Z Restoration of Cardiac Rhythm, Single (ICD-10-PCS; 2018-04-20)
PROC: 02H633Z Insertion of Infusion Device into Right Atrium, Percutaneous Approach (ICD-10-PCS; 2018-04-20)
PROC: 02HQ32Z Insertion of Monitoring Device into Right Pulmonary Artery, Percutaneous Approach (ICD-10-PCS; 2018-04-20)
PROC: 5A1955Z Respiratory Ventilation, Greater than 96 Consecutive Hours (ICD-10-PCS; 2018-04-20)
DX: I21.02 ST elevation (STEMI) myocardial infarction involving left anterior descending coronary artery (principal); R57.0 Cardiogenic shock; I49.01 Ventricular fibrillation; K72.00 Acute and subacute hepatic failure without coma; J96.01 Acute respiratory failure with hypoxia; J96.02 Acute respiratory failure with hypercapnia; E87.2 Acidosis; G93.1 Anoxic brain damage, not elsewhere classified; J69.0 Pneumonitis due to inhalation of food and vomit; E87.3 Alkalosis; D69.6 Thrombocytopenia, unspecified; I50.23 Acute on chronic systolic (congestive) heart failure; N17.9 Acute kidney failure, unspecified; I27.20 Pulmonary hypertension, unspecified; I25.10 Atherosclerotic heart disease of native coronary artery without angina pectoris; I25.5 Ischemic cardiomyopathy; E87.6 Hypokalemia; F32.9 Major depressive disorder, single episode, unspecified; K21.9 Gastro-esophageal reflux disease without esophagitis; J45.909 Unspecified asthma, uncomplicated; F17.210 Nicotine dependence, cigarettes, uncomplicated; R73.9 Hyperglycemia, unspecified; I11.0 Hypertensive heart disease with heart failure; R26.9 Unspecified abnormalities of gait and mobility; Z85.41 Personal history of malignant neoplasm of cervix uteri
CPT/HCPCS: 33967; 36556; 36600; 51702; 70450; 71045; 76937; 80048; 80053; 80061; 80076; 80307; 81001; 82310; 82550; 82552; 82805; 82948; 83036; 83605; 83690; 83735; 83880; 84100; 84145; 84155; 84484; 85002; 85007; 85014; 85025; 85027; 85610; 85730; 86022; 86850; 86900; 86901; 87040; 87070; 87086; 87205; 87449; 87641; 92928; 92929; 92950; 93005; 93306; 93458; 94002; 94003; 94150; 94640; 94664; 94667; 94668; 94799; 95819; 96374; C1725; C1769; C1874; C1887; C1893; J0171; J0282; J0295; J0456; J0696; J1120; J1170; J1250; J1325; J1630; J1644; J1650; J1815; J1817; J1940; J2060; J2260; J3010; J3475; J3480; J7030; J7050; J7060; L1830; P9045; P9047; Q9967